=== PATIENT | male | born 1955 | race Caucasian/White ===

== ENCOUNTER 2019-07-05 10:54 | Emergency (ER) | payer OTHER, SELFPAY ==
[2019-07-05 11:01] VITALS: BP 143/76; PULSE 67; RESP 18; TEMP 35.9; O2SAT 97
[2019-07-05 11:13] LABS: Add Manual Diff / Slide Review NO; Basophils Absolute Auto 0 /uL (0-100); Basophils Percent Auto 0.8 % (0-2); Eosinophils Absolute Auto 200 /uL (0-450); Eosinophils Percent Auto 3.3 % (2-4); Hematocrit 46.8 % (41-53); Hemoglobin 16.1 g/dL (13.5-17.5); Lymphocytes Absolute Auto 1300 /uL (1100-4500); Lymphocytes Percent Auto 21.7 % (25-40); Mean Corpuscular HGB Conc 34.3 % (30-36); Mean Corpuscular Volume 93.2 fL (80-100); Monocytes Absolute Auto 700 /uL (0-900); Monocytes Percent Auto 11.4 % (3-14); Neutrophils Absolute Auto 3900 /uL (1500-7000); Neutrophils Percent Auto 62.8 % (50-75); Platelet Count 164 X10^3/uL (150-400); Red Blood Cell Count 5.02 X10^6/uL (4.5-5.9); Red Cell Distribution Width 14.5 % (11.6-14.8); White Blood Cell Count 6.2 X10^3/uL (4.5-11.0)
[2019-07-05 11:20] LABS: Prothrombin Time 11.4 SECONDS (10.1-12.7)
[2019-07-05 11:22] LABS: PTT Partial Thromboplastin Tim 32 SECONDS (26.4-36.2)
[2019-07-05 11:25] LABS: Alanine Aminotransferase 15 IU/L (<50); Albumin 4.3 g/dL (3.5-5.0); Albumin Globulin Ratio 1.6 (1.0-2.8); Alkaline Phosphatase 53 U/L (38-126); Aspartate Aminotransferase 25 IU/L (17-59); Bilirubin Total 0.9 mg/dL (0.2-1.3); Blood Urea Nitrogen 10 mg/dL (9-20); Calcium 9.4 mg/dL (8.4-10.2); Carbon Dioxide 28 mmol/L (22-32); Chloride 106 mmol/L (98-107); Estimated Glomerular Filt Rate > 60.0 mL/min (>60); Globulin 2.7 g/dL (1.7-4.1); Glucose 101 mg/dL (80-110); HEMOLYSIS < 15 (0-50); Lipase 45 U/L (23-300); Potassium 4.6 mmol/L (3.4-5.1); Sodium 140 mmol/L (137-145)
--- NOTE | 2019-07-05 13:33 | DI.CT.S_ITS ---
PROCEDURE: CT CHEST ABD PEL W CON INDICATIONS: severe R sided pain, extensive CA hx TECHNIQUE: After the administration of intravenous contrast, 5 mm thick sections acquired from the lung apices to the symphysis. 5 mm coronal and sagittal reformats were performed, with additional 7 mm MIP reformats through the lungs. For radiation dose reduction, the following was used: automated exposure control, adjustment of mA and/or kV according to patient size. COMPARISON: None. FINDINGS: Image quality: Excellent. CHEST: Lungs and pleura: There is a 1.8 cm lobulated/spiculated mass in the right upper lobe suspicious for primary lung cancer. No acute airspace opacities. No pleural effusions or pneumothorax. Central and peripheral airways appear patent and normal in caliber. Mediastinum: There is a 1.6 cm diameter right hilar lymph node suspicious for metastasis. No enlarged mediastinal or left hilar lymph nodes. Heart size is normal. No pericardial effusion. Thoracic aorta and central pulmonary arteries are normal in size. Esophagus is normal in caliber. Small hiatal hernia. Chest wall: No axillary or supraclavicular adenopathy by size criteria. Thyroid gland is normal. ABDOMEN: Solid organs: There is a 5 mm indeterminate hepatic hypodensity in the anterior segment of the right hepatic lobe. Liver is normal in size and enhancement. Gallbladder contains small stones. Biliary system is non dilated. Pancreas enhances normally. Spleen is normal in size and enhancement. The adrenal glands are nodular bilaterally. There is a 3.7x4.3 cm mass just below that of adrenal. Kidneys demonstrate normal size and enhancement, without hydronephrosis. Peritoneum and bowel: Bowel loops demonstrate normal caliber. There are scattered colonic diverticula. No definitive CT findings to suggest acute diverticulitis. There is thickening of the distal sigmoid colon and rectum. Rectal lumen appears narrowed. Normal appendix. No free air. There is a trace amount of free air. Nodes and vessels: No retroperitoneal or mesenteric adenopathy by size criteria. There is fusiform aortic ectasia measuring up to 2.8 cm. Moderate atherosclerosis. The inferior vena cava are normal in size. Miscellaneous: No ventral hernias. PELVIS: Genitourinary: Bladder wall is diffusely thickened. Enlarged prostate. There is a branching vessel in the presacral area demonstrating filling defects, probably a partially thrombosed vein. Miscellaneous: No inguinal hernias or adenopathy. Bones: There is sclerotic appearance of the posterior right ninth rib with associated soft tissue mass suspicious for metastasis.. Mild expansile appearance of the right 10th rib. No vertebral body compression fractures. IMPRESSION: 1. A 1.8 cm lobulated/spiculated mass in the right upper lobe highly suspicious for primary lung cancer. 2. A 1.6 cm right hilar lymph node suspicious for hilar leigh metastasis. 3. Abnormal appearance of the right ninth and 10th ribs suspicious for osseous metastasis. There is a soft tissue mass associated with the right ninth rib lesion. 4. A 3.7 x 4.3 cm mass adjacent to the left adrenal gland, either an adrenal mass or enlarged lymph node, suspicious for metastases. 5. Thickening of the distal sigmoid colon and rectum. Rectal lumen appears narrowed. Cannot exclude superimposed rectal neoplasm. A differential diagnosis is inflammatory or infectious etiology. Endoscopic examination is recommended. 6. A 5 mm indeterminate hypodensity in the anterior segment right hepatic lobe. 7. Small gallstones. 8. A branching vessel in the presacral area, probably a thrombosed vein. 9. Diffuse thickening of the urinary bladder. This finding may be secondary to cystitis or chronic bladder outlet obstruction. 10. Enlarged prostate. 11. Diverticulosis without diverticulitis. The result was discussed with Dr. Martinez. Dictated by: Lu Prince M.D. on 07/05/2019 at 14:11 Approved by: Lu Prince M.D. on 07/05/2019 at 14:36
[2019-07-05 13:38] VITALS: BP 138/84; PULSE 53; RESP 17; O2SAT 96
[2019-07-05 14:23] VITALS: BP 174/88; PULSE 57; RESP 18; O2SAT 99
--- NOTE | 2019-07-05 19:32 | ED_ITS ---
HPI - Abdominal Pain General Chief Complaint: Abdominal Pain Stated Complaint: hurting real bad right side stomach Time Seen by Provider: 07/05/19 13:33 Source: patient Mode of arrival: Ambulatory Limitations: no limitations History of Present Illness HPI narrative: 64M smoker with extensive alcohol history presents with ongoing right upper quadrant pain for approximately 2 months. He states he suffered a fall about when this started but he is rather convinced it is not related. He does report an extensive history of alcohol abuse and drinks upwards of 1/5 whiskey daily but has not had a drink in the past few days. He states he has never had any trouble quitting alcohol ?cold turkey? and has never had any withdrawal symptoms let alone seizures or other. He does report a history of previously diagnosed prostate cancer and was treated with some radiation when living in [facility]. He generally feels unwell but denies any chest pain or significant shortness of breath nor home office this fever or chills. He states on occasion his bowels are atypical and sometimes are off colored other times change in caliber. He denies any unexplained weight loss MD complaint: abdominal pain Onset (ago): month(s) Pain Consistency: constant Location: RUQ Severity: moderate Quality: cramping Radiation: none Relieving factors: rest Exacerbating factors: movement Associated symptoms: denies other symptoms Related Data Allergies Allergy/AdvReac Type Severity Reaction Status Date / Time No Known Drug Allergies Allergy Verified 07/05/19 11:01 Review of Systems Constitutional Constitutional: Denies chills, Denies fatigue, Denies fever(s), Denies frequent falls, Denies lethargy and Denies weakness Eyes Eyes: Denies change in vision, Denies eye discharge, Denies irritation and Denies loss of vision ENT Ears, Nose, Mouth, and Throat: Denies change in voice, Denies dizziness, Denies neck pain, Denies sore throat and Denies throat swelling Cardiovascular Cardiovascular: Denies chest pain, Denies irregular heart rhythm, Denies lighth eadedness, Denies palpitations, Denies dyspnea, Denies dyspnea on exertion and Denies orthopnea Respiratory Respiratory: Denies cough, Denies dyspnea, Denies dyspnea on exertion and Denies wheezing Gastrointestinal Gastrointestinal: Reports abdominal pain, Reports change in bowel habits, Denies diarrhea, Denies nausea and Denies vomiting Genitourinary Genitourinary: Denies hematuria, Denies flank pain, Denies urinary incontinence and Denies urinary urgency Musculoskeletal Musculoskeletal: Denies back pain, Denies muscle weakness, Denies neck pain, Denies numbness and Denies tingling Integumentary/Breasts Skin/Breast: Denies pruritus, Denies erythema, Denies rash and Denies wounds Neurologic Neurologic: Denies behavioral changes, Denies confusion, Denies dizziness, Denies frequent falls, Denies loss of vision, Denies numbness, Denies tingling and Denies weakness Psychiatric Psychiatric: Denies anxiety, Denies behavioral changes, Denies confusion, Denies depression, Denies homicidal ideation and Denies suicidal ideation Endocrine Endocrine: Denies fatigue, Denies flushing and Denies palpitations Hematologic/Lymphatic Hematologic/Lymphatic: Denies easy bruising Allergic/Immunologic Allergic/Immunologic: Denies urticaria, Denies throat swelling and Denies wheezing Patient History Social History Smoking Status: Current every day smoker Smoking Status: Current every day smoker alcohol intake frequency: 0-2 drinks per day Substance Use Type: does not use Exam Narrative Exam Narrative: GENERAL: [64] year old patient appears stated age. Well- nourished, well-developed patient, in mild distress. Obviously uncomfortable and massaging his right upper belly HEAD: Atraumatic. Normocephalic. EYES: Pupils equal round and reactive. Extraocular motions intact. No scleral icterus. No injection or drainage. ENT: Nose without bleeding, purulent drainage. Throat without erythema, tonsillar hypertrophy or exudate. Airway patent. NECK: Trachea midline. Non tender CARDIOVASCULAR: Regular rate and rhythm without murmurs, gallops, or rubs. RESPIRATORY: Clear to auscultation. Breath sounds equal bilaterally. No wheezes, rales, or rhonchi. GASTROINTESTINAL: Abdomen soft, tender to palpation in the right upper quadrant and along the right inferior ribs, nondistended. EXTREMITIES: No edema or joint tenderness. BACK: Nontender without deformity or crepitance. No flank tenderness. NEURO: AOx3. SKIN: No rash or erythema of visible areas Initial Vital Signs Initial Vital Signs: Vital Signs Temperature 96.7 F L 07/05/19 11:01 Pulse Rate 67 07/05/19 11:01 Respiratory Rate 18 07/05/19 11:01 Blood Pressure 143/76 H 07/05/19 11:01 Pulse Oximetry 97 07/05/19 11:01 Course Course Course Narrative: Extensive discussion with patient to follow-up with local oncology. Patient is very resistant but understands why this recommendation is important. He states he plans to reach out to his oncologist in [facility] and I have given him my email address in case he needs any help getting with the office Orders Ordered: ED Orders 07/05/19 11:08 Complete Blood Count AUTO DIFF Stat Comprehensive Metabolic Panel Stat Lipase Stat Partial Thromboplastin Time Stat Prothrombin Time INR Stat 07/05/19 13:33 CT chest abd pel w con Stat Vital Signs Vital signs: Vital Signs - 8 hr 07/05/19 13:38 07/05/19 14:23 Pulse Rate 53 L 57 L Respiratory Rate 17 18 Blood Pressure [arm] 138/84 174/88 H Pulse Oximetry 96 99 MDM - Abdominal Pain Lab Data Result diagrams: 07/05/19 11:08 07/05/19 11:08 Labs: Lab Results 07/05/19 07/05/19 07/05/19 Range/Units 11:08 11:08 11:08 WBC 6.2 (4.5-11.0) X10^3/uL RBC 5.02 (4.5-5.9) X10^6/uL Hgb 16.1 (13.5-17.5) g/dL Hct 46.8 (41-53) % MCV 93.2 (80-100) fL MCH 32.0 (26-34) PG MCHC 34.3 (30-36) % RDW 14.5 (11.6-14.8) % Plt Count 164 (150-400) X10^3/uL Neut % (Auto) 62.8 (50-75) % Lymph % (Auto) 21.7 L (25-40) % Amador % (Auto) 11.4 (3-14) % Eos % (Auto) 3.3 (2-4) % Baso % (Auto) 0.8 (0-2) % Neut # (Auto) 3900 (7833-0278) /uL Lymph # (Auto) 1300 (8635-1993) /uL Amador # (Auto) 700 (0-900) /uL Eos # (Auto) 200 (0-450) /uL Baso # (Auto) 0 (0-100) /uL PT 11.4 (10.1-12.7) SECONDS INR 1.0 (0.9-1.3) APTT 32 (26.4-36.2) SECONDS Sodium 140 (137-145) mmol/L Potassium 4.6 (3.4-5.1) mmol/L Chloride 106 (98-107) mmol/L Carbon Dioxide 28 (22-32) mmol/L BUN 10 (9-20) mg/dL Creatinine 1.00 (0.66-1.25) mg/dL Estimated GFR > 60.0 (>60) mL/min BUN/Creatinine Ratio 10.0 (6-22) Glucose 101 (80-110) mg/dL Calcium 9.4 (8.4-10.2) mg/dL Total Bilirubin 0.9 (0.2-1.3) mg/dL AST 25 (17-59) IU/L ALT 15 (<50) IU/L Alkaline Phosphatase 53 (38-126) U/L Total Protein 7.0 (6.3-8.2) g/dL Albumin 4.3 (3.5-5.0) g/dL Globulin 2.7 (1.7-4.1) g/dL Albumin/Globulin Ratio 1.6 (1.0-2.8) Lipase 45 (23-300) U/L Imaging Data CT scan - abdomen/pelvis: Radiologist's Impression: Chart Viewer Diagnostics DATE TYPE STATUS AUTHOR Hx 07/05/19 13:33 Francia Prince Rylan Yeung 64, M1 DEP ER, Main ED 177.8cm 95.1kg BMI: 30.1kg/m? Abdominal Pain Search Chart No Data to Display No Data to Display ONSET Today 14:23 Lumpkin,Rylan Alhaji 64 M [address] [address] [address] Scan Report Signed Patient: Rylan Yeung MMR#: [id number] : [id number]:[id number] Age/Sex: 64 / MDate of Service: 07/05/19 Loc: ED Accession Number: [id number] Procedure: CT chest abd pel w con Ordering Provider: Sha Martinez D.O. PROCEDURE: CT CHEST ABD PEL W CON INDICATIONS: severe R sided pain, extensive CA hx TECHNIQUE: After the administration of intravenous contrast, 5 mm thick sections acquired from the lung apices to the symphysis. 5 mm coronal and sagittal reformats were performed, with additional 7 mm MIP reformats through the lungs. For radiation dose reduction, the following was used: automated exposure control, adjustment of mA and/or kV according to patient size. COMPARISON: None. FINDINGS: Image quality: Excellent. CHEST: Lungs and pleura: There is a 1.8 cm lobulated/spiculated mass in the right upper lobe suspicious for primary lung cancer. No acute airspace opacities. No pleural effusions or pneumothorax. Central and peripheral airways appear patent and normal in caliber. Mediastinum: There is a 1.6 cm diameter right hilar lymph node suspicious for metastasis. No enlarged mediastinal or left hilar lymph nodes. Heart size is normal. No pericardial effusion. Thoracic aorta and central pulmonary arteries are normal in size. Esophagus is normal in caliber. Small hiatal hernia. Chest wall: No axillary or supraclavicular adenopathy by size criteria. Thyroid gland is normal. ABDOMEN: Solid organs: There is a 5 mm indeterminate hepatic hypodensity in the anterior segment of the right hepatic lobe. Liver is normal in size and enhancement. Gallbladder contains small stones. Biliary system is non dilated. Pancreas enhances normally. Spleen is normal in size and enhancement. The adrenal glands are nodular bilaterally. There is a 3.7x4.3 cm mass just below that of adrenal. Kidneys demonstrate normal size and enhancement, without hydronephrosis. Peritoneum and bowel: Bowel loops demonstrate normal caliber. There are scattered colonic diverticula. No definitive CT findings to suggest acute diverticulitis. There is thickening of the distal sigmoid colon and rectum. Rectal lumen appears narrowed. Normal appendix. No free air. There is a trace amount of free air. Nodes and vessels: No retroperitoneal or mesenteric adenopathy by size criteria. There is fusiform aortic ectasia measuring up to 2.8 cm. Moderate atherosclerosis. The inferior vena cava are normal in size. Miscellaneous: No ventral hernias. PELVIS: Genitourinary: Bladder wall is diffusely thickened. Enlarged prostate. There is a branching vessel in the presacral area demonstrating filling defects, probably a partially thrombosed vein. Miscellaneous: No inguinal hernias or adenopathy. Bones: There is sclerotic appearance of the posterior right ninth rib with associated soft tissue mass suspicious for metastasis.. Mild expansile appearance of the right 10th rib. No vertebral body compression fractures. IMPRESSION: 1. A 1.8 cm lobulated/spiculated mass in the right upper lobe highly suspicious for primary lung cancer. 2. A 1.6 cm right hilar lymph node suspicious for hilar leigh metastasis. 3. Abnormal appearance of the right ninth and 10th ribs suspicious for osseous metastasis. There is a soft tissue mass associated with the right ninth rib lesion. 4. A 3.7 x 4.3 cm mass adjacent to the left adrenal gland, either an adrenal mass or enlarged lymph node, suspicious for metastases. 5. Thickening of the distal sigmoid colon and rectum. Rectal lumen appears narrowed. Cannot exclude superimposed rectal neoplasm. A differential diagnosis is inflammatory or infectious etiology. Endoscopic examination is recommended. 6. A 5 mm indeterminate hypodensity in the anterior segment right hepatic lobe. 7. Small gallstones. 8. A branching vessel in the presacral area, probably a thrombosed vein. 9. Diffuse thickening of the urinary bladder. This finding may be secondary to cystitis or chronic bladder outlet obstruction. 10. Enlarged prostate. 11. Diverticulosis without diverticulitis. The result was discussed with Dr. Martinez. Dictated by: Lu Prince M.D. on 07/05/2019 at 14:11 Approved by: Lu Prince M.D. on 07/05/2019 at 14:36 MDM Narrative Medical decision making narrative: Discharge Plan Departure Patient Disposition: Home Clinical Impression: Pain in rib, Metastatic cancer Discharge Date/Time: 07/05/19 15:08 Instructions: DI for Lung Cancer Activity Restrictions/Additional Instructions: *You have been diagnosed with [ metastatic cancer ] *What to do: *Follow up with your primary care provider in 2-3 days, call for an appointment. Let them know you were seen in the Emergency Department and that we ask that you be seen in follow up *Return to ER if you should have any new, worsening or concerning symptoms email me at [email or web address] if you need to Referrals: Colleen Balbuena MD [Physician] -
--- NOTE | 2019-08-02 10:35 | ONC.MSW ---
Description: T/C visit time confirmation Activity: Called and spoke with pt to confirm that he has a 1:40pm check-in time for his 2:00pm appt. today.
== END 2019-07-05 15:08 | disposition home or self-care (01) ==
PROVIDERS: Emergency Provider Emergency Medicine
DX: R07.81 Pleurodynia (principal); C78.00 Secondary malignant neoplasm of unspecified lung
CPT/HCPCS: 36415; 71260; 74177; 80053; 83690; 85025; 85610; 85730; 99284; Q9967

== ENCOUNTER → 2019-08-07 10:55 | Outpatient (CLI) | payer OTHER, SELFPAY ==
--- NOTE | 2019-08-07 10:56 | DI.US.S_ITS ---
PROCEDURE: US ABDOMEN COMPLETE INDICATIONS: RIGHT UPPER QUADRANT PAIN TECHNIQUE: Real-time scanning was performed of the abdominal and retroperitoneal organs, with image documentation. COMPARISON: None. FINDINGS: Liver: The liver is mildly hyperechoic suggesting fatty infiltration. Gallbladder: The gallbladder wall measures 2.7 mm in diameter. In there is extensive ringdown artifacts suggesting adenomyomatosis of the gallbladder wall. No pericholecystic fluid or sonographic White sign. Biliary ducts: Intrahepatic bile ducts are non-dilated. Extrahepatic bile duct caliber measures 4.3 mm. Normal is 6-7 mm or less in diameter, or 10 mm or less post-cholecystectomy. Pancreas: The pancreas is nonvisualized due to overlying bowel gas. Spleen: Spleen is normal in size and homogeneous in echotexture. Kidneys: Kidneys are normal in size and echotexture. Right kidney measures 11.4 cm long; left kidney measures 12.3 cm long. No hydronephrosis or nephrolithiasis. No solid masses. Aorta: Visualized aorta is normal in caliber at less than 3 cm. the proximal aorta measures 2.8 cm in diameter in the distal aorta measures 2.9 cm in diameter. Iliacs: Proximal common iliac arteries are normal in caliber at less than 2.5 cm. IVC: Intrahepatic inferior vena cava is patent. Miscellaneous: No free abdominal fluid. IMPRESSION: 1. Increased hepatic echogenicity noted likely related to fatty infiltration of the liver but other sources of hepatocellular disease cannot be excluded. 2. Adenomyomatosis of the gallbladder wall without findings to suggest cholecystitis or choledocholithiasis. 3. Abdominal aortic ectasia. 5 year sonographic surveillance recommended. Dictated by: Paola Flores M.D. on 08/07/2019 at 15:38 Approved by: Paola Flores M.D. on 08/07/2019 at 15:41
== END ==
PROVIDERS: PCP Internal Medicine; Referring Provider Internal Medicine; Visit Provider Internal Medicine
DX: R10.11 Right upper quadrant pain (principal); I77.811 Abdominal aortic ectasia; K82.9 Disease of gallbladder, unspecified
CPT/HCPCS: 76700

== ENCOUNTER → 2019-08-27 11:12 | Outpatient (CLI) | payer OTHER, SELFPAY ==
[2019-08-29 07:36] LABS: COVID19 Sendout Not Detected (Not Detected)
== END ==
PROVIDERS: PCP Internal Medicine; Visit Provider Physician Assistant
DX: Z01.812 Encounter for preprocedural laboratory examination (principal)
CPT/HCPCS: 87635

== ENCOUNTER 2019-08-29 12:40 | Day surgery (SDC) | payer OTHER, MEDICAID, SELFPAY ==
--- NOTE | 2019-08-29 | PATH_ITS ---
[facility] Accession Number: [id number] . 01 Material submitted: . PART A: colon - POLYP AT 25 PART B: colon - BIOPSY POLYP AT 15 . 01 Clinical history: . FLEX SIG . 02 Diagnosis: A. Designated Polyp At 25, Biopsy: Colonic mucosa with no significant diagnostic abnormality. Additional levels were examined. Negative for dysplasia and malignancy. . B. Designated Polyp At 15, Biopsy: Colonic mucosa with metastatic prostate adenocarcinoma; please see comment. [facility] 08/31/2019 1421 Local . 02 Comment: Per Dr. Estrada, the biopsy from part B was taken at approximately 10 cm from the anal verge. As part of routine quality officer, Dr. Perry also reviewed part B of this case and agrees with the diagnosis. Dr. Davis discussed preliminary results of a poorly-differentiated malignant neoplasm on 08/30/[address] Estrada. . 02 Electronically signed: . Indu Davis MD, Pathologist NPI- [id number] . 01 Gross description: . Part A: POLYP AT 25: Received in formalin are 2 fragment(s) of johnson, soft tissue measuring 0.2 x 0.2 x 0.2 cm to 0.3 x 0.2 x 0.2 cm submitted entirely in 1 cassette(s) Part B: BIOPSY POLYP AT 15: Received in formalin are multiple fragment(s) of johnson, soft tissue measuring 0.1 x 0.1 x 0.1 cm to 0.3 x 0.2 x 0.2 cm submitted entirely in 1 cassette(s) /[facility] [place] 08/29/2019 2040 Local . 02 Microscopic: . A. Additional levels were examined. . B. Immunohistochemical stains were performed to characterize the cells of interest. All control stains showed appropriate reactivity. . RESULTS: Cytokeratin ESTEFANIA: Positive. Prostate specific antigen: Positive. CD45: Negative. S-100: Negative. Synaptophysin: Negative. Chromogranin: Negative. CK7: Negative. CK20: Negative. TTF-1: Negative. Napsin A: Negative. CDX2: Negative. SATB-2: Negative. . INTERPRETATION: The immunophenotype is compatible with prostatic site of origin. The absence of other site-specific phenotypic markers mitigates against a diagnosis of colonic adenocarcinoma, lung adenocarcinoma, and neuroendocrine carcinoma. . . * This test was developed and its performance characteristics determined by [facility]. It has not been cleared or approved by the U.S. Food and Drug Administration. The FDA has determined that such clearance or approval is not necessary. This test is used for clinical purposes. It should not be regarded as investigational or for research. . 02 Pathologist provided ICD-10: C78.5 . 02 CPT . 051165, 863153, B48162, D48665 Performed at: 01 [facility] [address] [id number] MD Papito Kidd MD Phone: [phone] Performed at: 02 [facility] [address] [place] [id number] MD Indu Davis MD Phone: [phone]
[2019-08-29 13:14] VITALS: BP 115/83; PULSE 72; RESP 12; TEMP 36.4; O2SAT 97
[2019-08-29] MEDS: LACTATED RINGERS 1,000 ML 42 ML IV (13:22)
--- NOTE | 2019-08-29 13:36 | P.HP_ITS ---
History of Present Illness History of Present Illness Date Patient Seen: 08/29/19 Time Patient Seen: 13:36 Chief complaint: [id number] FLEX SIG Narrative: The patient is a gentleman with known prostate and lung cancer with metastatic disease who had a PET scan that lit up into the area of the rectosigmoid and he is brought in for flexible sigmoidoscopy to evaluate the area. He says had he is having frequent mucoid stools in his appetite is poor. He has had very abnormal sexual function for several years. Patient History Medical History Alcohol abuse (Chronic) BPH loc w urin obs/LUTS (Chronic) Closed left tibial fracture (Acute) Current smoker (Chronic) Diverticula, colon (Inactive) Intermittent epigastric abdominal pain (Acute) Liver metastases (Suspected) Lung cancer (Suspected ~06/2019) Metastasis to adrenal gland (Suspected) Metastasis to bone (Acute) Prostate cancer (Chronic ~2015) Smoker unmotivated to quit (Acute) Tarry stool (Acute) Surgical History Hx of tonsillectomy (Acute) Family & Social History Family History Mother Cancer Father Stomach cancer Tobacco & Substance use: Tobacco type cigarettes Smoking Status Current every day smoker Smoking packs per day 2 alcohol intake current alcohol intake frequency 0-2 drinks per day Substance Use Type does not use Meds Home Medications and Allergies Home Medications Medication Instructions Recorded Confirmed Type omeprazole 40 mg capsule,delayed 40 mg PO BID #60 cap 08/10/19 08/29/19 Rx release bicalutamide [Casodex] 50 mg PO DAILY #30 tab 08/16/19 08/29/19 Rx Allergies Allergy/AdvReac Type Severity Reaction Status Date / Time No Known Drug Allergies Allergy Verified 08/29/19 13:04 Review of Systems Review of Systems Narrative: No chest pain. Not short of breath. Has an intermittent cough that is not changed. Having difficulty moving his bowels and marked decrease in his appetite. Exam Vital Signs (past 8 hours): - 08/29/19 13:14 Temperature 97.5 F L Pulse Rate 72 Respiratory Rate 12 Blood Pressure 115/83 Pulse Oximetry 97 Oxygen Delivery Method Room Air Narrative Exam Narrative: Cooperative but kind of a confusing historian. No apparent di stress. His lungs are clear to auscultation. No rales or rhonchi. Heart regular rate and rhythm without murmur gallop. Abdomen is scaphoid soft nontender. May have a small umbilical hernia. There are no masses. Penis without lesion. Alert and oriented. Assessment & Plan Assessment & Plan narrative: Patient with an abnormal PET scan concerned that he may have colon cancer. I have discussed flexible sigmoidoscopy with the patient including risks of bleeding perforation. Will proceed without sedation if possible.
--- NOTE | 2019-08-29 13:44 | PM.PREOP ---
Pre-operative Note COVID-19 COVID-19 status: Not tested Interval Note History & Physical reviewed/Exam performed by Physician: Yes Changes to H&P: No ASA Class (for procedural sedation): III
--- NOTE | 2019-08-29 14:18 | PM.OP.ENDO ---
Operative Date/Time/Diagnoses Date of procedure: 08/29/19 Time of procedure: 14:18 Pre-op diagnosis: Abnormal PET scan Post-op diagnosis: same (Large partially obstructing mass at 10 cm from the anal verge. Huge hard prostate. Only able to feel the distal portion.) Procedure & Clinicians Study performed: Flexible sigmoidoscopy Same procedure as scheduled: Yes Indications: Diagnostic Surgeon: Wilbur Estrada Procedure Notes SCOAP/Timeout: Perform Procedure in detail: The patient was placed in left lateral decubitus position. Digital exam was remarkable for visible external hemorrhoids and a very hard large prostate. I could only feel the distal portion of it but was surprised that it size and hardness. The scope was inserted and advanced to level of about 10 cm where encountered a fleshy mass. It occupied most of the wall and was near obstructing though I was able to get the scope around it. I advanced to level of 30 cm where the patient became uncomfortable. I decided not to go further at his it would add very little to this patient's overall care at this time. It was actually very difficult due to edema in the wall to tell if there was an additional lesion at 18 cm. I biopsied this area. The scope was then brought back into the area of the known visible mass were I took multiple biopsies. The surface was soft and fleshy but it clearly was hard to be need the surface and was fixed based on the way behaves when pushed with the scope. The biopsies being completed the scope was removed. Scope withdrawal time: Not applicable Sedation minutes: 0 (No sedation given) Findings: possible cancer Specimen(s): other (Biopsies at 10 and 18 cm) Complications: none Impression: Large Cancer clinically at 10 cm from the anal verge. Post-procedure Recommendations: Will call with biopsy results Disposition: same day surgery
[2019-08-29 14:19] VITALS: BP 149/78; PULSE 64; TEMP 36.4; O2SAT 96
--- NOTE | 2019-08-29 14:28 | SUR.PHASEII ---
Patient arrived from [facility]. Awake. Denied pain, reported feeling abd gas. Juice provided.
--- NOTE | 2019-08-29 15:02 | SUR.PHASEII ---
Discharge note: Patient passed gas and expelled blood, small to moderate amount. Dr. Estrada notified. No new orders.
--- NOTE | 2019-08-29 15:26 | SUR.PHASEII ---
Patient provided wipes for cleaning himself. Dressed independently. Gait steady.
[2019-08-29 17:55] LABS: Prothrombin Time 11.1 SECONDS (10.1-12.7)
[2019-08-29 17:57] LABS: PTT Partial Thromboplastin Tim 29 SECONDS (26.4-36.2)
[2019-08-29 18:01] LABS: Add Manual Diff / Slide Review NO; Basophils Absolute Auto 0 /uL (0-100); Basophils Percent Auto 0.4 % (0-2); Eosinophils Absolute Auto 100 /uL (0-450); Eosinophils Percent Auto 1.8 % (2-4); Hematocrit 45.2 % (41-53); Hemoglobin 15.9 g/dL (13.5-17.5); Lymphocytes Absolute Auto 1200 /uL (1100-4500); Lymphocytes Percent Auto 18.1 % (25-40); Mean Corpuscular HGB Conc 35.2 % (30-36); Mean Corpuscular Hemoglobin 32.2 PG (26-34); Mean Corpuscular Volume 91.5 fL (80-100); Monocytes Absolute Auto 500 /uL (0-900); Monocytes Percent Auto 7.7 % (3-14); Neutrophils Absolute Auto 4800 /uL (1500-7000); Platelet Count 173 X10^3/uL (150-400); Red Blood Cell Count 4.94 X10^6/uL (4.5-5.9); Red Cell Distribution Width 14.5 % (11.6-14.8); White Blood Cell Count 6.7 X10^3/uL (4.5-11.0)
[2019-08-29 20:08] LABS: Alanine Aminotransferase 12 IU/L (<50); Albumin 4.4 g/dL (3.5-5.0); Albumin Globulin Ratio 1.6 (1.0-2.8); Alkaline Phosphatase 55 U/L (38-126); Aspartate Aminotransferase 25 IU/L (17-59); BUN Creatinine Ratio 6.4 (6-22); Bilirubin Total 0.8 mg/dL (0.2-1.3); Blood Urea Nitrogen 6 mg/dL (9-20); Calcium 9.4 mg/dL (8.4-10.2); Carbon Dioxide 29 mmol/L (22-32); Chloride 102 mmol/L (98-107); Estimated Glomerular Filt Rate > 60.0 mL/min (>60); Globulin 2.7 g/dL (1.7-4.1); Glucose 88 mg/dL (80-110); HEMOLYSIS < 15 (0-50); Potassium 3.9 mmol/L (3.4-5.1); Sodium 139 mmol/L (137-145); Total Protein 7.1 g/dL (6.3-8.2)
== END 2019-08-29 15:07 | disposition home or self-care (01) ==
PROVIDERS: Thoracic Surgery (Cardiothoracic Vascular Surgery); PCP Internal Medicine; Referring Provider Specialist; Visit Provider Specialist
PROC: 0DJD8ZZ Inspection of Lower Intestinal Tract, Via Natural or Artificial Opening Endoscopic (ICD-10-PCS; CPT 45378; principal; 2019-08-29 13:45)
DX: C78.5 Secondary malignant neoplasm of large intestine and rectum (principal); C61 Malignant neoplasm of prostate; C79.51 Secondary malignant neoplasm of bone; F17.210 Nicotine dependence, cigarettes, uncomplicated
CPT/HCPCS: 45331; 36415; 80053; 85025; 85610; 85730

== ENCOUNTER → 2019-10-12 09:46 | Outpatient (CLI) | payer OTHER, SELFPAY ==
[2019-10-13 10:10] LABS: COVID19 Sendout Not Detected (Not Detect)
== END ==
PROVIDERS: PCP Internal Medicine; Visit Provider Physician Assistant
DX: Z01.818 Encounter for other preprocedural examination (principal)
CPT/HCPCS: 87635

== ENCOUNTER 2019-10-15 13:17 | Day surgery (SDC) | payer OTHER, SELFPAY ==
[2019-10-11 08:13] VITALS: BMI 29.2
[2019-10-15] VITALS (8 sets, daily range): BP systolic 104–148; BP diastolic 59–99; PULSE 58–80; RESP 12–22; TEMP 36–36.2; O2SAT 97–100; BMI 29.2
--- NOTE | 2019-10-15 | DI.RAD.S_ITS ---
PROCEDURE: XR CHEST 1V INDICATIONS: PORT A CATH PLACEMENT TECHNIQUE: One view of the chest was acquired. COMPARISON: [facility], CT, CT CHEST ABD PEL W CON, 07/05/2019, 13:38. FINDINGS: Surgical changes and devices: Port-A-Cath from a left-sided approach extends into the distal SVC after crossing the midline. Lungs and pleura: Lungs are mildly abnormal with reduced inspiratory volume which accentuates lung markings. Note is again made of a mass just lateral to the middle third of the right hilum in the lung parenchyma, above the minor fissure. This was previously present on CT scanning 07/05/19 and measures approximately 2.4 cm.. No pleural effusions or pneumothorax. Mediastinum: Mediastinal contours appear normal. Heart size is normal. Bones and chest wall: No suspicious bony lesions. Overlying soft tissues appear unremarkable. IMPRESSION: Port-A-Cath in normal position from left-sided approach, no pneumothorax. Lung mass on the right, mid chest level, previously documented. Dictated by: Eduard Johnston M.D. on 10/15/2019 at 15:48 Approved by: Eduard Johnston M.D. on 10/15/2019 at 15:50
--- NOTE | 2019-10-15 14:11 | PM.HP.1 ---
History of Present Illness History of Present Illness Date Patient Seen: 10/15/19 Time Patient Seen: 14:11 Chief complaint: [id number] PORT-A-CATH PLACEMENT Narrative: The patient is a gentleman with widely metastatic long and prostate cancers. He is here for Port-A-Cath placement in anticipation of chemotherapy. 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) Metastasis to bone (Chronic) Prostate cancer (Chronic ~2016) Smoker unmotivated to quit (Acute) Tarry stool (Resolved) Surgical History Hx of tonsillectomy (Acute) Family & Social History Family History Mother Cancer Father Stomach cancer Social History: household members none Tobacco & Substance use: Tobacco type cigarettes Smoking Status Current every day smoker Smoking packs per day 3 alcohol intake current alcohol intake frequency 0-2 drinks per day Substance Use Type does not use Meds Home Medications and Allergies Home Medications Medication Instructions Recorded Confirmed Type omeprazole 40 mg capsule,delayed 40 mg PO BID #60 cap 08/10/19 10/11/19 Rx release bicalutamide [Casodex] 50 mg PO DAILY #30 tab 08/16/19 10/11/19 Rx lisinopril 20 mg PO DAILY #30 tab 09/03/19 10/11/19 Rx Allergies Allergy/AdvReac Type Severity Reaction Status Date / Time No Known Drug Allergies Allergy Verified 08/29/19 13:04 Review of Systems Review of Systems Narrative: Long time smoker with lung disease. No active cough or cold at this time. No chest pain or known heart disease. No black bowel movements. He has known prostate cancer in his rectum. Exam Vital Signs (past 8 hours): - 10/15/19 13:48 Temperature 97.1 F L Pulse Rate 68 Respiratory Rate 17 Blood Pressure 129/80 Pulse Oximetry 98 Oxygen Delivery Method Room Air Narrative Exam Narrative: Cooperative gentleman. No distress. Eyes are nonicteric. He has a black defect in his left iris. (states it has been there all his life.) No nodes in the neck or supraclavicular areas. Lungs are clear to auscultation no rales or rhonchi. Heart regular rate and rhythm without murmur gallop. Abdomen is soft and nontender at this time. Patient has no rashes on his chest wall. Alert and oriented x3. Assessment & Plan Assessment & Plan narrative: Patient with 2 forms of advanced cancer. He is about to undergo chemotherapy. I have discussed placement of port with him. Risks of bleeding, infection, lung collapse, DVT with possible arm swelling or pulmonary embolism or all discussed with him. He appears to understand wishes to proceed.
--- NOTE | 2019-10-15 14:18 | PM.PREOP ---
Pre-operative Note COVID-19 COVID-19 status: Negative Result date/Date tested (Pos, Neg/Pending): 10/12/19 Interval Note History & Physical reviewed/Exam performed by Physician: Yes Changes to H&P: No
[2019-10-15] MEDS: LACTATED RINGERS 1,000 ML 100 ML IV (14:19)
[2019-10-15] MEDS: CEFAZOLIN 2 GM/100 ML FROZ.PIGGY IV (14:37)
--- NOTE | 2019-10-15 14:55 | SUR.OPER ---
Supine on padded OR bed, head on gel donut, left arm padded and tucked at side, legs uncrossed, safety belt at thigh, tape over blanket over lower legs .
[2019-10-15] MEDS: LIDOCAINE 1% 30 ML INJ (15:03)
[2019-10-15] MEDS: HEPARIN 5,000 UNIT, SODIUM CHLORIDE 0.9% 50 ML IV (15:04)
--- NOTE | 2019-10-15 15:44 | SUR.PHASEI ---
Pt arousing, no response to voice, simple mask dc'd. Satting 100% room air. Resp even and regular. Skin warm and dry.
--- NOTE | 2019-10-15 15:48 | P.OP_ITS ---
Operative Date/Time/Diagnoses Date of procedure: 10/15/19 Time of procedure: 15:48 Pre-op diagnosis: Lung and prostate cancer Post-op diagnosis: same Procedure & Clinicians Procedure: Placement of left subclavian Port-A-Cath Same procedure as scheduled: Yes Indications: Patient is a gentleman for placement of a Port-A-Cath. He did not want a line placed in his neck if at all possible. He is right-hand dominant so the left-hand side was chosen. Surgeon: Wilbur Estrada Click Yes if Unassisted: Yes Anesthesia Type: General Operative Notes Findings: Tip in the distal SVC. No evidence of pneumothorax. Closure Type: primary Specimen(s): none sent Prosthetic devices, grafts, tissues, transplants, or devices: Port-A-Cath Estimated Blood Loss (mL): 10 Blood products transfused: none Procedure in detail: The patient was placed supine on the operating room table with a roll placed between his shoulder blades. He was prepped and draped in the usual fashion. Local anesthetic was infiltrated and a transverse incision made paralleling the clavicle. It was carried down into the subcu. Needle was inserted on 1st attempt into the subclavian vein. Guidewire was passed and the needle removed. Pocket was created inferior to the incision. The port was put together in tapered to appropriate length. The guidewire was used to pass dilator introducer over it. This was done with fluoroscopic visualization. The guidewire and dilator were removed leaving the introducer in place. The catheter was then threaded through the introducer which was peeled away leaving the catheter tip in the distal SVC. The port was aspirated and flushed with heparinized saline. The port was secured to the chest wall with interrupted 2 0 silk sutures. The subcu was closed with 3 0 Vicryl. The skin was closed r unning 4 0 Vicryl subcuticular stitch and Steri-Strips. Dressing was applied the patient was taken the recovery area extubated in good condition. Complications: none Post-operative Condition: stable Disposition: PACU Plan for aftercare: Follow-up with Oncology and with me to examine the wound.
--- NOTE | 2019-10-15 16:02 | SUR.PHASEI ---
1557 to [facility], stretcher down, report given to TONY Pink. Discussed pain med with the patient, he wouldn't answer after telling him twice what was available. Pt stating that he needs scotch and a doobie. Wants to go home. To [facility], report given. Language foul, making inappropriate comments to nursing staff, wanting staff to crawl in bed with him, remarked that one nurse's could watch. Told patient that it wasn't appropriate to talk that way to the staff.
--- NOTE | 2019-10-15 16:26 | SUR.PHASEII ---
Patient verbally inappropriate upon admission and remained that way throughout. Patient spoke profanely throughout. Went over all discharge instructions with patient and then again with patient's friend Alfred who was his responsible alliance party and ride. Both parties denied any questions. Patient discharged with all belongings per order and escorted out of building to friend's car.
== END 2019-10-15 16:25 | disposition home or self-care (01) ==
PROVIDERS: PCP Internal Medicine; Referring Provider Specialist; Visit Provider Specialist
PROC: (CPT 36561; principal; 2019-10-15 14:15)
DX: C61 Malignant neoplasm of prostate (principal); C34.90 Malignant neoplasm of unspecified part of unspecified bronchus or lung; Z45.2 Encounter for adjustment and management of vascular access device; F17.210 Nicotine dependence, cigarettes, uncomplicated
CPT/HCPCS: 36561; 71045; 76000; C1788; J0690; J1100; J1644; J2250; J2405; J2704; J3010

== ENCOUNTER → 2019-10-29 13:26 | Outpatient (CLI) | payer OTHER, SELFPAY ==
[2019-10-29 13:55] LABS: Add Manual Diff / Slide Review NO; Basophils Absolute Auto 100 /uL (0-100); Eosinophils Absolute Auto 200 /uL (0-450); Eosinophils Percent Auto 2.2 % (2-4); Hematocrit 40.2 % (41-53); Hemoglobin 14.2 g/dL (13.5-17.5); Lymphocytes Absolute Auto 1600 /uL (1100-4500); Lymphocytes Percent Auto 21.3 % (25-40); Mean Corpuscular HGB Conc 35.4 % (30-36); Mean Corpuscular Volume 87.6 fL (80-100); Monocytes Absolute Auto 100 /uL (0-900); Monocytes Percent Auto 1.2 % (3-14); Neutrophils Absolute Auto 5500 /uL (1500-7000); Neutrophils Percent Auto 74.3 % (50-75); Platelet Count 177 X10^3/uL (150-400); Red Blood Cell Count 4.59 X10^6/uL (4.5-5.9); Red Cell Distribution Width 15.2 % (11.6-14.8); White Blood Cell Count 7.5 X10^3/uL (4.5-11.0)
[2019-10-29 14:10] LABS: Alanine Aminotransferase 19 IU/L (<50); Albumin 4.5 g/dL (3.5-5.0); Albumin Globulin Ratio 2.1 (1.0-2.8); Alkaline Phosphatase 61 U/L (38-126); Aspartate Aminotransferase 24 IU/L (17-59); BUN Creatinine Ratio 21.5 (6-22); Bilirubin Total 1.2 mg/dL (0.2-1.3); Blood Urea Nitrogen 20 mg/dL (9-20); Calcium 9.8 mg/dL (8.4-10.2); Carbon Dioxide 28 mmol/L (22-32); Chloride 100 mmol/L (98-107); Estimated Glomerular Filt Rate > 60.0 mL/min (>60); Globulin 2.1 g/dL (1.7-4.1); Glucose 94 mg/dL (80-110); HEMOLYSIS < 15 (0-50); Potassium 3.8 mmol/L (3.4-5.1); Sodium 135 mmol/L (137-145); Total Protein 6.6 g/dL (6.3-8.2)
[2019-10-29 14:39] LABS: Prostate Specific Antigen 26.2 ng/mL (0.10-4.00)
[2019-10-29 14:41] LABS: Testosterone 15.8 ng/dL (71.8-623)
== END ==
PROVIDERS: PCP Internal Medicine; Referring Provider Internal Medicine Hematology & Oncology; Visit Provider Internal Medicine Hematology & Oncology
DX: C34.90 Malignant neoplasm of unspecified part of unspecified bronchus or lung (principal); C61 Malignant neoplasm of prostate
CPT/HCPCS: 36415; 80053; 84153; 84403; 85025

== ENCOUNTER 2019-11-10 12:16 | Emergency (ER) | payer OTHER, MEDICAID, SELFPAY ==
[2019-11-10 12:20] VITALS: BP 114/71; PULSE 79; RESP 24; TEMP 36.8; O2SAT 100
[2019-11-10 12:34] VITALS: BP 112/77; PULSE 75; RESP 23; TEMP 36.8; O2SAT 100
[2019-11-10] MEDS: SODIUM CHLORIDE 0.9% 1,000 ML 1000 ML IV ×2 (12:57→13:52)
[2019-11-10 13:00] LABS: Prothrombin Time 11.9 SECONDS (10.1-12.7)
[2019-11-10 13:02] LABS: PTT Partial Thromboplastin Tim 33 SECONDS (26.4-36.2)
[2019-11-10 13:06] LABS: Add Manual Diff / Slide Review NO; Basophils Absolute Auto 0 /uL (0-100); Basophils Percent Auto 0.6 % (0-2); Eosinophils Absolute Auto 100 /uL (0-450); Eosinophils Percent Auto 1.4 % (2-4); Hematocrit 36.3 % (41-53); Hemoglobin 12.9 g/dL (13.5-17.5); Lymphocytes Absolute Auto 1600 /uL (1100-4500); Lymphocytes Percent Auto 42.6 % (25-40); Mean Corpuscular HGB Conc 35.5 % (30-36); Mean Corpuscular Hemoglobin 31.1 PG (26-34); Mean Corpuscular Volume 87.5 fL (80-100); Monocytes Absolute Auto 800 /uL (0-900); Monocytes Percent Auto 20.6 % (3-14); Neutrophils Absolute Auto 1300 /uL (1500-7000); Neutrophils Percent Auto 34.8 % (50-75); Platelet Count 195 X10^3/uL (150-400); Red Blood Cell Count 4.14 X10^6/uL (4.5-5.9); Red Cell Distribution Width 16.6 % (11.6-14.8); White Blood Cell Count 3.8 X10^3/uL (4.5-11.0)
[2019-11-10 13:08] LABS: BUN Creatinine Ratio 14.1 (6-22); Blood Urea Nitrogen 10 mg/dL (9-20); Calcium 9.4 mg/dL (8.4-10.2); Carbon Dioxide 25 mmol/L (22-32); Chloride 103 mmol/L (98-107); Estimated Glomerular Filt Rate > 60.0 mL/min (>60); Glucose 107 mg/dL (80-110); HEMOLYSIS < 15 (0-50); Potassium 3.6 mmol/L (3.4-5.1); Sodium 135 mmol/L (137-145)
[2019-11-10 13:09] LABS: Lactate (Lactic Acid) 2.2 mmol/L (0.7-2.1)
[2019-11-10 13:11] LABS: Alanine Aminotransferase 16 IU/L (<50); Albumin 4.1 g/dL (3.5-5.0); Albumin Globulin Ratio 1.6 (1.0-2.8); Alkaline Phosphatase 75 U/L (38-126); Aspartate Aminotransferase 26 IU/L (17-59); Bilirubin Total 0.6 mg/dL (0.2-1.3); Bilirubin Unconjugated 0.6 mg/dL (0.0-1.1); Globulin 2.5 g/dL (1.7-4.1); HEMOLYSIS < 15 (0-50); Total Protein 6.6 g/dL (6.3-8.2)
--- NOTE | 2019-11-10 13:22 | ED_ITS ---
HPI - Nausea/Vomiting/Diarrhea General Chief complaint: Nausea/Vomiting/Diarrhea Stated complaint: Dehydrated, chemo treatment Time Seen by Provider: 11/10/19 13:05 Source: patient Mode of arrival: Wheelchair Limitations: no limitations History of Present Illness HPI Narrative: CC: Dehydration HPI: The patient is a 64-year-old male who comes into the emergency department stating that he believes he is dehydrated. He is complaining of right-sided abdominal pain. He has hemorrhoids and is complaining of severe rectal pain and raw rectum. States that he has a history of colon cancer as well as lung cancer. He is having loose stools. He denies any blood. He states that he is living on the toilet. He denies any fever chills or sweats. He has had no back pain. He has had no nausea or vomiting. He is not having chest pain. He has fractured rib on the right side. He denies any cough or shortness of breath more than usual. His primary complaint at this time is being lightheaded and dehydrated. He has drank a 5th of whiskey per day and smokes 3 packs of cigarettes per day. He is being treated for non-small cell lung cancer. He has had no chest pain cough shortness of breath more than usual. He has had no palpitations and no troubles urinating. Related Data Home Medications Medication Instructions Recorded Confirmed ondansetron HCl [Zofran] 4 mg PO Q6H PRN 10/25/19 10/25/19 Previous Rx's Medication Instructions Recorded lisinopril 20 mg PO DAILY #30 tab 09/03/19 hydrocodone-acetaminophen [[place]] 1 tab PO Q4H PRN #10 tab 10/15/19 dicyclomine 20 mg PO QID PRN #20 tab 11/10/19 loperamide 2 mg PO Q4H PRN #20 cap 11/10/19 ondansetron HCl [Zofran] 4 mg PO Q6H PRN #20 tab 11/10/19 triamcinolone acetonide 1 applictn TOP TID #454 gram 11/10/19 Allergies Allergy/AdvReac Type Severity Reaction Status Date / Time No Known Drug Allergies Allergy Verified 10/15/19 14:16 Review of Systems Review of Systems Narrative: His review of systems were all negative except for those mentioned in the history of present illness. 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) Metastasis to bone (Chronic) Prostate cancer (Chronic ~2016) Smoker unmotivated to quit (Acute) Tarry stool (Resolved) Surgical History Hx of tonsillectomy (Acute) Family History Mother Cancer Father Stomach cancer Social History household members: none Smoking Status: Current every day smoker alcohol intake: current substance use type: does not use and marijuana Smoking Status: Current every day smoker alcohol intake frequency: 0-2 drinks per day Substance Use Type: does not use Exam Narrative Exam Narrative: PHYSICAL EXAM: CONSTITUTIONAL: Awake, Alert, Oriented, Coherent, Cooperative in NAD. The patient was completely unclothed sitting on the commode. HEAD: AT/NC EENT: PERRL, FROM of eyes, NOSE:No epistaxis or nasal drainage MOUTH:Oral mucosa is moist . NECK: Supple, no obvious JVD, Trachea is midline without stridor, no palpable LN. SPINE: Palpationof the cervical, Thoracic, Lumbar or Sacral spine reveals no gross deformity or tenderness. No CVA tenderness. THORAX: No deformity, retractions, chest wall tenderness. LUNGS: Clear, symmetrical breath sounds without respiratory distress. HEART: Normal heart tones, regular rhythm and rate without murmur. ABDOMEN: Soft, tender in the right upper quadrant and right lower quadrant with mild guarding no rebound no rigidity. The patient's rectum he has very large hemorrhoids arm with the mucosa around the hemorrhoids arm raw and tender. EXTREMITIES: No edema, deformity, tenderness or cyanosis. SKIN: No rash, bruising, NEURO: Awake, alert, oriented, conversive, cranial nerves II-XII are symmetrical , moves all 4 extremities and is ambulatory. Initial Vital Signs Initial Vital Signs: Vital Signs Temperature 98.3 F 11/10/19 12:20 Pulse Rate 79 11/10/19 12:20 Respiratory Rate 24 11/10/19 12:20 Blood Pressure 114/71 11/10/19 12:20 Pulse Oximetry 100 11/10/19 12:20 Course Course Course Narrative: 1438: The patient's lactate is 2.2 suggesting that the patient is dehydrated. CT scan has been completed but the results remain pending. GFR is greater than 60. Liver function tests are within normal limits. The patient's GI panel is pending at this time. The patient has been given triamcinolone cream 0.5% for his hemorrhoids and pain of proctitis. He was advised to apply it twice a day to his rectum and the area of maximum pain and discomfort 1500: The patient's CT scan of the abdomen reveals 1. Significant interval progression of distal colonic malignancy involving almost the entire rectum and extending into the distal sigmoid. This is not an obstructing neoplasm. 2. Significant interval progression of local regional perirectal and tyson sigmoid tumor spread. 3. Findings suggest possible tumor invasion of the local venous outflow extending to near the entrance of the left internal iliac vein to the left common iliac vein. The finding was present before the tubular structure appears more prominent currently. 4. Sclerotic T9 metastatic lesion with associated soft tissue mass as before 5. 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 Balbuena's office records reveal that the patient has metastatic prostate cancer to his colon and rectum. He has small-cell carcinoma of the lung which is much more aggressive than the prostate cancer. He is primarily being treated for his lung cancer. with the patient's rectal discomfort and worsening rectal cancer, he may need a diverting colostomy. He asked us if he will need a colostomy and we said he m ight if he develops a bowel obstruction. Orders Ordered: Discontinued Medications Sodium Chloride (Normal Saline 0.9%) 1,000 mls @ 1,000 mls/hr IV BOLUS ONE Stop: 11/10/19 13:41 Last Infusion: 11/10/19 13:46 Dose: 0 mls/hr Documented by: Admin: 11/10/19 12:57 Dose: 1,000 mls/hr Documented by: VINNIE Sodium Chloride (Normal Saline 0.9%) 1,000 mls @ 1,000 mls/hr IV BOLUS ONE Stop: 11/10/19 14:46 Last Infusion: 11/10/19 15:10 Dose: 0 mls/hr Documented by: Admin: 11/10/19 13:52 Dose: 1,000 mls/hr Documented by: NEERU Sodium Chloride (Normal Saline 0.9%) 1,000 mls @ 150 mls/hr IV CONT SHANTI Last Infusion: 11/10/19 16:30 Dose: 0 mls/hr Documented by: Admin: 11/10/19 15:23 Dose: 150 mls/hr Documented by: NEERU Ondansetron HCl (Zofran) 4 mg IV NOW ONE Stop: 11/10/19 12:43 Last Admin: 11/10/19 12:58 Dose: Not Given Documented by: VINNIE Triamcinolone Acetonide (Kenalog 0.5% Cream) 1 applic TOP NOW ONE Stop: 11/10/19 14:03 Last Admin: 11/10/19 14:33 Dose: 1 applic Documented by: NEERU Vital Signs Vital signs: Vital Signs - 8 hr 11/10/19 12:20 11/10/19 12:34 11/10/19 14:16 Temperature 98.3 F 98.3 F Pulse Rate 79 75 71 Respiratory Rate 24 23 14 Blood Pressure 114/71 112/77 112/77 Pulse Oximetry 100 100 99 11/10/19 16:05 Temperature Pulse Rate 65 Respiratory Rate Blood Pressure 140/82 Pulse Oximetry 100 MDM - Nausea/Vomiting/Diarrhea Medical Records Attestation: I reviewed the patient's medical records. Lab Data Attestation: I reviewed the patient's lab results. Result diagrams: 11/10/19 12:25 11/10/19 12:25 Labs: Lab Results 11/10/19 11/10/19 11/10/19 Range/Units 12:25 12:25 12:25 WBC 3.8 L (4.5-11.0) X10^3/uL RBC 4.14 L (4.5-5.9) X10^6/uL Hgb 12.9 L (13.5-17.5) g/dL Hct 36.3 L (41-53) % MCV 87.5 (80-100) fL MCH 31.1 (26-34) PG MCHC 35.5 (30-36) % RDW 16.6 H (11.6-14.8) % Plt Count 195 (150-400) X10^3/uL Neut % (Auto) 34.8 L (50-75) % Lymph % (Auto) 42.6 H (25-40) % [place] % (Auto) 20.6 H (3-14) % Eos % (Auto) 1.4 L (2-4) % Baso % (Auto) 0.6 (0-2) % Neut # (Auto) 1300 L (1165-8740) /uL Lymph # (Auto) 1600 (4727-0100) /uL [place] # (Auto) 800 (0-900) /uL Eos # (Auto) 100 (0-450) /uL Baso # (Auto) 0 (0-100) /uL ESR 16 H (0-15) MM/HR PT 11.9 (10.1-12.7) SECONDS INR 1.0 (0.9-1.3) APTT 33 D (26.4-36.2) SECONDS Sodium 135 L (137-145) mmol/L Potassium 3.6 (3.4-5.1) mmol/L Chloride 103 (98-107) mmol/L Carbon Dioxide 25 (22-32) mmol/L BUN 10 (9-20) mg/dL Creatinine 0.71 (0.66-1.25) mg/dL Estimated GFR > 60.0 (>60) mL/min BUN/Creatinine Ratio 14.1 (6-22) Glucose 107 (80-110) mg/dL Lactate (0.7-2.1) mmol/L Calcium 9.4 (8.4-10.2) mg/dL Total Bilirubin (0.2-1.3) mg/dL Conjugated Bilirubin (0.0-0.3) md/dL Unconjugated Bilirubin (0.0-1.1) mg/dL AST (17-59) IU/L ALT (<50) IU/L Alkaline Phosphatase (38-126) U/L Total Protein (6.3-8.2) g/dL Albumin (3.5-5.0) g/dL Globulin (1.7-4.1) g/dL Albumin/Globulin Ratio (1.0-2.8) Stl C. cayetanensis PCR (Not Detect) Stool Rotavirus (PCR) (Not Detect) Stool Adenovirus (PCR) (Not Detect) Stool Astrovirus (PCR) (Not Detect) Stool Cryptosporidium PCR (Not Detect) Stl E.coli Shiga Tox PCR (Not Detect) St Sh/Enteroin Ecoli PCR (Not Detect) Stool E coli O157 PCR (Not Detect) Stl Enterotoxigenic E PCR (Not Detect) Stool EPEC (PCR) (Not Detect) Stl E. histolytica PCR (Not Detect) Stool Giardia Lamblia PCR (Not Detect) Stool Sapovirus (PCR) (Not Detect) Stl P. shigelloides PCR (Not Detect) St Y.enterocolitica PCR (Not Detect) Stool Vibrio (PCR) (Not Detect) Stl Vibrio cholerae PCR (Not Detect) Stl Enteroaggr Ecoli PCR (Not Detect) Stl Norovirus GI/GII PCR (Not Detect) Campylobacter (PCR) (Not Detect) C. difficile Tox (PCR) (Not Detect) Salmonella (PCR) (Not Detect) 11/10/19 11/10/19 11/10/19 Range/Units 12:25 12:25 13:28 WBC (4.5-11.0) X10^3/uL RBC (4.5-5.9) X10^6/uL Hgb (13.5-17.5) g/dL Hct (41-53) % MCV (80-100) fL MCH (26-34) PG MCHC (30-36) % RDW (11.6-14.8) % Plt Count (150-400) X10^3/uL Neut % (Auto) (50-75) % Lymph % (Auto) (25-40) % [place] % (Auto) (3-14) % Eos % (Auto) (2-4) % Baso % (Auto) (0-2) % Neut # (Auto) (5377-1475) /uL Lymph # (Auto) (6060-6313) /uL [place] # (Auto) (0-900) /uL Eos # (Auto) (0-450) /uL Baso # (Auto) (0-100) /uL ESR (0-15) MM/HR PT (10.1-12.7) SECONDS INR (0.9-1.3) APTT (26.4-36.2) SECONDS Sodium (137-145) mmol/L Potassium (3.4-5.1) mmol/L Chloride (98-107) mmol/L Carbon Dioxide (22-32) mmol/L BUN (9-20) mg/dL Creatinine (0.66-1.25) mg/dL Estimated GFR (>60) mL/min BUN/Creatinine Ratio (6-22) Glucose (80-110) mg/dL Lactate 2.2 H (0.7-2.1) mmol/L Calcium (8.4-10.2) mg/dL Total Bilirubin 0.6 (0.2-1.3) mg/dL Conjugated Bilirubin 0.0 (0.0-0.3) md/dL Unconjugated Bilirubin 0.6 (0.0-1.1) mg/dL AST 26 (17-59) IU/L ALT 16 (<50) IU/L Alkaline Phosphatase 75 (38-126) U/L Total Protein 6.6 (6.3-8.2) g/dL Albumin 4.1 (3.5-5.0) g/dL Globulin 2.5 (1.7-4.1) g/dL Albumin/Globulin Ratio 1.6 (1.0-2.8) Stl C. cayetanensis PCR Not detected (Not Detect) Stool Rotavirus (PCR) Not detected (Not Detect) Stool Adenovirus (PCR) Not detected (Not Detect) Stool Astrovirus (PCR) Not detected (Not Detect) Stool Cryptosporidium PCR Not detected (Not Detect) Stl E.coli Shiga Tox PCR Not detected (Not Detect) St Sh/Enteroin Ecoli PCR Not detected (Not Detect) Stool E coli O157 PCR Not detected (Not Detect) Stl Enterotoxigenic E PCR Not detected (Not Detect) Stool EPEC (PCR) Not detected (Not Detect) Stl E. histolytica PCR Not detected (Not Detect) Stool Giardia Lamblia PCR Not detected (Not Detect) Stool Sapovirus (PCR) Not detected (Not Detect) Stl P. shigelloides PCR Not detected (Not Detect) St Y.enterocolitica PCR Not detected (Not Detect) Stool Vibrio (PCR) Not detected (Not Detect) Stl Vibrio cholerae PCR Not detected (Not Detect) Stl Enteroaggr Ecoli PCR Not detected (Not Detect) Stl Norovirus GI/GII PCR Not detected (Not Detect) Campylobacter (PCR) Not detected (Not Detect) C. difficile Tox (PCR) Not detected (Not Detect) Salmonella (PCR) Not detected (Not Detect) 11/10/19 Range/Units 15:26 WBC (4.5-11.0) X10^3/uL RBC (4.5-5.9) X10^6/uL Hgb (13.5-17.5) g/dL Hct (41-53) % MCV (80-100) fL MCH (26-34) PG MCHC (30-36) % RDW (11.6-14.8) % Plt Count (150-400) X10^3/uL Neut % (Auto) (50-75) % Lymph % (Auto) (25-40) % [place] % (Auto) (3-14) % Eos % (Auto) (2-4) % Baso % (Auto) (0-2) % Neut # (Auto) (8737-0773) /uL Lymph # (Auto) (1361-5754) /uL [place] # (Auto) (0-900) /uL Eos # (Auto) (0-450) /uL Baso # (Auto) (0-100) /uL ESR (0-15) MM/HR PT (10.1-12.7) SECONDS INR (0.9-1.3) APTT (26.4-36.2) SECONDS Sodium (137-145) mmol/L Potassium (3.4-5.1) mmol/L Chloride (98-107) mmol/L Carbon Dioxide (22-32) mmol/L BUN (9-20) mg/dL Creatinine (0.66-1.25) mg/dL Estimated GFR (>60) mL/min BUN/Creatinine Ratio (6-22) Glucose (80-110) mg/dL Lactate 0.5 L (0.7-2.1) mmol/L Calcium (8.4-10.2) mg/dL Total Bilirubin (0.2-1.3) mg/dL Conjugated Bilirubin (0.0-0.3) md/dL Unconjugated Bilirubin (0.0-1.1) mg/dL AST (17-59) IU/L ALT (<50) IU/L Alkaline Phosphatase (38-126) U/L Total Protein (6.3-8.2) g/dL Albumin (3.5-5.0) g/dL Globulin (1.7-4.1) g/dL Albumin/Globulin Ratio (1.0-2.8) Stl C. cayetanensis PCR (Not Detect) Stool Rotavirus (PCR) (Not Detect) Stool Adenovirus (PCR) (Not Detect) Stool Astrovirus (PCR) (Not Detect) Stool Cryptosporidium PCR (Not Detect) Stl E.coli Shiga Tox PCR (Not Detect) St Sh/Enteroin Ecoli PCR (Not Detect) Stool E coli O157 PCR (Not Detect) Stl Enterotoxigenic E PCR (Not Detect) Stool EPEC (PCR) (Not Detect) Stl E. histolytica PCR (Not Detect) Stool Giardia Lamblia PCR (Not Detect) Stool Sapovirus (PCR) (Not Detect) Stl P. shigelloides PCR (Not Detect) St Y.enterocolitica PCR (Not Detect) Stool Vibrio (PCR) (Not Detect) Stl Vibrio cholerae PCR (Not Detect) Stl Enteroaggr Ecoli PCR (Not Detect) Stl Norovirus GI/GII PCR (Not Detect) Campylobacter (PCR) (Not Detect) C. difficile Tox (PCR) (Not Detect) Salmonella (PCR) (Not Detect) Point of Care Testing Stool Occult Blood Negative Glucose POC 112 Urine Dip Bedside Urine Glucose Negative Bedside Urine Bilirubin - Negative Bedside Urine Ketone - Negative Urine Specific [place] 1.000 Bedside Urine Occult Blood - Negative Bedside Urine pH 6.5 Bedside Urine Protein - Negative Bedside Urine Urobilinogen - Negative Bedside Urine Nitrite - Negative Bedside Urine Leukocytes - Negative Esterase Discharge Plan Departure Patient Disposition: Home Clinical Impression: Small cell lung cancer, Dehydration, Anal or rectal pain, External hemorrhoids, Rectal malignant neoplasm Diarrhea Qualifiers: Diarrhea type: unspecified type Qualified Code(s): R19.7 - Diarrhea, unspecified Abdominal pain Qualifiers: Abdominal location: right lower quadrant Qualified Code(s): R10.31 - Right lower quadrant pain Discharge Date/Time: 11/10/19 16:44 Instructions: DI for Dehydration -- Adult, DI for Abdominal Pain-Adult, DI for Vomiting -- Adult Activity Restrictions/Additional Instructions: 1. You need to drink a minimum of 2-4 L of fluid per day. 2. For your rectal pain you need to apply triamcinolone 0.5% cream t 2-4 times per day 3. You need to follow up with Dr. Balbuena in 48-72 hours. 4. Use the loperamide as directed for your diarrhea and loose stools 5. Use Bentyl/ dicyclomine 20 mg 3 times day for any abdominal pain and cramps. 6. Use Zofran 4 mg, 1-2 tablets as necessary for nausea and vomiting. 7. Take a probiotic to help you with your bowel movements and diarrhea. 8. Try in fine natural yogurt to help with your soft stools. 9 return to the emergency department at any time your having pain discomfort or problems. Prescriptions: New triamcinolone acetonide 0.5 % cream 1 applictn TOP TID Qty: 454 RF: 0 loperamide 2 mg capsule 2 mg PO Q4H PRN (Reason: loose stool) Qty: 20 RF: 0 ondansetron HCl [Zofran] 4 mg tablet 4 mg PO Q6H PRN (Reason: nausea and vomiting) Qty: 20 RF: 1 dicyclomine 20 mg tablet 20 mg PO QID PRN (Reason: abdominal cramps and pain) Qty: 20 RF: 1 No Action lisinopril 20 mg Tablet 20 mg PO DAILY Qty: 30 RF: 5 ondansetron HCl [Zofran] 4 mg Tablet 4 mg PO Q6H PRN (Reason: Nausea And Vomiting) RF: 0 hydrocodone-acetaminophen [[place]] 7.5-325 mg tablet 1 tab PO Q4H PRN (Reason: painful procedure) Qty: 10 RF: 0 Referrals: Husam Hagen MD [Primary Care Provider] -
[2019-11-10 13:24] LABS: Erythrocyte Sedimentation Rate 16 MM/HR (0-15)
--- NOTE | 2019-11-10 14:04 | DI.CT.S_ITS ---
PROCEDURE: CT ABDOMEN PELVIS W CON INDICATIONS: right abdominal pain, colon cancer, diarrhea TECHNIQUE: After the administration of intravenous contrast, 5 mm thick sections acquired from the diaphragm to the symphysis. 5 mm coronal and sagittal reformats were acquired. For radiation dose reduction, the following was used: automated exposure control, adjustment of mA and/or kV according to patient size. COMPARISON: [facility], NM, NM PET CT FUSION SKULL 2 THIGH, 08/15/2019, 14:43. [facility], CT, CT CHEST ABD PEL W CON, 07/05/2019, 13:38. FINDINGS: Image quality: Excellent. ABDOMEN: Lung bases: Lung bases are clear. Heart size is normal. Solid organs: Liver is normal in size and enhancement. Gallbladder is unremarkable. Biliary system is non dilated. Pancreas enhances normally. Spleen is normal in size and enhancement. A 4.4 cm left adrenal adenoma is unchanged. Kidneys demonstrate normal size and enhancement, without hydronephrosis. Peritoneum and bowel: Significant interval progression of a long segment distal colonic cancer which involves almost the entirety of the rectum and extends to involve a portion of the sigmoid. This malignancy does not resultant colonic obstruction. It extends through the serosa into the surrounding fat. There is extensive look for regional spread into the surrounding fat associated lymph node spread. There is possible expansile tumor extending in the internal iliac branches are extending to the superior portion of the left internal iliac. The Nodes and vessels: No retroperitoneal or mesenteric adenopathy by size criteria. Borderline aneurysmal dilatation of the infrarenal abdominal aorta, measuring 3.0 cm. Miscellaneous: No ventral hernias. PELVIS: Genitourinary: Mild diffuse bladder wall thickening. Miscellaneous: Bilateral small inguinal hernias containing fat. Chest inguinal adenopathy. Bones: Sclerotic posterior T9 rib lesion with associated soft tissue mass. This was present on the previous study. No vertebral body compression fractures. IMPRESSION: 1. Significant interval progression of distal colonic malignancy involving almost the entire rectum and extending into the distal sigmoid. This is not an obstructing neoplasm. 2. Significant interval progression of local regional perirectal and perisigmoid tumor spread. 3. Findings suggest possible tumor invasion of the local venous outflow extending to near the entrance of the left internal iliac vein to the left common iliac vein. This finding was present before, the tubular structure appears more prominent currently. 4. Sclerotic T9 metastatic lesion with associated soft tissue mass, as before. 5. The large left adrenal lesion is likely an adenoma. It is stable. Dictated by: Mehran Bowles M.D. on 11/10/2019 at 13:16 Approved by: Mehran Bowles M.D. on 11/10/2019 at 13:37
[2019-11-10 14:16] VITALS: BP 112/77; PULSE 71; RESP 14; O2SAT 99
[2019-11-10] MEDS: TRIAMCINOLONE 0.5% CREAM 1 APPLIC TOP (14:33)
[2019-11-10 14:53] LABS: Reflexed Lactate in 2 Hours Y
[2019-11-10 15:08] LABS: Adenovirus F 40/41 Not Detected (Not Detect); Astrovirus Not Detected (Not Detect); Campylobacter Not Detected (Not Detect); Clostridium difficile toxin AB Not Detected (Not Detect); Cryptosporidium Not Detected (Not Detect); Cyclospora cayetanensis Not Detected (Not Detect); Entamoeba histolytica Not Detected (Not Detect); Enteroaggregative E.coli Not Detected (Not Detect); Enteropathogenic E.coli Not Detected (Not Detect); Enterotoxigenic E.coli It/st Not Detected (Not Detect); Giardia lamblia Not Detected (Not Detect); Norovirus GI/GII Not Detected (Not Detect); Plesiomonsa shigelloides Not Detected (Not Detect); Rotavirus A Not Detected (Not Detect); Salmonella Not Detected (Not Detect); Sapovirus Not Detected (Not Detect); Shiga-like toxin-prod E.coli Not Detected (Not Detect); Shigella/Enteroinvasive E.coli Not Detected (Not Detect); Vibrio Not Detected (Not Detect); Vibrio cholerae Not Detected (Not Detect); Yersinia enterocolitica Not Detected (Not Detect)
[2019-11-10] MEDS: SODIUM CHLORIDE 0.9% 1,000 ML 150 ML IV (15:23)
[2019-11-10 15:46] LABS: Lactate 2HR (Lactic Acid Rflx) 0.5 mmol/L (0.7-2.1)
[2019-11-10 16:05] VITALS: BP 140/82; PULSE 65; O2SAT 100
== END 2019-11-10 16:44 | disposition home or self-care (01) ==
PROVIDERS: Emergency Provider Emergency Medicine; PCP Internal Medicine
DX: E86.0 Dehydration (principal); C34.90 Malignant neoplasm of unspecified part of unspecified bronchus or lung; C20 Malignant neoplasm of rectum; K62.89 Other specified diseases of anus and rectum; R19.7 Diarrhea, unspecified; R10.31 Right lower quadrant pain; K64.4 Residual hemorrhoidal skin tags
CPT/HCPCS: 36415; 74177; 80048; 80076; 81003; 82272; 82962; 83605; 85025; 85610; 85651; 85730; 87507; 96360; 96361; 99284; A9270; J1642

== ENCOUNTER 2019-11-20 12:07 | Emergency (ER) | payer OTHER, MEDICAID, SELFPAY ==
[2019-11-20 12:14] VITALS: BP 113/71; PULSE 77; RESP 15; TEMP 37.1; O2SAT 100; BMI 28.3
[2019-11-20 12:24] LABS: Add Manual Diff / Slide Review NO; Basophils Absolute Auto 0 /uL (0-100); Basophils Percent Auto 1.1 % (0-2); Eosinophils Absolute Auto 0 /uL (0-450); Eosinophils Percent Auto 0.4 % (2-4); Hematocrit 32.2 % (41-53); Hemoglobin 11.7 g/dL (13.5-17.5); Lymphocytes Absolute Auto 1100 /uL (1100-4500); Lymphocytes Percent Auto 24.9 % (25-40); Mean Corpuscular HGB Conc 36.2 % (30-36); Mean Corpuscular Hemoglobin 31.6 PG (26-34); Mean Corpuscular Volume 87.2 fL (80-100); Monocytes Absolute Auto 100 /uL (0-900); Monocytes Percent Auto 2.6 % (3-14); Neutrophils Absolute Auto 3200 /uL (1500-7000); Platelet Count 194 X10^3/uL (150-400); Red Blood Cell Count 3.69 X10^6/uL (4.5-5.9); Red Cell Distribution Width 16.9 % (11.6-14.8); White Blood Cell Count 4.5 X10^3/uL (4.5-11.0)
[2019-11-20] MEDS: SODIUM CHLORIDE 0.9% 1,000 ML 150 ML IV (12:25)
[2019-11-20 12:30] VITALS: BP 113/75; PULSE 76; RESP 13; O2SAT 97
[2019-11-20 12:33] LABS: Blood Urea Nitrogen 18 mg/dL (9-20); Calcium 9.4 mg/dL (8.4-10.2); Carbon Dioxide 26 mmol/L (22-32); Chloride 102 mmol/L (98-107); Estimated Glomerular Filt Rate > 60.0 mL/min (>60); Glucose 104 mg/dL (80-110); HEMOLYSIS < 15 (0-50); Potassium 3.4 mmol/L (3.4-5.1); Sodium 135 mmol/L (137-145)
[2019-11-20 12:45] LABS: Troponin I < 0.012 ng/mL (0.01-0.034)
[2019-11-20 13:00] VITALS: BP 111/77; PULSE 78; RESP 15; O2SAT 96
--- NOTE | 2019-11-20 13:00 | ED_ITS ---
HPI - Nausea/Vomiting/Diarrhea General Chief complaint: Weakness Stated complaint: Gen weakness Time Seen by Provider: 11/20/19 12:17 Source: patient and EMS Mode of arrival: EMS Limitations: no limitations History of Present Illness HPI Narrative: Patient seen here November 09 for the same complaint. Please see notes from previous visit below. Patient has history of rectal cancer prostate cancer as well as lung cancer with metastatic disease. Under the care of Oncology Dr. Balbuena. Currently undergoing treatment. Has had no appetite, has had loose stools. Causing significant irritation to the rectum and anus. 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 Denies any chest pain or dyspnea. No fever chills. Patient was discharged home on last visit. HPI - Nausea/Vomiting/Diarrhea General Chief complaint: Nausea/Vomiting/Diarrhea Stated complaint: Dehydrated, chemo treatment Time Seen by Provider: 11/10/19 13:05 Source: patient Mode of arrival: Wheelchair Limitations: no limitations History of Present Illness HPI Narrative: CC: Dehydration HPI: The patient is a 64-year-old male who comes into the emergency department stating that he believes he is dehydrated. He is complaining of right-sided abdominal pain. He has hemorrhoids and is complaining of severe rectal pain and raw rectum. States that he has a history of colon cancer as well as lung cancer. He is having loose stools. He denies any blood. He states that he is living on the toilet. He denies any fever chills or sweats. He has had no back pain. He has had no nausea or vomiting. He is not having chest pain. He has fractured rib on the right side. He denies any cough or shortness of breath more than usual. His primary complaint at this time is being lightheaded and dehydrated. He has drank a 5th of whiskey per day and smokes 3 packs of cigarettes per day. He is being treated for non-small cell lung cancer. He has had no chest pain cough shortness of breath more than usual. He has had no palpitations and no troubles urinating. Course Course Narrative: 1438: The patient's lactate is 2.2 suggesting that the patient is dehydrated. CT scan has been completed but the results remain pending. GFR is greater than 60. Liver function tests are within normal limits. The patient's GI panel is pending at this time. The patient has been given triamcinolone cream 0.5% for his hemorrhoids and pain of proctitis. He was advised to apply it twice a day to his rectum and the area of maximum pain and discomfort 1500: The patient's CT scan of the abdomen reveals 1. Significant interval progression of distal colonic malignancy involving almost the entire rectum and extending into the distal sigmoid. This is not an obstructing neoplasm. 2. Significant interval progression of local regional perirectal and tyson sigmoid tumor spread. 3. Findings suggest possible tumor invasion of the local venous outflow extending to near the entrance of the left internal iliac vein to the left common iliac vein. The finding was present before the tubular structure appears more prominent currently. 4. Sclerotic T9 metastatic lesion with associated soft tissue mass as before 5. 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 Balbuena's office records reveal that the patient has metastatic prostate cancer to his colon and rectum. He has small-cell carcinoma of the lung which is much more aggressive than the prostate cancer. He is primarily being treated for his lung cancer. with the patient's rectal discomfort and worsening rectal cancer, he may need a diverting colostomy. He asked us if he will need a colostomy and we said he might if he develops a bowel obstruction. Related Data Home Medications Medication Instructions Recorded Confirmed ondansetron HCl [Zofran] 4 mg PO Q6H PRN 10/25/19 11/12/19 Previous Rx's Medication Instructions Recorded lisinopril 20 mg PO DAILY #30 tab 09/03/19 hydrocodone-acetaminophen [[place]] 1 tab PO Q4H PRN #10 tab 10/15/19 dicyclomine 20 mg PO QID PRN #20 tab 11/10/19 loperamide 2 mg PO Q4H PRN #20 cap 11/10/19 ondansetron HCl [Zofran] 4 mg PO Q6H PRN #20 tab 11/10/19 triamcinolone acetonide 1 applictn TOP TID #454 gram 11/10/19 Allergies Allergy/AdvReac Type Severity Reaction Status Date / Time No Known Drug Allergies Allergy Verified 11/20/19 12:14 Review of Systems Review of Systems Narrative: GENERAL: Denies chills, fatigue, malaise, fever, sweats. HEENT: Denies sinus pain, ear pain, sore throat, difficulty swallowing, dizziness. RESPIRATORY: Denies dyspnea, cough, wheezing, hemoptysis, sputum. CARDIOVASCULAR: Denies chest pain, palpitations, orthopnea, edema, GASTROINTESTINAL: Denies nausea, vomiting, complains of abdominal discomfort loose stools and no appetite : Denies dysuria, frequency, incontinence, hematuria, urinary retention. MUSCULOSKELETAL: denies weakness, joint pain, or bony pain SKIN: Denies rash, skin lesions, or other NEUROLOGIC: Denies weakness, headache, numbness, change in speech, confusion, seizures, incoordination. PSYCHIATRIC: No concerning psychosocial issues. 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 Well-nourished, well- developed patient, in no distress, not toxic HEAD: Atraumatic. Normocephalic. EYES: Pupils equal round and reactive. Extraocular motions intact. No scleral icterus. No injection or drainage. NECK: Trachea midline. Non tender CARDIOVASCULAR: Regular rate and rhythm without murmurs, gallops, or rubs. RESPIRATORY: Clear to auscultation. Breath sounds equal bilaterally. No wheezes, rales, or rhonchi. GASTROINTESTINAL: Abdomen soft, non-tender, nondistended. EXTREMITIES: No edema or joint tenderness. BACK: Nontender without deformity or crepitance. No flank tenderness. NEURO: AOx3. SKIN: No rash or erythema of visible areas PSYCH: Anxious, at times upset locally about changes in his life recently. Initial Vital Signs Initial Vital Signs: Vital Signs Temperature 98.7 F 11/20/19 12:14 Pulse Rate 77 11/20/19 12:14 Respiratory Rate 15 11/20/19 12:14 Blood Pressure 113/71 11/20/19 12:14 Pulse Oximetry 100 11/20/19 12:14 Course Course Course Narrative: Patient had structural metal worker here at bedside talking to him. He refuses be admitted today. He wants more time to think about diverting colostomy. I did speak with Dr. Steel General surgery. She was prepared to see patient is admitted today Orders Ordered: Discontinued Medications Sodium Chloride (Normal Saline 0.9%) 1,000 mls @ 150 mls/hr IV CONT SHANTI Last Infusion: 11/20/19 14:26 Dose: 0 mls/hr Documented by: Infusion: 11/20/19 13:44 Dose: 1,000 mls/hr Documented by: Admin: 11/20/19 12:25 Dose: 150 mls/hr Documented by: TRISTON Reevaluation(s) Reevaluation #1: Patient up and walking to the bathroom. During course of stay I did speak with him with structural metal worker at bedside important for him to be admitted and get evaluated by general surgery for diverting colostomy. He states he is still thinking about it but does not want to be admitted today. He desires discharge home. Does not want any further workup or observation or treatment. He states he would like to return to his boat and his pets. He needs to take care of them. bog worker has made arrangements for them to be taken care of if he chooses to stay here Time: 13:32 Vital Signs Vital signs: Vital Signs - 8 hr 11/20/19 12:14 11/20/19 12:30 11/20/19 13:00 Temperature 98.7 F Pulse Rate 77 76 78 Respiratory Rate 15 13 15 Blood Pressure 113/71 113/75 111/77 Pulse Oximetry 100 97 96 MDM - Nausea/Vomiting/Diarrhea Lab Data Result diagrams: 11/20/19 12:12 11/20/19 12:12 Labs: Lab Results 11/20/19 11/20/19 Range/Units 12:12 12:12 WBC 4.5 (4.5-11.0) X10^3/uL RBC 3.69 L (4.5-5.9) X10^6/uL Hgb 11.7 L (13.5-17.5) g/dL Hct 32.2 L (41-53) % MCV 87.2 (80-100) fL MCH 31.6 (26-34) PG MCHC 36.2 H (30-36) % RDW 16.9 H (11.6-14.8) % Plt Count 194 (150-400) X10^3/uL Neut % (Auto) 71.0 (50-75) % Lymph % (Auto) 24.9 L (25-40) % [place] % (Auto) 2.6 L (3-14) % Eos % (Auto) 0.4 L (2-4) % Baso % (Auto) 1.1 (0-2) % Neut # (Auto) 3200 (8388-1651) /uL Lymph # (Auto) 1100 (2799-9388) /uL [place] # (Auto) 100 (0-900) /uL Eos # (Auto) 0 (0-450) /uL Baso # (Auto) 0 (0-100) /uL Sodium 135 L (137-145) mmol/L Potassium 3.4 (3.4-5.1) mmol/L Chloride 102 (98-107) mmol/L Carbon Dioxide 26 (22-32) mmol/L BUN 18 (9-20) mg/dL Creatinine 1.06 (0.66-1.25) mg/dL Estimated GFR > 60.0 (>60) mL/min BUN/Creatinine Ratio 17.0 (6-22) Glucose 104 (80-110) mg/dL Calcium 9.4 (8.4-10.2) mg/dL Troponin I < 0.012 (0.01-0.034) ng/mL Urine Dip Bedside Urine Glucose Negative Bedside Urine Bilirubin - Negative Bedside Urine Ketone - Negative Urine Specific [place] 1.010 Bedside Urine Occult Blood - Negative Bedside Urine pH 6.0 Bedside Urine Protein - Negative Bedside Urine Urobilinogen - Negative Bedside Urine Nitrite - Negative Bedside Urine Leukocytes - Negative Esterase MDM Narrative Medical decision making narrative: No repeat CT scan. Patient has had CT scan he days ago here. Patient is not toxic appearing. No tachycardia or hypotension or hypoxia. Awake alert oriented x4. He does not desire any further workup treatment or admission. He desires discharge home. Discharge Plan Departure Patient Disposition: Home Clinical Impression: Anal or rectal pain, Rectal malignant neoplasm Discharge Date/Time: 11/20/19 14:28 Instructions: Coping With Diarrhea Related to Chemotherapy Activity Restrictions/Additional Instructions: Return immediately if you change your mind to be admitted or if any questions or concerns or if worsening symptoms. See Dr. Balbuena as scheduled. Continue home medications. Prescriptions: No Action triamcinolone acetonide 0.5 % cream 1 applictn TOP TID Qty: 454 RF: 0 loperamide 2 mg capsule 2 mg PO Q4H PRN (Reason: loose stool) Qty: 20 RF: 0 ondansetron HCl [Zofran] 4 mg tablet 4 mg PO Q6H PRN (Reason: nausea and vomiting) Qty: 20 RF: 1 dicyclomine 20 mg tablet 20 mg PO QID PRN (Reason: abdominal cramps and pain) Qty: 20 RF: 1 lisinopril 20 mg Tablet 20 mg PO DAILY Qty: 30 RF: 5 ondansetron HCl [Zofran] 4 mg Tablet 4 mg PO Q6H PRN (Reason: Nausea And Vomiting) RF: 0 hydrocodone-acetaminophen [[place]] 7.5-325 mg tablet 1 tab PO Q4H PRN (Reason: painful procedure) Qty: 10 RF: 0 Referrals: Husam Hagen MD [Primary Care Provider] -
[2019-11-20 14:23] VITALS: BP 117/74; PULSE 72; O2SAT 100
--- NOTE | 2019-11-20 14:23 | ONC.MSW ---
Description: ER Care Coordination Visit Activity: The ONC flash welding machine operator alerted this SILVER SPRAY WORKER while she was on the phone with pt that he was in a crisis on his boat, that he was extremely weak, dyspneic, had been having intractable diarrhea, and could not care for himself. SILVER SPRAY WORKER called pt's friend and requested assistance with caring for pt's dog and cat, and that he was en route to the ER. Pt was found to be very weak, however his labs were unremarkable. He was hydrated, and would have been admitted, however he refused, and wanted to be d/c'd home, due his dog and his boat. SILVER SPRAY WORKER provided bedside counseling re: coping with today's crisis, his declining status, and emotional support re: his worries and concerns for his dog. His dog had jumped into the water and swam over 150 yards to shore in the middle of his initial crisis call to the ONC RN, and he was barely able to get her back on. Discussed the need for him to start making some of end of life decisions, address advance directives, and reassured him that we have found someone who may be interested in adopting his dog, when he's ready-this has been his greatest worry. SILVER SPRAY WORKER and the ER physician also had a lengthy conversation with pt re: the potential for him to have a bowel blockage, due to his growing tumor burden in his colon/rectum, and encouraged him once again to consider a consult with Dr. Godinez at [facility] for a diverting colostomy-pt agreed that it now seems the best option to alleviate the immense pain and discomfort that he is having with the constant leakage, diarrhea and constipation that he's been experiencing. Pt states that his treatment would be far better tolerated without the painful acidic/burning loose diarrhea that he finds unbearable at times. Plan: SILVER SPRAY WORKER will update Dr. Balbuena on pt's status and ER visit, will assist with coordination of surgical consult, which pt has agreed to.
== END 2019-11-20 14:28 | disposition home or self-care (01) ==
PROVIDERS: Emergency Provider Emergency Medicine; PCP Internal Medicine
DX: K62.89 Other specified diseases of anus and rectum (principal); C20 Malignant neoplasm of rectum; R11.2 Nausea with vomiting, unspecified; R19.7 Diarrhea, unspecified
CPT/HCPCS: 80048; 81003; 84484; 85025; 93005; 93010; 96360; 96361; 99283; 99284

== ENCOUNTER → 2020-01-08 13:43 | Outpatient (CLI) | payer OTHER, SELFPAY ==
--- NOTE | 2020-01-08 13:48 | DI.RAD.S_ITS ---
PROCEDURE: XR CHEST 2V INDICATIONS: rib pain TECHNIQUE: 2 views of the chest were acquired. COMPARISON: [facility], CR, XR CHEST 1V, 10/15/2019, 15:21. FINDINGS: Surgical changes and devices: Port-A-Cath from left-sided approach extends into the expected position of the distal SVC just below the azygos arch level.. Lungs and pleura: Lungs are clear except for a 9 mm ovoid radiodensity at the site of prior larger mass seen at the right midlung, 10/15/19. No new lung mass has developed.. No pleural effusions or pneumothorax. Mediastinum: Mediastinal contours are normal. Heart size is normal. Bones and chest wall: No suspicious bony abnormalities. Soft tissues appear unremarkable. IMPRESSION: Normal Port-A-Cath line positioning, reduction in size of a previously present mid chest lung mass measuring 9 mm in maximal dimension currently. Given prior clinical history and current rib pain follow-up by nuclear medicine bone scan may be warranted versus nuclear medicine PET-CT scanning for more accurate assessment of osseous metastatic disease. Dictated by: Eduard Johnston M.D. on 01/08/2020 at 14:32 Approved by: Eduard Johnston M.D. on 01/08/2020 at 14:35
== END ==
PROVIDERS: PCP Internal Medicine; Referring Provider Internal Medicine Hematology & Oncology; Visit Provider Internal Medicine Hematology & Oncology
DX: C79.51 Secondary malignant neoplasm of bone (principal); C61 Malignant neoplasm of prostate; R07.81 Pleurodynia; C34.01 Malignant neoplasm of right main bronchus; C34.11 Malignant neoplasm of upper lobe, right bronchus or lung; Z95.828 Presence of other vascular implants and grafts
CPT/HCPCS: 71046

== ENCOUNTER → 2020-01-10 11:32 | Outpatient (CLI) | payer OTHER, SELFPAY ==
--- NOTE | 2020-01-10 11:34 | DI.RAD.S_ITS ---
PROCEDURE: XR RIBS RT MIN 3V W CXR 1V INDICATIONS: New onset right rib pain in patient with lung cancer TECHNIQUE: 2 views of the right ribs were acquired, along with a single view chest. COMPARISON: [facility], CT, CT ABDOMEN PELVIS W CON, 11/10/2019, 13:31. [facility], CR, XR CHEST 2V, 01/08/2020, 13:39. FINDINGS: Surgical changes and devices: None. Bones and chest wall: No definite acute fractures or dislocations but note is made of a mild cortical undulation at the posterolateral right 8th, 9th, and 10th ribs. These appear to represent sequela of old healed fracture. There is, however, a subtle sclerotic change within the marrow space of the 9th rib just medial to the area of cortical undulation, over a transverse dimension of approximately 6 cm, with an appearance worrisome for representing osteoblastic metastatic disease.. No suspicious bony lesions. Overlying soft tissues appear unremarkable. Lungs and pleura: No pleural effusions or pneumothorax. Lungs appear clear. Mediastinum: Mediastinal contours appear normal. Heart size is normal. A Port-A-Cath from left-sided approach extends in normal position into the distal SVC near the azygos arch area. 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 Dictated by: Eduard Johnston M.D. on 01/10/2020 at 11:57 Approved by: Eduard Johnston M.D. on 01/10/2020 at 12:05
== END ==
PROVIDERS: PCP Internal Medicine; Referring Provider Internal Medicine; Visit Provider Internal Medicine
DX: C34.11 Malignant neoplasm of upper lobe, right bronchus or lung (principal); C34.01 Malignant neoplasm of right main bronchus; R07.81 Pleurodynia; M89.9 Disorder of bone, unspecified; S22.41XS Multiple fractures of ribs, right side, sequela
CPT/HCPCS: 71101

== ENCOUNTER → 2020-01-29 11:09 | Outpatient (CLI) | payer OTHER, SELFPAY ==
--- NOTE | 2020-01-29 11:13 | DI.CT.S_ITS ---
PROCEDURE: CT CHEST ABD PEL W CON INDICATIONS: Eval tx of CA and disease progression TECHNIQUE: After the administration of oral and intravenous contrast, 5 mm thick sections acquired from the lung apices to the symphysis. 5 mm coronal and sagittal reformats were performed, with additional 7 mm coronal MIP reformats through the lungs. For radiation dose reduction, the following was used: automated exposure control, adjustment of mA and/or kV according to patient size. COMPARISON: [facility], NM, NM PET CT FUSION SKULL 2 THIGH, 08/15/2019, 14:43. [facility], CR, XR RIBS RT MIN 3V W CXR 1V, 01/10/2020, 11:24. [facility], CT, CT ABDOMEN PELVIS W CON, 11/10/2019, 13:31. [facility], CT, CT CHEST ABD PEL W CON, 07/05/2019, 13:38. FINDINGS: Image quality: Excellent. CHEST: Lungs and pleura: Right upper lobe juxta minor fissure spiculated pulmonary nodule measuring 1.5 x 1.3 cm, (3/162), previously 2 x 1.8 cm on 07/05/2019. Previously FDG avid. No new or enlarging pulmonary nodules. No acute airspace opacities. No pleural effusions or pneumothorax. Central and peripheral airways appear patent and normal in caliber. Mediastinum: Small right hilar lymph node measuring 1.3 x 1.1 cm, (2/33), previously 1.9 x 1.4 cm on 07/05/2019. Previously FDG avid. No new or enlarging lymph nodes. Heart size is normal. No pericardial effusion. Thoracic aorta and central pulmonary arteries are normal in size. No central pulmonary embolism. Esophagus is normal in caliber. No hiatal hernia. Chest wall: Left-sided port with the catheter tip at the lower 3rd of the SVC. No axillary or supraclavicular adenopathy by size criteria. Thyroid gland is unremarkable. ABDOMEN: Solid organs: Liver is normal in size. The small hypodense focus in the liver is unchanged and has the appearance of a benign cyst or hemangioma. Gallbladder is within normal limits. Probable small gallstones. Biliary system is non dilated. Pancreas enhances normally. Spleen is normal in size and enhancement. Heterogeneous left adrenal mass measuring 4.1 x 3.6 cm, (2/69), previously 4.5 x 3.8 cm on 07/05/2019. No significant increased FDG avidity on the prior PET. No right adrenal nodule. Kidneys demonstrate normal size and enhancement, without hydronephrosis. Peritoneum and bowel: Abnormal thickening of the rectum which has increased compared to the prior exam, (2111). Suspect underlying rectal mass. Pelvic retroperitoneal and presacral edema. Bulky metastatic disease in the pelvis which has increased. Metastatic disease this extends superiorly and abuts the sigmoid colon and bladder. For example: -right mesorectal peripheral enhancing mass measuring 4.9 x 3.8 cm, (113), previously faintly perceptible. -midline pelvic brim lobular mass measuring 4 x 4 cm, (104), previously 1.7 x 1.6 cm on 07/05/2019. This is at the site of prior FDG avidity. All or portions of this metastatic disease is involving the left pelvic vein. The vein is dilated to just inferior of the level of the iliac artery bifurcation. Sigmoid diverticulosis. Appendix is normal. No small bowel obstruction. Nodes and vessels: No retroperitoneal or mesenteric adenopathy by size criteria. Ectasia of the infrarenal abdominal aorta. Moderate to severe calcified atherosclerotic plaque. Miscellaneous: No ventral hernias. Minimal subcutaneous nodularity at the left abdominal wall likely due to injection granulomas. PELVIS: Genitourinary: Bladder is only partially distended and has a trabeculated appearance. Miscellaneous: Small fat containing inguinal hernias. Bones: The sclerotic lesion in the right 9th rib with surrounding soft tissue component, (53), unchanged. Previously FDG avid. No new osseous lesions identified. No vertebral body compression fractures. IMPRESSION: 1. Increased rectal wall thickening with increased bulky metastatic disease in the pelvis and tumor in vein. Findings most compatible with rectal adenocarcinoma. 2. Right upper lobe pulmonary nodule is mildly decreased in size. Right hilar node is decreased in size. Findings most compatible with a primary bronchogenic malignancy. 3. Stable sclerotic lesion with surrounding soft tissue component in the right 9th rib. No new osseous metastases seen. 4. No suspected hepatic metastases. 5. Large heterogeneous left adrenal mass is mildly decreased in size. The size and interval decrease in size are concerning for metastasis. However, this lesion appears to contain fat density on the noncontrast CT 08/15/2019. -If clinically indicated this could be further evaluated with MRI adrenal protocol with the addition of IV contrast. Dictated by: Aakash Arguello M.D. on 01/30/2020 at 8:29 Approved by: Aakash Arguello M.D. on 01/30/2020 at 9:05
== END ==
PROVIDERS: PCP Internal Medicine; Referring Provider Internal Medicine Hematology & Oncology; Visit Provider Internal Medicine Hematology & Oncology
DX: C61 Malignant neoplasm of prostate (principal); C78.7 Secondary malignant neoplasm of liver and intrahepatic bile duct; C79.72 Secondary malignant neoplasm of left adrenal gland; C34.11 Malignant neoplasm of upper lobe, right bronchus or lung; C34.01 Malignant neoplasm of right main bronchus; C79.51 Secondary malignant neoplasm of bone; C78.5 Secondary malignant neoplasm of large intestine and rectum
CPT/HCPCS: 71260; 74177; Q9967

== ENCOUNTER → 2020-04-02 13:00 | Oncology outpatient (ONC) | payer OTHER, SELFPAY ==
--- NOTE | 2019-08-02 14:14 | P.CONONC_ITS ---
History of Present Illness - Data of Consult Patient: new to practice Consult date: 08/02/19 Requesting Physician: Husam Hagen MD Primary Care Provider: Husam Hagen MD - Consult Narrative Reason for consult: Metastatic lung cancer Narrative: Rylan Yeung is a 64 year old male. He has been drinking whisky for 50 years. He said he drinks like fish. He also admit to heaving smoking since 14 yeas old. He smokes 3 ppd. He has no intention to quit at present. He was referred by Dr. Mike Martinez for evaluation of metastatic lung cancer. Rylan presented with right upper quadrant pain for about 4-5 months. It feels like bruised and bad, 8-10/10 in intensity, constant. Eating does not worsen the pain. No associated nausea or vomiting. He also reports constipation with intermittent diarrhea. He reprots tarry baclk stool at time. But he did not seek medical care. At times, when RUQ pain quits, he notices right rib pain. He denies cough, and denies headache. His weight has been stable. On 07/05/2019, he visited ER for the abdominal pain that was hurting really bad. He underwent CT chest, abdomen and pelvis that showed a 1.8 cm lobulated/spiculated mass in the right upper lobe, a 1.6 cm diameter right hilar lymph node, a 5 mm indeterminate hepatic hypodensity in the anterior segment of the right hepatic lobe, a 3.7 x 4.3 cm mass just below that of left adrenal gland, thickening of the distal sigmoid colon and rectum, enlarged prostate, and sclerotic appearance of the posterior right ninth rib with associated soft tissue mass, mild expansile appearance of the right 10th rib. Liver and spleen were reportedly normal. He said he also has history of prostate cancer. It was diagnosed probably about 3-4 years ago. He said he did not have surgery and instead he was treated with radiation for a couple of days. No records yet available for review today CC: Colleen Balbuena MD Patient reports pain?: Yes - Pain Details Pain location: mid abdomen Pain Intensity: 8 (8-10) Pain Scale Used: Numeric (1 - 10) Pain Frequency: Constant Pain Description: Burning Pain referral/management: Self-management Home Medications and Allergies Home Medications Medication Instructions Recorded Confirmed Type ibuprofen 400 mg PO Q8H PRN 08/02/19 08/02/19 History oxycodone-acetaminophen 1 tab PO Q8H PRN #60 tab 08/02/19 Rx Allergies Allergy/AdvReac Type Severity Reaction Status Date / Time No Known Drug Allergies Allergy Verified 08/02/19 10:33 Medical History - Medical, Surgical, Family History Medical History: Medical History (Last Updated 08/02/19 @ 18:17 by Colleen Balbuena MD) Alcohol abuse BPH loc w urin obs/LUTS Closed left tibial fracture Current smoker Diverticula, colon Intermittent epigastric abdominal pain Liver metastases Lung cancer Onset Date: ~06/2019 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4 F 08/02/19 14:19 Pulse 63 08/02/19 14:19 Resp 20 08/02/19 14:19 BP 162/96 H 08/02/19 14:19 Pulse Ox 96 08/02/19 14:19 Narrative: ECOG 1 Gen: WDWN, NAD, cooperative, here by himself HEENT: NCAT, EOMI, PERLLA, anicteric Neck: supple, no palpable thyromegaly, no palpable mass or lymphadenopathy Lungs: decreased BS, no wheezes Cardiovasc: RRR, S1 and S2 normal, no MRG. No LE pitting edema Abdomen: soft, mild mid abdominal tenderness, no rebound, no palpable organomegaly Ext: no pitting edema. Lymphatic: no palpable nodes in the neck, axila or groins bilaterally Neuro: AOx3, nonfocal Psych: appropriate mood and affect. Results - Labs Reviewed Assessment and Plan (1) Lung cancer Overview: 64-year-old gentleman with lifelong history of heavy smoking and alcohol abuse was recently found to have right upper lung spiculated nodule with right hilar enlarged lymph node as well as imaging evidence of metastasis to ribs, left adrenal gland, possibly liver in Jun 2019. Assessment: I explained to the patient that the above findings are consistent with primary lung cancer with metastasis. I explained to him that first of all we need to find out what type of cancer we ere dealing with. I showed him the CT scan results and the images. The right upper lung nodule is in close proximity to the right upper bronchus and the right hilar lymph node. I think it is going to be amenable to bronchoscopy with biopsy. In my opinion that CT- guided biopsy probably will be difficult given the deep location of the pulmonary nodule. I would recommend that he see our thoracic surgeon for further evaluation of tissue diagnosis. Once we know the tissue diagnosis, I will be able to talk with him about possible treatments options. Patient said that he does not want to get chemotherapy. 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 Patient voiced understanding. Plan: Referral to thoracic surgery for consideration of bronchoscopy with biopsy. RTC after biopsy. (2) Liver metastases See lung cancer (3) Metastasis to adrenal gland See lung cancer (4) Metastasis to bone See lung cancer (5) Intermittent epigastric abdominal pain Patient has significant epigastric pain. As a matter of fact this is the main reason patient has been seeking medical attention. He denies any vomiting interestingly. However patient has significant tarry stool history. Patient has significant alcohol abuse. On the CT scan, no clear evidence of cirrhosis or splenomegaly. I talked with the patient that I am suspicious patient may have of pathology in the upper gastrointestinal tract including possibly gastric ulcer, or malignancy. I talked with the patient that it will be important for him to get a upper endoscopy to evaluate the potential pathology. In addition, patient has thickened rectum on CT scan. He admitted to have in mid and abnormal bowel movement. Therefore I think a colonoscopy is also indicated. Patient voiced understanding. Plan: Surgical referal for EGD/C-scope (6) Tarry stool See Intermittent Epigastric Pain above. (7) Abnormal bowel movement See Intermittent Epigastric Pain above (8) Prostate cancer Patient today also reported history of prostate cancer. I will request the medical records.
[2019-08-02 14:19] VITALS: BP 162/96; PULSE 63; RESP 20; TEMP 36.9; O2SAT 96
--- NOTE | 2019-08-02 14:44 | ONC.MSW ---
Description: New Pt F/F Visit Activity: Met with pt to introduce myself in person, offer services card, and continue to assess concerns/needs. Pt [place] alone [place] with his dog and cat. He shared that he does have a few close friends that check in on him every day, however he spends most of his time alone on his boat. He is now established with Dr. Hagen for his PCP, who saw him for the first time today. Pt's main concerns may be financial, if he is prescribed a drug that has a large out of pocket, and who will take care of his dog when he dies. [employer] provided support and counseling, as well as reassured him that we can work together to find resources that he can later consider for re-homing his beloved pet, should something happen to him. No further immediate needs identified at this time. Will continue to monitor as his treatment plan unfolds.
--- NOTE | 2019-08-06 11:38 | ONC.SCHED ---
Spoke with Patricia [facility]. She will get this case before Dr. Estrada and call me back.
--- NOTE | 2019-08-06 11:55 | ONC.SCHED ---
Faxed referral to [facility] Thoracic Surgery for possible bronch + bx.
--- NOTE | 2019-08-06 15:54 | ONC.SCHED ---
Faxed order for PET/CT
--- NOTE | 2019-08-08 11:29 | ONC.SCHED ---
Per [facility] Thoracic Surgery: Dr Chowdhury is out until 08/20. There is no one else who can see him. Patient is scheduled for consult on 08/21/2019.
--- NOTE | 2019-08-09 12:07 | ONC.SCHED ---
Spoke with patient regarding PET/CT. He is going to call [facility] to get scheduled, hopefully, for the 8th.
--- NOTE | 2019-08-09 12:10 | ONC.SCHED ---
Per Kassandra @ [facility]: Dr Estrada consulted with Dr. Monroe. Kassandra is going to get an urgent message to Dr. Monroe today to have her call to talk with Dr. Balbuena.
--- NOTE | 2019-08-09 12:24 | ONC.SCHED ---
PET/CT is scheduled for 08/15/19 at [facility]
--- NOTE | 2019-08-09 13:36 | ONC.SCHED ---
Per Dr. Monroe, due to coronavirus concerns and limited surgical cases currently, scope will be delayed 4-6 weeks. She recommends patient discontinue use of nsaids and start on double-dose PPI in the meantime. Per Dr. Balbuena, he will discuss with patient @ 08/15 visit.
[2019-08-15 13:50] LABS: Add Manual Diff / Slide Review NO; Basophils Absolute Auto 100 /uL (0-100); Basophils Percent Auto 0.9 % (0-2); Eosinophils Absolute Auto 200 /uL (0-450); Eosinophils Percent Auto 2.1 % (2-4); Hematocrit 47.5 % (41-53); Hemoglobin 16.4 g/dL (13.5-17.5); Lymphocytes Absolute Auto 1400 /uL (1100-4500); Lymphocytes Percent Auto 19.5 % (25-40); Mean Corpuscular HGB Conc 34.5 % (30-36); Mean Corpuscular Hemoglobin 31.7 PG (26-34); Mean Corpuscular Volume 91.7 fL (80-100); Monocytes Absolute Auto 700 /uL (0-900); Monocytes Percent Auto 9.9 % (3-14); Neutrophils Absolute Auto 5000 /uL (1500-7000); Neutrophils Percent Auto 67.6 % (50-75); Platelet Count 204 X10^3/uL (150-400); Red Blood Cell Count 5.18 X10^6/uL (4.5-5.9); Red Cell Distribution Width 14.7 % (11.6-14.8); White Blood Cell Count 7.4 X10^3/uL (4.5-11.0)
[2019-08-15 14:02] LABS: Alanine Aminotransferase 14 IU/L (<50); Albumin 4.4 g/dL (3.5-5.0); Albumin Globulin Ratio 1.6 (1.0-2.8); Alkaline Phosphatase 54 U/L (38-126); Aspartate Aminotransferase 25 IU/L (17-59); BUN Creatinine Ratio 10.8 (6-22); Bilirubin Total 0.9 mg/dL (0.2-1.3); Blood Urea Nitrogen 10 mg/dL (9-20); Calcium 9.3 mg/dL (8.4-10.2); Carbon Dioxide 29 mmol/L (22-32); Chloride 103 mmol/L (98-107); Estimated Glomerular Filt Rate > 60.0 mL/min (>60); Globulin 2.8 g/dL (1.7-4.1); Glucose 99 mg/dL (80-110); Potassium 4.2 mmol/L (3.4-5.1); Sodium 138 mmol/L (137-145); Total Protein 7.2 g/dL (6.3-8.2)
[2019-08-15 14:32] LABS: Carcinoembryonic Antigen 12.1 ng/mL (0.1-3.0)
[2019-08-15 14:34] LABS: HEMOLYSIS < 15 (0-50); Prostate Specific Antigen 29.6 ng/mL (0.10-4.00)
[2019-08-16 07:17] LABS: Alpha Fetoprotein 2.4 ng/mL (0.0-8.3)
[2019-08-16 13:38] VITALS: TEMP 36.9
[2019-08-16 13:39] VITALS: BP 123/80; PULSE 70; RESP 18; TEMP 36.8; O2SAT 97
--- NOTE | 2019-08-16 13:54 | ONC.PN ---
PN -Subjective Interval history: ID/CC: 64 year old with known prostate cancer, now is found to have right lung nodules and rectum mass HPI Rylan Yeung is a 64 year old male. He has been drinking whisky for 50 years. He said he drinks like fish. He also admit to heaving smoking since 14 yeas old. He smokes 3 ppd. He has no intention to quit at present Mr. Yeung was diagnosed with GS 4+4 prostate cancer by TRUS prostate biopsy on 07/24/2015. His initial presentation was urge incontinence and penile nodule. Workup including CT chest on that showed a small right lung nodules and follow up CT in 12 months recommended. On 08/27/2015, he was started on Lupron 30 mg after taking casodex for 4-6 weeks. Bone scan was suspicious for possible metastasis. Follow up CT on 11/29/2016 showed mild interval increase in size of heterogeneous pre-sacral lobulated mass, likely high pelvic adenopathy, stable left adrenal mass measuring 3.4 x 3.7 cm, mild sigmoid colon wall thickening in the region of the presacral mass, and relatively stable areas of sclerosis within the T12 and L2 vertebral bodies. Stable sclerosis of the posterior right ninth rib. No clearly new sclerotic lesions are seen. Bone scan 11/29/2016 showed multiple areas of activity suspicious for metastatic disease.The right intertrochanteric region of activity/metastases has increased significantly in size. He then underwent radiation to the sarcum/right proximal femur from 12/15/2016 to 12/21/2016 at 500 cGy per fraction for 5 fractions to a total of 2500 cGy. He was started on Abiraterone + prednisone started 12/07/16. Then in 06/2017, he was started on Xtandi. His recent treatment his prostate cancer is not clear. Apparent, it has been no hold after he moved to [facility]. About end of 2018 (4-5 months ago), he developed right upper quadrant abdominal pain, that felt like bruised and bad, 8-10/10 in intensity, and constant. Eating does not worsen the pain. No associated nausea or vomiting. He also reports constipation with intermittent diarrhea. He reports tarry black stool at the time. But he did not seek medical care. At times, when RUQ pain quits, he notices right rib pain. He denies cough, and denies headache. His weight has been stable. On 07/05/2019, he visited ER for the abdominal pain that was hurting really bad. He underwent CT chest, abdomen and pelvis that showed a 1.8 cm lobulated/spiculated mass in the right upper lobe, a 1.6 cm diameter right hilar lymph node, a 5 mm indeterminate hepatic hypodensity in the anterior segment of the right hepatic lobe, a 3.7 x 4.3 cm mass just below that of left adrenal gland, thickening of the distal sigmoid colon and rectum, enlarged prostate, and sclerotic appearance of the posterior right ninth rib with associated soft tissue mass, mild expansile appearance of the right 10th rib. Liver and spleen were reportedly normal. Interval History Since his previous visit, patient continues to complain right upper abdominal pain. In addition he continues to complain abnormal bowel movement with constipation and diarrhea on and off. Patient denies any fever or chills. He has not nausea vomiting. On 08/15/2019, patient underwent PET scan. The PET scan showed lucent focus within the left middle cranial fossa which could be further assessed with brain MRI with and without intravenous contrast, malignant appearing uptake within the right upper lobe and right hilum, metastasis to the right ninth rib, hypermetabolic foci within the rectum and the subtending inferior mesenteric vein, left adrenal adenoma and infrarenal abdominal aortic ectasia. - Patient Self-Reported Symptoms SR Constitution: Weight loss/gain SR ears, nose, mouth, throat issues: Ears ringing SR Gastrointestinal issues: Poor or no appetite - Additional ROS All systems PM: reviewed and no additional remarkable complaints except as stated (Those mentioned in HPI, Interval History and SR above.) Home Medications and Allergies Home Medications Medication Instructions Recorded Confirmed Type ibuprofen 400 mg PO Q8H PRN 08/02/19 08/02/19 History oxycodone-acetaminophen 1 tab PO Q8H PRN #60 tab 08/02/19 Rx omeprazole 40 mg capsule,delayed 40 mg PO BID #60 cap 08/10/19 08/16/19 Rx release bicalutamide [Casodex] 50 mg PO DAILY #30 tab 08/16/19 Rx Allergies Allergy/AdvReac Type Severity Reaction Status Date / Time No Known Drug Allergies Allergy Verified 08/02/19 10:33 Exam Vital signs: Last Vital Signs Temp 98.3 F 08/16/19 13:39 Pulse 70 08/16/19 13:39 Resp 18 08/16/19 13:39 BP 123/80 08/16/19 13:39 Pulse Ox 97 08/16/19 13:39 Narrative: ECOG 1 Vitals above reviewed Constitutional: WDWN, well nourished, and well groomed. NAD. Pleasant and cooperative. HEENT: NCAT, EOMI, PERRLA, anicteric sclera. Neck: Supple and symmetrical. No palpable thyromegaly or lymphadenopathy. No palpable masses. Respiratory: No use of accessory muscles, no wheezes. Cardiovascular: RRR, S1 and S2 normal, no M/G/R. No edema of lower extremities. Abdomen: Soft, mild mid abdominal tenderness, no palpable hepatosplenomegaly, no hernia. Lymphatic: no palpable palpable lymph nodes in the neck, axillae, or groins. Musculoskeletal: normal gait and station Skin: no rashes, lesions, or ulcers, no induration, or sub cutaneous nodules. Neurological: AOx3, CN II-XII grossly intact. No focal motor or sensory deficit. Psychiatric: AOx3, normal memory (recent and remote), normal mood and affect. Results - Labs Laboratory Last Values WBC 7.4 X10^3/uL (4.5-11.0) 08/15/19 13:39 RBC 5.18 X10^6/uL (4.5-5.9) 08/15/19 13:39 Hgb 16.4 g/dL (13.5-17.5) 08/15/19 13:39 Hct 47.5 % (41-53) 08/15/19 13:39 MCV 91.7 fL (80-100) 08/15/19 13:39 MCH 31.7 PG (26-34) 08/15/19 13:39 MCHC 34.5 % (30-36) 08/15/19 13:39 RDW 14.7 % (11.6-14.8) 08/15/19 13:39 Plt Count 204 X10^3/uL (150-400) 08/15/19 13:39 Neut % (Auto) 67.6 % (50-75) 08/15/19 13:39 Lymph % (Auto) 19.5 % (25-40) L 08/15/19 13:39 [place] % (Auto) 9.9 % (3-14) 08/15/19 13:39 Eos % (Auto) 2.1 % (2-4) 08/15/19 13:39 Baso % (Auto) 0.9 % (0-2) 08/15/19 13:39 Neut # (Auto) 5000 /uL (9556-1093) 08/15/19 13:39 Lymph # (Auto) 1400 /uL (0976-0716) 08/15/19 13:39 [place] # (Auto) 700 /uL (0-900) 08/15/19 13:39 Eos # (Auto) 200 /uL (0-450) 08/15/19 13:39 Baso # (Auto) 100 /uL (0-100) 08/15/19 13:39 Sodium 138 mmol/L (137-145) 08/15/19 13:39 Potassium 4.2 mmol/L (3.4-5.1) 08/15/19 13:39 Chloride 103 mmol/L (98-107) 08/15/19 13:39 Carbon Dioxide 29 mmol/L (22-32) 08/15/19 13:39 BUN 10 mg/dL (9-20) 08/15/19 13:39 Creatinine 0.93 mg/dL (0.66-1.25) 08/15/19 13:39 Estimated GFR > 60.0 mL/min (>60) 08/15/19 13:39 BUN/Creatinine Ratio 10.8 (6-22) 08/15/19 13:39 Glucose 99 mg/dL (80-110) 08/15/19 13:39 Calcium 9.3 mg/dL (8.4-10.2) 08/15/19 13:39 Total Bilirubin 0.9 mg/dL (0.2-1.3) 08/15/19 13:39 AST 25 IU/L (17-59) 08/15/19 13:39 ALT 14 IU/L (<50) 08/15/19 13:39 Alkaline Phosphatase 54 U/L (38-126) 08/15/19 13:39 Total Protein 7.2 g/dL (6.3-8.2) 08/15/19 13:39 Albumin 4.4 g/dL (3.5-5.0) 08/15/19 13:39 Globulin 2.8 g/dL (1.7-4.1) 08/15/19 13:39 Albumin/Globulin Ratio 1.6 (1.0-2.8) 08/15/19 13:39 Alpha Fetoprotein 2.4 ng/mL (0.0-8.3) 08/15/19 13:39 Carcinoembryonic Ag 12.1 ng/mL (0.1-3.0) H 08/15/19 13:39 Prostate Specific Ag 29.6 ng/mL (0.10-4.00) H 08/15/19 13:39 Assessment and Plan (1) Lung cancer Overview: 64-year-old gentleman with lifelong history of heavy smoking and alcohol abuse was recently found to have right upper lung spiculated nodule with right hilar enlarged lymph node as well as imaging evidence of metastasis to ribs, left adrenal gland, possibly liver in Jun 2019. Assessment: I reviewed the PET scan results with the patient. I showed the patient the PET scan on the computer screen. I pointed out to the patient that the pulmonary nodules are hypermetabolic and highly suspicious for primary lung cancer. Patient has already set up appointment to see Dr. Chowdhury next week. Plan: Follow up with Dr. Chowdhury as scheduled next week (2) Prostate cancer Overview: GS 4+4 prostate cancer by TRUS prostate biopsy on 07/24/2015. Initial imaging studies says that for possible bone metastasis. Throughout the years patient has received Lupron, Casodex, abiraterone, and Xtandi, but not consistently. He also had radiation therapy in 2017 to the pre-sacral while and right proximal femur. Assessment Today I reviewed the PET scan results with the patient and also reviewed laboratory test results. Patient's PSA level is elevated. I recommended resume the androgen deprivation therapy while continuing workup for other medical problems. Patient voiced understanding. I will start the casodex toda and initiate lupron next week Plan: Casodex 50 mg daily x 30 days starting today Lupron 22.5 mg im q3m, starting in one week (3) Intermittent epigastric abdominal pain Overview: Patient has significant epigastric pain since end of 2018, and is the main reason patient has been seeking medical attention. He also has other gastrointestinal signs and symptoms including black stool, diarrhea, and constipation, and elevated CEA of 12.1. Assessment: Patient has a cluster of symptoms including abdominal pain, abnormal bowel movement including black stool, diarrhea and constipation. Lab showed elevated CEA level. I reviewed the PET/CT scan results with the patient. There is abnormal hypermetabolic activity in the rectum area and in the pelviS. The clinical presentation is highly suspicious for possible malignancy or metastasis from other malignancy, potentially, lung cancer or his known prostate cancer. Recommended the upper and lower endoscopy. 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
--- NOTE | 2019-08-16 15:57 | ONC.MSW ---
Description: Check-in, Coping Support Activity: DAYCARE ASSISTANT met with pt to offer emotional and coping support. He's expressing feeling very hopeless and sad, fearing for who will care for his beloved dog when he dies, not knowing what lies ahead, and struggling with a new vulnerability that he hasn't felt before. He c/o significant fatigue and weakness, is unable to be as active as he normally is. DAYCARE ASSISTANT discussed a plan to try to locate resources for [place] resc[facility], and will continue to check-in with him as we move forward. Plan to also address advanced directives next visit.
--- NOTE | 2019-08-20 13:32 | ONC.SCHED ---
Submitted prior auth for Lupron as urgent. [facility] advantage plan does not require prior auth for a referral to specialty. per phone call 08/20/19 time 1:33 PM.
[2019-08-21 13:36] VITALS: BP 138/72; PULSE 66; RESP 18; TEMP 36.7; O2SAT 97
[2019-08-21] MEDS: LEUPROLIDE DEPOT [ELIGARD] 22.5 MG SYR SUBCUT (13:54)
[2019-09-03 12:58] VITALS: BP 124/78; PULSE 73; RESP 16; O2SAT 98
--- NOTE | 2019-09-03 13:04 | P.PNONC_ITS ---
PN -Subjective Interval history: ID/CC: 64 year old with known prostate cancer, now is found to have right lung nodules and rectum mass HPI Rylan Yeung is a 64 year old male. He has been drinking whisky for 50 years. He said he drinks like fish. He also admit to heaving smoking since 14 yeas old. He smokes 3 ppd. He has no intention to quit at present Mr. Yeung was diagnosed with GS 4+4 prostate cancer by TRUS prostate biopsy on 07/24/2015. His initial presentation was urge incontinence and penile nodule. Workup including CT chest on that showed a small right lung nodules and follow up CT in 12 months recommended. On 08/27/2015, he was started on Lupron 30 mg after taking casodex for 4-6 weeks. Bone scan was suspicious for possible metastasis. Follow up CT on 11/29/2016 showed mild interval increase in size of heterogeneous pre-sacral lobulated mass, likely high pelvic adenopathy, stable left adrenal mass measuring 3.4 x 3.7 cm, mild sigmoid colon wall thickening in the region of the presacral mass, and relatively stable areas of sclerosis within the T12 and L2 vertebral bodies. Stable sclerosis of the p osterior right ninth rib. No clearly new sclerotic lesions are seen. Bone scan 11/29/2016 showed multiple areas of activity suspicious for metastatic disease.The right intertrochanteric region of activity/metastases has increased significantly in size. He then underwent radiation to the sarcum/right proximal femur from 12/15/2016 to 12/21/2016 at 500 cGy per fraction for 5 fractions to a total of 2500 cGy. He was started on Abiraterone + prednisone started 12/07/16. Then in 06/2017, he was started on Xtandi. His recent treatment his prostate cancer is not clear. Apparent, it has been no hold after he moved to [facility]. About end of 2018 (4-5 months ago), he developed right upper quadrant abdominal pain, that felt like bruised and bad, 8-10/10 in intensity, and constant. Ea ting does not worsen the pain. No associated nausea or vomiting. He also reports constipation with intermittent diarrhea. He reports tarry black stool at the time. But he did not seek medical care. At times, when RUQ pain quits, he notices right rib pain. He denies cough, and denies headache. His weight has been stable. On 07/05/2019, he visited ER for the abdominal pain that was hurting really bad. He underwent CT chest, abdomen and pelvis that showed a 1.8 cm lobulated/spiculated mass in the right upper lobe, a 1.6 cm diameter right hilar lymph node, a 5 mm indeterminate hepatic hypodensity in the anterior segment of the right hepatic lobe, a 3.7 x 4.3 cm mass just below that of left adrenal gland, thickening of the distal sigmoid colon and rectum, enlarged prostate, and sclerotic appearance of the posterior right ninth rib with associated soft tissue mass, mild expansile appearance of the right 10th rib. Liver and spleen were reportedly normal. On 08/15/2019, patient underwent PET scan. The PET scan showed lucent focus within the left middle cranial fossa which could be further assessed with brain MRI with and without intravenous contrast, malignant appearing uptake within the right upper lobe and right hilum, metastasis to the right ninth rib, hypermetabolic foci within the rectum and the subtending inferior mesenteric vein, left adrenal adenoma and infrarenal abdominal aortic ectasia. Interval History On 08/21/2019, I started the patient on androgen deprivation therapy with Lupron 22.5 mg subcutaneous every 3 months. Meanwhile patient also started taking casodex 50 mg once a day with plan for about a month to prevent PSA flare. Patient said that he has tolerated well. Since his previous visit, Dr. Estrada performed colonoscopy. Biopsy from a polyp at 25 cm was negative for dysplasia or malignancy. However biopsy from polyp at 15 cm showed colonic mucosa with metastatic prostate adenocarcinoma. On 08/21/2019, Dr. Avelino Chowdhury did a telephone encounter. Dr. batista thought that the lung lesion did appear to be amenable to bronchoscopic biopsy, but was not able to perform elective bronchoscopy due to the COVID-19 risk of aerosolization. As a result Dr. Chowdhury recommended CT-guided biopsy of the right posterior chest wall lesion. On 08/31/2019, patient underwent CT biopsy of right ninth rib lesion by Dr. Zechariah Bowles. The final pathology is still pending at the time of today's encounter. - Patient Self-Reported Symptoms SR Constitution: Weight loss/gain SR ears, nose, mouth, throat issues: Ears ringing SR Gastrointestinal issues: Poor or no appetite - Additional ROS All systems PM: reviewed and no additional remarkable complaints except as stated (those mentioned in HPI, interval history and SR above.) Home Medications and Allergies Home Medications Medication Instructions Recorded Confirmed Type omeprazole 40 mg capsule,delayed 40 mg PO BID #60 cap 08/10/19 08/29/19 Rx release bicalutamide [Casodex] 50 mg PO DAILY #30 tab 08/16/19 08/29/19 Rx lisinopril 20 mg PO DAILY #30 tab 09/03/19 Rx Allergies Allergy/AdvReac Type Severity Reaction Status Date / Time No Known Drug Allergies Allergy Verified 08/29/19 13:04 Exam Vital signs: Vital Signs Pulse Resp BP Pulse Ox 09/03/19 12:58 73 16 124/78 98 Intake and Output 09/02/19 09/03/19 09/03/19 23:59 07:59 15:59 Other: Weight 91 kg Patient Weight 09/03/19 23:59 Weight 91 kg Narrative: ECOG 1 Vitals above reviewed Constitutional: WDWN, well nourished, and well groomed. NAD. Pleasant and cooperative. HEENT: NCAT, EOMI, PERRLA, anicteric sclera. Neck: Supple and symmetrical. No palpable thyromegaly or lymphadenopathy. No palpable masses. Respiratory: No use of accessory muscles, no wheezes. Cardiovascular: RRR, S1 and S2 normal, no M/G/R. No edema of lower extremities. Abdomen: Soft, mild mid abdominal tenderness, no palpable hepatosplenomegaly, no hernia. Lymphatic: no palpable palpable lymph nodes in the neck, axillae, or groins. Musculoskeletal: normal gait and station Skin: no rashes, lesions, or ulcers, no induration, or sub cutaneous nodules. Neurological: AOx3, CN II-XII grossly intact. No focal motor or sensory deficit. Psychiatric: AOx3, normal memory (recent and remote), normal mood and affect. Results - Labs Laboratory Last Values WBC 7.4 X10^3/uL (4.5-11.0) 08/15/19 13:39 RBC 5.18 X10^6/uL (4.5-5.9) 08/15/19 13:39 Hgb 16.4 g/dL (13.5-17.5) 08/15/19 13:39 Hct 47.5 % (41-53) 08/15/19 13:39 MCV 91.7 fL (80-100) 08/15/19 13:39 MCH 31.7 PG (26-34) 08/15/19 13:39 MCHC 34.5 % (30-36) 08/15/19 13:39 RDW 14.7 % (11.6-14.8) 08/15/19 13:39 Plt Count 204 X10^3/uL (150-400) 08/15/19 13:39 Neut % (Auto) 67.6 % (50-75) 08/15/19 13:39 Lymph % (Auto) 19.5 % (25-40) L 08/15/19 13:39 [place] % (Auto) 9.9 % (3-14) 08/15/19 13:39 Eos % (Auto) 2.1 % (2-4) 08/15/19 13:39 Baso % (Auto) 0.9 % (0-2) 08/15/19 13:39 Neut # (Auto) 5000 /uL (1171-4485) 08/15/19 13:39 Lymph # (Auto) 1400 /uL (5112-0103) 08/15/19 13:39 [place] # (Auto) 700 /uL (0-900) 08/15/19 13:39 Eos # (Auto) 200 /uL (0-450) 08/15/19 13:39 Baso # (Auto) 100 /uL (0-100) 08/15/19 13:39 Sodium 138 mmol/L (137-145) 08/15/19 13:39 Potassium 4.2 mmol/L (3.4-5.1) 08/15/19 13:39 Chloride 103 mmol/L (98-107) 08/15/19 13:39 Carbon Dioxide 29 mmol/L (22-32) 08/15/19 13:39 BUN 10 mg/dL (9-20) 08/15/19 13:39 Creatinine 0.93 mg/dL (0.66-1.25) 08/15/19 13:39 Estimated GFR > 60.0 mL/min (>60) 08/15/19 13:39 BUN/Creatinine Ratio 10.8 (6-22) 08/15/19 13:39 Glucose 99 mg/dL (80-110) 08/15/19 13:39 Calcium 9.3 mg/dL (8.4-10.2) 08/15/19 13:39 Total Bilirubin 0.9 mg/dL (0.2-1.3) 08/15/19 13:39 AST 25 IU/L (17-59) 08/15/19 13:39 ALT 14 IU/L (<50) 08/15/19 13:39 Alkaline Phosphatase 54 U/L (38-126) 08/15/19 13:39 Total Protein 7.2 g/dL (6.3-8.2) 08/15/19 13:39 Albumin 4.4 g/dL (3.5-5.0) 08/15/19 13:39 Globulin 2.8 g/dL (1.7-4.1) 08/15/19 13:39 Albumin/Globulin Ratio 1.6 (1.0-2.8) 08/15/19 13:39 Alpha Fetoprotein 2.4 ng/mL (0.0-8.3) 08/15/19 13:39 Carcinoembryonic Ag 12.1 ng/mL (0.1-3.0) H 08/15/19 13:39 Prostate Specific Ag 29.6 ng/mL (0.10-4.00) H 08/15/19 13:39 Assessment and Plan (1) Lung cancer Overview: 64-year-old gentleman with lifelong history of heavy smoking and alcohol abuse. On 07/05/2019, he was found to have a 1.8 cm lobulated/spiculated mass in the right upper lobe and a 1.6 cm diameter right hilar lymph node on CT scan during a ER visit for abdominal pain. The CT also showed 5 mm indeterminate hepatic hypodensity in the anterior segment of the right hepatic lobe, a 3.7 x 4.3 cm mass just below that of left adrenal gland, thickening of the distal sigmoid colon and rectum, enlarged prostate, and sclerotic appearance of the posterior right ninth rib with associated soft tissue mass, mild expansile appearance of the right 10th rib. Liver and spleen were reportedly normal. On 08/15/2019, PET scan showed lucent focus within the left middle cranial fossa, malignant appearing uptake within the right upper lobe and right hilum, metastasis to the right ninth rib, hypermetabolic foci within the rectum and the subtending inferior mesenteric vein, left adrenal adenoma and infrarenal abdominal aortic ectasia. Assessment: I discussed with the patient about the lung lesions. Based on his previous smoking history, it is highly suspicious for primary lung cancer. However due to current COVID-19 pandemic, it seems to me that elective bronchoscopy with biopsy is temporarily on hold. Patient therefore was referred for a CT-guided biopsy of the right posterior ninth rib which was performed on August 30. The final pathology still pending. I explained to the patient that if the pathology shows metastatic lung cancer, then the lung lesion most likely is a primary lesion. However if the pathology shows prostate cancer, in that situation, we still do not know the identity of the primary lung lesion. Then patient still will need bronchoscopy with biopsy. Patient voiced understanding. Plan: Pending pathology report RTC in 1 week to review. (2) Prostate cancer Overview: GS 4+4 prostate cancer by TRUS prostate biopsy on 07/24/2015. Initial imaging studies says that for possible bone metastasis. Throughout the years patient has received Lupron, Casodex, abiraterone, and Xtandi, but not consistently. He also had radiation therapy in 2017 to the pre-sacral while and right proximal femur. Assessment Quite unexpectedly, the colonoscopy with biopsy showed colonic metastasis of the prostate cancer. Explained to the patient that for metastatic prostate cancer, the treatment is androgen deprivation therapy. Patient has just resumed the ADT on 08/21/2019. I talked with him that I will monitor the PSA response cl osely and will decide about if other treatment options are available including possibly chemotherapy. Patient voiced understanding and agreement. Plan: Continue and complete Casodex 50 mg daily x 30 days Continue Lupron 22.5 mg im q3m, next dose in 3 months (3) Intermittent epigastric abdominal pain Overview: Patient has significant epigastric pain since end of 2019, and is the main reason patient has been seeking medical attention. He also has other gastrointestinal signs and symptoms including black stool, diarrhea, and constipation, and elevated CEA of 12.1. Assessment: Quite unexpectedly, the biopsy of the lesion from 15 cm from the anus showed metastatic prostate cancer. I talked with the patient the treatment is androgen deprivation therapy. Plan: See Prostate Cancer for more discussion. 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
[2019-09-13 14:52] VITALS: BP 140/84; PULSE 69; RESP 16; TEMP 36.9; O2SAT 98
--- NOTE | 2019-09-13 14:56 | P.PNONC_ITS ---
PN -Subjective Interval history: ID/CC: 64 year old with known prostate cancer, and small cell lung cancer HPI Rylan Yeung is a 64 year old male. He has been drinking whisky for 50 years. He said he drinks like fish. He also admit to heaving smoking since 14 yeas old. He smokes 3 ppd. He has no intention to quit at present Mr. Yeung was diagnosed with GS 4+4 prostate cancer by TRUS prostate biopsy on 07/24/2015. His initial presentation was urge incontinence and penile nodule. Workup including CT chest on that showed a small right lung nodules and follow up CT in 12 months recommended. On 08/27/2015, he was started on Lupron 30 mg after taking casodex for 4-6 weeks. Bone scan was suspicious for possible metastasis. Follow up CT on 11/29/2016 showed mild interval increase in size of heterogeneous pre-sacral lobulated mass, likely high pelvic adenopathy, stable left adrenal mass measuring 3.4 x 3.7 cm, mild sigmoid colon wall thickening in the region of the presacral mass, and relatively stable areas of sclerosis within the T12 and L2 vertebral bodies. Stable sclerosis of the posterior right ninth rib. No clearly new sclerotic lesions are seen. Bone scan 11/29/2016 showed multiple areas of activity suspicious for metastatic disease.The right intertrochanteric region of activity/metastases has increased significantly in size. He then underwent radiation to the sarcum/right proximal femur from 12/15/2016 to 12/21/2016 at 500 cGy per fraction for 5 fractions to a total of 2500 cGy. He was started on Abiraterone + prednisone started 12/07/16. Then in 06/2017, he was started on Xtandi. His recent treatment his prostate cancer is not clear. Apparent, it has been no hold after he moved to [facility]. About end of 2018 (4-5 months ago), he developed right upper quadrant abdominal pain, that felt like bruised and bad, 8-10/10 in intensity, and constant. Eating does not worsen the pain. No associated nausea or vomiting. He also reports constipation with intermittent diarrhea. He reports tarry black stool at the time. But he did not seek medical care. At times, when RUQ pain quits, he notices right rib pain. He denies cough, and denies headache. His weight has been stable. On 07/05/2019, he visited ER for the abdominal pain that was hurting really bad. He underwent CT chest, abdomen and pelvis that showed a 1.8 cm lobulated/spiculated mass in the right upper lobe, a 1.6 cm diameter right hilar lymph node, a 5 mm indeterminate hepatic hypodensity in the anterior segment of the right hepatic lobe, a 3.7 x 4.3 cm mass just below that of left adrenal gland, thickening of the distal sigmoid colon and rectum, enlarged prostate, and sclerotic appearance of the posterior right ninth rib with associated soft tissue mass, mild expansile appearance of the right 10th rib. Liver and spleen were reportedly normal. On 08/15/2019, patient underwent PET scan. The PET scan showed lucent focus within the left middle cranial fossa which could be further assessed with brain MRI with and without intravenous contrast, malignant appearing uptake within the right upper lobe and right hilum, metastasis to the right ninth rib, hypermetabolic foci within the rectum and the subtending inferior mesenteric vein, left adrenal adenoma and infrarenal abdominal aortic ectasia. On 08/21/2019, I started the patient on androgen deprivation therapy with Lupron 22.5 mg subcutaneous every 3 months. Meanwhile patient also started taking casodex 50 mg once a day with plan for about a month to prevent PSA flare. Patient said that he has tolerated well. Since his previous visit, Dr. Estrada performed colonoscopy. Biopsy from a polyp at 25 cm was negative for dysplasia or malignancy. However biopsy from polyp at 15 cm showed colonic mucosa with metastatic prostate adenocarcinoma. On 08/21/2019, Dr. Avelino Chowdhury did a telephone encounter. Dr. batista thought that the lung lesion did appear to be amenable to bronchoscopic biopsy, but was not able to perform elective bronchoscopy due to the COVID-19 risk of aerosolization. As a result Dr. Chowdhury recommended CT-guided biopsy of the right posterior chest wall lesion. Interval History On 08/31/2019, patient underwent CT biopsy of right ninth rib lesion by Dr. Zechariah Bowles. The final pathology showed small cell lung cancer. Patient presents here today for scheduled follow-up visit to discuss the results. Clinically patient has been constantly complaining rectal discomfort dense secretions. Patient is also complaining lower abdomen discomfort. Patient has known right-sided metastasis but he said the pain is on and off and tolerable. He denies any headache, double vision, blurred vision or chest pain or shortness of breath. Treatment Summary: 1. Lupron, started 08/27/2015 - ? 2. Radiation to sarcum/right proximal femur, 12/15/2016 - 12/21/2016 3. Abiraterone + prednisone, 12/07/16 - ? 4. Xtandi, started in 06/2017 - ? 5. Lupron 22.5 mg q3m, started on 08/21/2019 - - Patient Self-Reported Symptoms SR Constitution: Weight loss/gain SR ears, nose, mouth, throat issues: Ears ringing SR Gastrointestinal issues: Poor or no appetite - Additional ROS All systems PM: reviewed and no additional remarkable complaints except as stated Home Medications and Allergies Home Medications Medication Instructions Recorded Confirmed Type omeprazole 40 mg capsule,delayed 40 mg PO BID #60 cap 08/10/19 09/13/19 Rx release bicalutamide [Casodex] 50 mg PO DAILY #30 tab 08/16/19 09/13/19 Rx lisinopril 20 mg PO DAILY #30 tab 09/03/19 09/13/19 Rx Allergies Allergy/AdvReac Type Severity Reaction Status Date / Time No Known Drug Allergies Allergy Verified 08/29/19 13:04 Exam Vital signs: 09/13/19 17:13 Last Vital Signs Temp 98.4 F 09/13/19 14:52 Pulse 69 09/13/19 14:52 Resp 16 09/13/19 14:52 BP 140/84 09/13/19 14:52 Pulse Ox 98 09/13/19 14:52 Narrative: ECOG 1 Vitals above reviewed Constitutional: WDWN, well nourished, and well groomed. NAD. Pleasant and cooperative. HEENT: NCAT, EOMI, PERRLA, anicteric sclera. Neck: Supple and symmetrical. No palpable thyromegaly or lymphadenopathy. No palpable masses. Respiratory: No use of accessory muscles, no wheezes. Cardiovascular: RRR, S1 and S2 normal, no M/G/R. No edema of lower extremities. Abdomen: Soft, mild mid abdominal tenderness, no palpable hepatosplenomegaly, no hernia. Lymphatic: no palpable palpable lymph nodes in the neck, axillae, or groins. Musculoskeletal: normal gait and station Skin: no rashes, lesions, or ulcers, no induration, or sub cutaneous nodules. Neurological: AOx3, CN II-XII grossly intact. No focal motor or sensory deficit. Psychiatric: AOx3, normal memory (recent and remote), normal mood and affect. Results - Labs Laboratory Last Values WBC 7.4 X10^3/uL (4.5-11.0) 08/15/19 13:39 RBC 5.18 X10^6/uL (4.5-5.9) 08/15/19 13:39 Hgb 16.4 g/dL (13.5-17.5) 08/15/19 13:39 Hct 47.5 % (41-53) 08/15/19 13:39 MCV 91.7 fL (80-100) 08/15/19 13:39 MCH 31.7 PG (26-34) 08/15/19 13:39 MCHC 34.5 % (30-36) 08/15/19 13:39 RDW 14.7 % (11.6-14.8) 08/15/19 13:39 Plt Count 204 X10^3/uL (150-400) 08/15/19 13:39 Neut % (Auto) 67.6 % (50-75) 08/15/19 13:39 Lymph % (Auto) 19.5 % (25-40) L 08/15/19 13:39 Reynolds % (Auto) 9.9 % (3-14) 08/15/19 13:39 Eos % (Auto) 2.1 % (2-4) 08/15/19 13:39 Baso % (Auto) 0.9 % (0-2) 08/15/19 13:39 Neut # (Auto) 5000 /uL (5742-9562) 08/15/19 13:39 Lymph # (Auto) 1400 /uL (0524-9380) 08/15/19 13:39 Reynolds # (Auto) 700 /uL (0-900) 08/15/19 13:39 Eos # (Auto) 200 /uL (0-450) 08/15/19 13:39 Baso # (Auto) 100 /uL (0-100) 08/15/19 13:39 Sodium 138 mmol/L (137-145) 08/15/19 13:39 Potassium 4.2 mmol/L (3.4-5.1) 08/15/19 13:39 Chloride 103 mmol/L (98-107) 08/15/19 13:39 Carbon Dioxide 29 mmol/L (22-32) 08/15/19 13:39 BUN 10 mg/dL (9-20) 08/15/19 13:39 Creatinine 0.93 mg/dL (0.66-1.25) 08/15/19 13:39 Estimated GFR > 60.0 mL/min (>60) 08/15/19 13:39 BUN/Creatinine Ratio 10.8 (6-22) 08/15/19 13:39 Glucose 99 mg/dL (80-110) 08/15/19 13:39 Calcium 9.3 mg/dL (8.4-10.2) 08/15/19 13:39 Total Bilirubin 0.9 mg/dL (0.2-1.3) 08/15/19 13:39 AST 25 IU/L (17-59) 08/15/19 13:39 ALT 14 IU/L (<50) 08/15/19 13:39 Alkaline Phosphatase 54 U/L (38-126) 08/15/19 13:39 Total Protein 7.2 g/dL (6.3-8.2) 08/15/19 13:39 Albumin 4.4 g/dL (3.5-5.0) 08/15/19 13:39 Globulin 2.8 g/dL (1.7-4.1) 08/15/19 13:39 Albumin/Globulin Ratio 1.6 (1.0-2.8) 08/15/19 13:39 Alpha Fetoprotein 2.4 ng/mL (0.0-8.3) 08/15/19 13:39 Carcinoembryonic Ag 12.1 ng/mL (0.1-3.0) H 08/15/19 13:39 Prostate Specific Ag 29.6 ng/mL (0.10-4.00) H 08/15/19 13:39 Assessment and Plan (1) Small cell lung cancer Overview: 64-year-old gentleman with lifelong history of heavy smoking and alcohol abuse. On 07/05/2019, he was found to have a 1.8 cm lobulated/spiculated mass in the right upper lobe and a 1.6 cm diameter right hilar lymph node on CT scan during a ER visit for abdominal pain. The CT also showed 5 mm indeterminate hepatic hypodensity in the anterior segment of the right hepatic lobe, a 3.7 x 4.3 cm mass just below that of left adrenal gland, thickening of the distal sigmoid colon and rectum, enlarged prostate, and sclerotic appearance of the posterior right ninth rib with associated soft tissue mass, mild expansile appearance of the right 10th rib. Liver and spleen were reportedly normal. On 08/15/2019, PET scan showed lucent focus within the left middle cranial fossa, malignant appearing uptake within the right upper lobe and right hilum, metastasis to the right ninth rib, hypermetabolic foci within the rectum and the subtending inferior mesenteric vein, left adrenal adenoma and infrarenal abdominal aortic ectasia. Assessment: Today I first of all talked with the patient about CT-guided biopsy of the right rib. I talked with him that it is small cell lung cancer. I explained to the patient that small-cell lung cancer is one type of aggressive cancer that most likely is due to smoking. Given that the cancer was diagnosed from biopsy of the rib, it indicates that the small cell lung cancer has spread from the primary location of the right lung to other parts of the body, one of them happens to be the rib. Given these metastasis, it is a stage IV or extended small cell lung cancer. For extended small cell lung cancer, it is usually con sidered incurable. The recommended treatment options would include chemo - mmunotherapy. It usually is given once every 3 weeks. However patient has a complicated social situation. He lives [place] a boat and has a dog to take care of. He said he is basically not possible to do of 5 days treatment. I talked with him that we will make adjustments around his schedule as reasonably as can be. I also talked with him about the need for port placement. Patient agreed to proceed with port placement. Talked with him that I will tentatively schedule the chemotherapy to be started within 2 weeks if possible. UCHE Snyder, participated in clinical conversation today. Plan: Referral to surgery for port placement RTC in 2 week for Cis/Etop/Atezo (2) Prostate cancer Overview: GS 4+4 prostate cancer by TRUS prostate biopsy on 07/24/2015. Initial imaging studies says that for possible bone metastasis. Throughout the years patient has received Lupron, Casodex, abiraterone, and Xtandi, but not consistently. He also had radiation therapy in 2017 to the pre-sacral while and right proximal femur. Assessment Quite unexpectedly, the colonoscopy with biopsy showed colonic metastasis of the prostate cancer. Explained to the patient that for metastatic prostate cancer, the treatment is androgen deprivation therapy. Patient has just resumed the ADT on 08/21/2019. I talked with him that I will monitor the PSA response closely and will decide about if other treatment options are available including possibly chemotherapy. Patient voiced understanding and agreement. Plan: Continue and complete Casodex 50 mg daily x 30 days Continue Lupron 22.5 mg im q3m, next dose in 3 months (3) Intermittent epigastric abdominal pain Overview: Patient has significant epigastric pain since end of 2018, and is the main reason patient has been seeking medical attention. He also has other gastrointestinal signs and symptoms including black stool, diarrhea, and constipation, and elevated CEA of 12.1. Assessment: Quite unexpectedly, the biopsy of the lesion from 15 cm from the anus showed metastatic prostate cancer. I talked with the patient the treatment is androgen deprivation therapy. Plan: See Prostate Cancer for more discussion. 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
--- NOTE | 2019-09-13 16:05 | ONC.MSW ---
Description: Goals of Care Conversation Activity: BODY WORKER met with pt first prior to Dr. Balbuena's visit, then met jointly with Dr. Balbuena. BODY WORKER explained that I'm joining in the conversation today with Dr. Balbuena, as we plan to discuss the findings on his CT scan, what options are available, and discuss how he is coping with his cancer diagnosis thus far. Dr. Balbuena had shared with this BODY WORKER that pt had expressed twice in their last visit that he would off himself as opposed to doing any chemotherapy or treatment. BODY WORKER explored this with pt. He denies any intent, and ultimately shared that if he did do it, he would shoot himself and fall out of his boat. Discussed that these types of statements are taken very seriously by both Dr. Balbuena and myself, and that we would need to get the [facility] mental health professionals involved if this is really what his intent is, he again denied any intent. In fact, he's actually been making improvements in his diet, is drinking less alcohol, went and got his hair cut, and is remaining in close, daily contact with his good friends. He ultimately agreed to try chemotherapy. BODY WORKER discussed the availability of lodging and the [facility] Medical Relief fund to assist with any kind of moorage fees he may have while he is in treatment. He will get his port placed in 2-weeks, followed by starting chemo. Will plan to continue to check-in on him and monitor his coping/adjustment as we move forward.
--- NOTE | 2019-09-20 11:50 | ONC.SCHED ---
Referral sent for Port placement. Prio auth need only on [id number]; sent in to insurance as urgent.
--- NOTE | 2019-09-24 09:32 | ONC.SCHED ---
Port Placement: fax received from [facility] that patient does not want to schedule port placement at this time, dated 09/19/09 @11:00 a.m.
--- NOTE | 2019-09-25 12:59 | ONC.SCHED ---
Patient now wants to have the port placed. I called [facility] and let them know but I will fax the referral again.
--- NOTE | 2019-10-08 15:51 | ONC.MSW ---
Description: T/C re: scheduling port placement Activity: Called pt after he had been calling [facility] and admin to determine why he has not yet received a call re: scheduling his port placement at [facility]. JOB ORDER CLERK explained that the regional business manager was able to get him scheduled for his port placement on 10/14, 1:00 check-in time for 2:00pm surgery, and that he will need to set an appt. to get his covid test 2-days prior. He didn't have a pen on him. JOB ORDER CLERK will call him back in the morning to reiterate the times when he can write them down.
--- NOTE | 2019-10-09 13:58 | ONC.MSW ---
Description: T/C re: care coordination/planning for port placement Activity: Called pt to explain the next steps for his preparation for his port placement next week. Explained that he need's to call and make an appt. to have his Covid test 72-hours prior to surgery, which means this week-provided him the phone number to call. Explained he also need's to go to the office at [facility] and p/u his paperwork and the body wash ahead of time, as well as explained that he cannot have anything to eat/drink after midnight the night before, and that he will need a driver material handler. He demonstrated much difficulty in processing all of this information, and said many times to this COMMUNICATIONS PROJECT LEAD that his memory is getting worse and worse. COMMUNICATIONS PROJECT LEAD explained that he can always call me, and that anytime he needs assistance, has questions/concerns, that COMMUNICATIONS PROJECT LEAD is available to help him throughout this process of beginning and moving through treatment. Sent an email to the assistant maintenance manager at to please ask someone from her office to call him tomorrow and assist him in understanding their hours and how to find their office, as he will most likely not remember. Will continue to monitor, and will f/u again with pt later this week.
--- NOTE | 2019-10-15 15:42 | ONC.SCHED ---
Left msg for patient to see if he can come in for chemo teaching 10/17 @ 2PM per Bri. Patient is having is port placed today.
--- NOTE | 2019-10-18 17:23 | PC.NURSE ---
CHEMO TEACHING: MATERIAL FOR PATIENT'S TREATMENT PLAN PRINTED OUT AND OFFERED. PATIENT DECLINED TO TAKE SAYING HE WILL NOT READ ANY OF IT. THIS NURSE TOLD PATIENT WHAT HE CAN EXPECT WHEN HE COMES TO THE CENTER FOR TREATMENT, HOW CHEMOTHERAPY WORKS AND THE MAIN FAST GROWING CELLS IN BODY WHICH CAN PRODUCE SIDE EFFECTS; THAT HE SHOULD WATCH FOR SIGNS OF BLEEDING, S/S OF INFECTION AND REPORT ANY CHANGES TO NURSE OR DOCTOR. HE WAS TOLD THAT HE NEEDS TO GO TO ER IF HE DEVELOPS FEVER OF 100.4 OR HIGHER, CHILLS, CHEST PAIN, SOB, SIGNS OF ALLERGIC REACTION ITCHING, SWELLING OF FACE, TOUNGUE, THROAT. WE REVIEWED HOW TO HANDLE WASTE SAFELY IN THE 48 HOURS POST CHEMO; THAT HE WILL MOST LIKELY FEEL FATIGUED AND THAT EXERCISE (WALKING WHENEVER HE CAN GET ON LAND FROM HIS BOAT), HEALTHY DIET AND DRINKING PLENTY OF FLUIDS ARE IMPORTANT, WELL THAT HE SHOULD PERFORM GOOD ORAL CARE. HE STATES HE HAS NOT BRUSHED HIS TEETH IN YEARS AND WAS RECOMMENDED TO RINSE WITH 1/2 TO 1 TSP BAKING SODA OR SALT IN ONE CUP OF WATER AFTER EACH MEAL. THIS NURSE CONFIRMED THAT HE HAS THE [facility] PHONE NUMBER ON HIS PHONE AND EMPHASIZED THAT HE SHOULD CALL TO SPEAK WITH TRIAGE NURSE OR ONCOLOGIST INFECTIOUS DISEASE TECHNICIAN FOR ANY SYMPTOMS CAUSING HIM DIFFICULTY. WE SPENT ONLY ABOUT 20 MINUTES, PATIENT STOOD UP AND SAID HE NEEDED TO GO. HE SPENT MUCH OF THE TIME TEARY AND UPSET TALKING ABOUT HIS SITUATION. HE DID STATE THAT HE WOULD LIKE TO HAVE THE 5 DAY TREATMENT EVEN THOUGH DR MILAN HAD PLANNED A SHORTER TREATMENT IN RESPONSE TO PATIENT'S DISCUSSION WITH HIM THAT THIS WOULD BE DIFFICULT CONSIDERING HIS LIVING SITUATION (SEE LAST REPORT). THIS NURSE ADVISED HIM TO BRING THIS UP WITH DR MILAN ON TUESDAY'S APPT. PATIENT STATED THAT A NEARBY BOATER FRIEND (IN NEIGHBORING BOAT) IS THE PERSON WHO HAS OFFERED SOME ASSISTANCE AND IS WILLING TO TAKE CARE OF HIS DOG AND CAT WHEN HE DIES.
[2019-10-22 11:57] LABS: Alanine Aminotransferase 16 IU/L (<50); Albumin 4.2 g/dL (3.5-5.0); Albumin Globulin Ratio 1.6 (1.0-2.8); Alkaline Phosphatase 62 U/L (38-126); Aspartate Aminotransferase 22 IU/L (17-59); BUN Creatinine Ratio 16.4 (6-22); Bilirubin Total 0.6 mg/dL (0.2-1.3); Blood Urea Nitrogen 12 mg/dL (9-20); Calcium 9.2 mg/dL (8.4-10.2); Carbon Dioxide 26 mmol/L (22-32); Chloride 105 mmol/L (98-107); Estimated Glomerular Filt Rate > 60.0 mL/min (>60); Globulin 2.7 g/dL (1.7-4.1); Glucose 96 mg/dL (80-110); HEMOLYSIS < 15 (0-50); Potassium 3.9 mmol/L (3.4-5.1); Sodium 137 mmol/L (137-145); Total Protein 6.9 g/dL (6.3-8.2)
[2019-10-22 12:04] LABS: Add Manual Diff / Slide Review NO; Basophils Absolute Auto 100 /uL (0-100); Basophils Percent Auto 0.7 % (0-2); Eosinophils Absolute Auto 300 /uL (0-450); Eosinophils Percent Auto 4.1 % (2-4); Lymphocytes Absolute Auto 1900 /uL (1100-4500); Lymphocytes Percent Auto 23.2 % (25-40); Mean Corpuscular HGB Conc 35.7 % (30-36); Mean Corpuscular Hemoglobin 31.6 PG (26-34); Mean Corpuscular Volume 88.6 fL (80-100); Monocytes Absolute Auto 800 /uL (0-900); Monocytes Percent Auto 9.8 % (3-14); Neutrophils Absolute Auto 5100 /uL (1500-7000); Neutrophils Percent Auto 62.2 % (50-75); Platelet Count 193 X10^3/uL (150-400); Red Blood Cell Count 4.74 X10^6/uL (4.5-5.9); Red Cell Distribution Width 15.4 % (11.6-14.8); White Blood Cell Count 8.1 X10^3/uL (4.5-11.0)
[2019-10-22] MEDS: ONDANSETRON 16 MG in SODIUM CHLORIDE 0.9% 50 ML 232 ML IV (13:11)
[2019-10-22] MEDS: SODIUM CHLORIDE 0.9% 100 ML 30 ML IV (13:11)
[2019-10-22] MEDS: FOSAPREPITANT 150 MG in SODIUM CHLORIDE 0.9% 150 ML 300 ML IV (13:38)
--- NOTE | 2019-10-22 13:58 | P.PNONC_ITS ---
PN -Subjective Interval history: ID/CC: 64 year old with metastatic prostate cancer, and small cell lung cancer HPI Rylan Yeung is a 64 year old male. He has been drinking whisky for 50 years. He said he drinks like fish. He also admit to heaving smoking since 14 yeas old. He smokes 3 ppd. He has no intention to quit at present Mr. Yeung was diagnosed with GS 4+4 prostate cancer by TRUS prostate biopsy on 07/24/2015. His initial presentation was urge incontinence and penile nodule. Workup including CT chest on that showed a small right lung nodules and follow up CT in 12 months recommended. On 08/27/2015, he was started on Lupron 30 mg after taking casodex for 4-6 weeks. Bone scan was suspicious for possible metastasis. Follow up CT on 11/29/2016 showed mild interval increase in size of heterogeneous pre-sacral lobulated mass, likely high pelvic adenopathy, stable left adrenal mass measuring 3.4 x 3.7 cm, mild sigmoid colon wall thickening in the region of the presacral mass, and relatively stable areas of sclerosis within the T12 and L2 vertebral bodies. Stable sclerosis of the posterior right ninth rib. No clearly new sclerotic lesions are seen. Bone scan 11/29/2016 showed multiple areas of activity suspicious for metastatic disease.The right intertrochanteric region of activity/metastases has increased significantly in size. He then underwent radiation to the sarcum/right proximal femur from 12/15/2016 to 12/21/2016 at 500 cGy per fraction for 5 fractions to a total of 2500 cGy. He was started on Abiraterone + prednisone started 12/07/16. Then in 06/2017, he was started on Xtandi. His recent treatment his prostate cancer is not clear. Apparent, it has been no hold after he moved to [facility]. About end of 2018 (4-5 months ago), he developed right upper quadrant abdominal pain, that felt like bruised and bad, 8-10/10 in intensity, and constant. Eating does not worsen the pain. No associated nausea or vomiting. He also reports constipation with intermittent diarrhea. He reports tarry black stool at the time. But he did not seek medical care. At times, when RUQ pain quits, he notices right rib pain. He denies cough, and denies headache. His weight has been stable. On 07/05/2019, he visited ER for the abdominal pain that was hurting really bad. He underwent CT chest, abdomen and pelvis that showed a 1.8 cm lobulated/spiculated mass in the right upper lobe, a 1.6 cm diameter right hilar lymph node, a 5 mm indeterminate hepatic hypodensity in the anterior segment of the right hepatic lobe, a 3.7 x 4.3 cm mass just below that of left adrenal gland, thickening of the distal sigmoid colon and rectum, enlarged prostate, and sclerotic appearance of the posterior right ninth rib with associated soft tissue mass, mild expansile appearance of the right 10th rib. Liver and spleen were reportedly normal. On 08/15/2019, patient underwent PET scan. The PET scan showed lucent focus within the left middle cranial fossa which could be further assessed with brain MRI with and without intravenous contrast, malignant appearing uptake within the right upper lobe and right hilum, metastasis to the right ninth rib, hypermetabolic foci within the rectum and the subtending inferior mesenteric vein, left adrenal adenoma and infrarenal abdominal aortic ectasia. On 08/21/2019, I started the patient on androgen deprivation therapy with Lupron 22.5 mg subcutaneous every 3 months. Meanwhile patient also started taking casodex 50 mg once a day with plan for about a month to prevent PSA flare. Patient said that he has tolerated well. Since his previous visit, Dr. Estrada performed colonoscopy. Biopsy from a polyp at 25 cm was negative for dysplasia or malignancy. However biopsy from polyp at 15 cm showed colonic mucosa with metastatic prostate adenocarcinoma. On 08/21/2019, Dr. Avelino Chowdhury did a telephone encounter. Dr. batista thought that the lung lesion did appear to be amenable to bronchoscopic biopsy, but was not able to perform elective bronchoscopy due to the COVID-19 risk of aerosolization. As a result Dr. Chowdhury recommended CT-guided biopsy of the right posterior chest wall lesion. On 08/31/2019, patient underwent CT biopsy of right ninth rib lesion by Dr. Zechariah Bowles. The final pathology showed small cell lung cancer. Interval History On 10/15/2019, patient underwent placement of left subclavian Port-A-Cath by Dr. Wilbur Estrada. Patient presents here today for initiation of first cycle of chemotherapy with carboplatin, etoposide, and atezolizumab. Patient presents here today for scheduled follow-up visit to discuss the results. Clinically patient has been constantly complaining rectal discomfort dense secretions. Dilma cardona is also complaining lower abdomen discomfort. Patient has known right- sided metastasis but he said the pain is on and off and tolerable. He denies any headache, double vision, blurred vision or chest pain or shortness of breath. Treatment Summary: 1. Lupron, started 08/27/2015 - ? 2. Radiation to sarcum/right proximal femur, 12/15/2016 - 12/21/2016 3. Abiraterone + prednisone, 12/07/16 - ? 4. Xtandi, started in 06/2017 - ? 5. Lupron 22.5 mg q3m, started on 08/21/2019 - - Patient Self-Reported Symptoms SR Constitution: Weight loss/gain SR ears, nose, mouth, throat issues: Ears ringing SR Gastrointestinal issues: Poor or no appetite - Additional ROS All systems PM: reviewed and no additional remarkable complaints except as stated Home Medications and Allergies Home Medications Medication Instructions Recorded Confirmed Type lisinopril 20 mg PO DAILY #30 tab 09/03/19 10/15/19 Rx hydrocodone-acetaminophen [[place]] 1 tab PO Q4H PRN #10 tab 10/15/19 Rx ondansetron HCl [Zofran] 4 mg PO Q6H PRN 10/25/19 10/25/19 History Allergies Allergy/AdvReac Type Severity Reaction Status Date / Time No Known Drug Allergies Allergy Verified 10/15/19 14:16 Exam Vital signs: Laboratory Last Values WBC 11.3 X10^3/uL (4.5-11.0) H 10/24/19 10:15 RBC 4.51 X10^6/uL (4.5-5.9) 10/24/19 10:15 Hgb 14.2 g/dL (13.5-17.5) 10/24/19 10:15 Hct 40.3 % (41-53) L 10/24/19 10:15 MCV 89.4 fL (80-100) 10/24/19 10:15 MCH 31.5 PG (26-34) 10/24/19 10:15 MCHC 35.2 % (30-36) 10/24/19 10:15 RDW 15.4 % (11.6-14.8) H 10/24/19 10:15 Plt Count 208 X10^3/uL (150-400) 10/24/19 10:15 Neut % (Auto) 81.2 % (50-75) H 10/24/19 10:15 Lymph % (Auto) 10.2 % (25-40) L 10/24/19 10:15 [place] % (Auto) 8.3 % (3-14) 10/24/19 10:15 Eos % (Auto) 0.1 % (2-4) L 10/24/19 10:15 Baso % (Auto) 0.2 % (0-2) 10/24/19 10:15 Neut # (Auto) 9200 /uL (0468-9406) H 10/24/19 10:15 Lymph # (Auto) 1200 /uL (3305-7294) 10/24/19 10:15 [place] # (Auto) 900 /uL (0-900) 10/24/19 10:15 Eos # (Auto) 0 /uL (0-450) 10/24/19 10:15 Baso # (Auto) 0 /uL (0-100) 10/24/19 10:15 Sodium 138 mmol/L (137-145) 10/24/19 10:15 Potassium 3.7 mmol/L (3.4-5.1) 10/24/19 10:15 Chloride 105 mmol/L (98-107) 10/24/19 10:15 Carbon Dioxide 23 mmol/L (22-32) 10/24/19 10:15 BUN 17 mg/dL (9-20) 10/24/19 10:15 Creatinine 0.76 mg/dL (0.66-1.25) 10/24/19 10:15 Estimated GFR > 60.0 mL/min (>60) 10/24/19 10:15 BUN/Creatinine Ratio 22.4 (6-22) H 10/24/19 10:15 Glucose 78 mg/dL (80-110) L 10/24/19 10:15 Calcium 9.5 mg/dL (8.4-10.2) 10/24/19 10:15 Magnesium 2.2 mg/dL (1.6-2.3) 10/24/19 10:15 Total Bilirubin 0.6 mg/dL (0.2-1.3) 10/24/19 10:15 AST 27 IU/L (17-59) 10/24/19 10:15 ALT 18 IU/L (<50) 10/24/19 10:15 Alkaline Phosphatase 47 U/L (38-126) 10/24/19 10:15 Total Protein 6.8 g/dL (6.3-8.2) 10/24/19 10:15 Albumin 4.3 g/dL (3.5-5.0) 10/24/19 10:15 Globulin 2.5 g/dL (1.7-4.1) 10/24/19 10:15 Albumin/Globulin Ratio 1.7 (1.0-2.8) 10/24/19 10:15 Alpha Fetoprotein 2.4 ng/mL (0.0-8.3) 08/15/19 13:39 Carcinoembryonic Ag 12.1 ng/mL (0.1-3.0) H 08/15/19 13:39 Prostate Specific Ag 29.6 ng/mL (0.10-4.00) H 08/15/19 13:39 Narrative: ECOG 1 Vitals above reviewed Constitutional: WDWN, well nourished, and well groomed. NAD. Pleasant and cooperative. HEENT: NCAT, EOMI, PERRLA, anicteric sclera. Neck: Supple and symmetrical. No palpable thyromegaly or lymphadenopathy. No palpable masses. Respiratory: No use of accessory muscles, no wheezes. Cardiovascular: RRR, S1 and S2 normal, no M/G/R. No edema of lower extremities. Abdomen: Soft, mild mid abdominal tenderness, no palpable hepatosplenomegaly, no hernia. Lymphatic: no palpable palpable lymph nodes in the neck, or axillae. Musculoskeletal: normal gait and station Skin: no rashes, lesions, or ulcers, no induration, or sub cutaneous nodules. Neurological: AOx3, CN II-XII grossly intact. No focal motor or sensory deficit. Psychiatric: AOx3, normal memory (recent and remote), normal mood and affect. Results - Labs Laboratory Last Values WBC 8.1 X10^3/uL (4.5-11.0) 10/22/19 11:40 RBC 4.74 X10^6/uL (4.5-5.9) 10/22/19 11:40 Hgb 15.0 g/dL (13.5-17.5) 10/22/19 11:40 Hct 42.0 % (41-53) 10/22/19 11:40 MCV 88.6 fL (80-100) 10/22/19 11:40 MCH 31.6 PG (26-34) 10/22/19 11:40 MCHC 35.7 % (30-36) 10/22/19 11:40 RDW 15.4 % (11.6-14.8) H 10/22/19 11:40 Plt Count 193 X10^3/uL (150-400) 10/22/19 11:40 Neut % (Auto) 62.2 % (50-75) 10/22/19 11:40 Lymph % (Auto) 23.2 % (25-40) L 10/22/19 11:40 [place] % (Auto) 9.8 % (3-14) 10/22/19 11:40 Eos % (Auto) 4.1 % (2-4) H 10/22/19 11:40 Baso % (Auto) 0.7 % (0-2) 10/22/19 11:40 Neut # (Auto) 5100 /uL (8230-6396) 10/22/19 11:40 Lymph # (Auto) 1900 /uL (6587-8804) 10/22/19 11:40 [place] # (Auto) 800 /uL (0-900) 10/22/19 11:40 Eos # (Auto) 300 /uL (0-450) 10/22/19 11:40 Baso # (Auto) 100 /uL (0-100) 10/22/19 11:40 Sodium 137 mmol/L (137-145) 10/22/19 11:40 Potassium 3.9 mmol/L (3.4-5.1) 10/22/19 11:40 Chloride 105 mmol/L (98-107) 10/22/19 11:40 Carbon Dioxide 26 mmol/L (22-32) 10/22/19 11:40 BUN 12 mg/dL (9-20) 10/22/19 11:40 Creatinine 0.73 mg/dL (0.66-1.25) 10/22/19 11:40 Estimated GFR > 60.0 mL/min (>60) 10/22/19 11:40 BUN/Creatinine Ratio 16.4 (6-22) 10/22/19 11:40 Glucose 96 mg/dL (80-110) 10/22/19 11:40 Calcium 9.2 mg/dL (8.4-10.2) 10/22/19 11:40 Total Bilirubin 0.6 mg/dL (0.2-1.3) 10/22/19 11:40 AST 22 IU/L (17-59) 10/22/19 11:40 ALT 16 IU/L (<50) 10/22/19 11:40 Alkaline Phosphatase 62 U/L (38-126) 10/22/19 11:40 Total Protein 6.9 g/dL (6.3-8.2) 10/22/19 11:40 Albumin 4.2 g/dL (3.5-5.0) 10/22/19 11:40 Globulin 2.7 g/dL (1.7-4.1) 10/22/19 11:40 Albumin/Globulin Ratio 1.6 (1.0-2.8) 10/22/19 11:40 Alpha Fetoprotein 2.4 ng/mL (0.0-8.3) 08/15/19 13:39 Carcinoembryonic Ag 12.1 ng/mL (0.1-3.0) H 08/15/19 13:39 Prostate Specific Ag 29.6 ng/mL (0.10-4.00) H 08/15/19 13:39 Assessment and Plan (1) Small cell lung cancer Overview: 64-year-old gentleman with lifelong history of heavy smoking and alcohol abuse. On 07/05/2019, he was found to have a 1.8 cm lobulated/spiculated mass in the right upper lobe and a 1.6 cm diameter right hilar lymph node on CT scan during an ER visit for abdominal pain. The CT also showed 5 mm indeterminate hepatic hypodensity in the anterior segment of the right hepatic lobe, a 3.7 x 4.3 cm mass just below that of left adrenal gland, thickening of the distal sigmoid colon and rectum, enlarged prostate, and sclerotic appearance of the posterior right ninth rib with associated soft tissue mass, mild expansile appearance of the right 10th rib. Liver and spleen were reportedly normal. On 08/15/2019, PET scan showed lucent focus within the left middle cranial fossa, malignant appearing uptake within the right upper lobe and right hilum, metastasis to the right ninth rib, hypermetabolic foci within the rectum and the subtending inferior mesenteric vein, left adrenal adenoma and infrarenal abdominal aortic ectasia. Assessment: Patient presents here today for initiation of chemotherapy with carboplatin, etoposide, and atezolizumab. First of all I explained to the patient that based on the clinical trial data, the regimen used 3 days of etoposide, not 5 days. Patient voiced understanding. Second I talked with him that his treatment of small cell lung cancer takes priority over prostate cancer and the metastatic lesion in the colon. I talked with him that the small cell lung cancer is a lot more aggressive and rapidly evolving cancer. With the newer chemoimmunotherapy, we see better outcome than chemotherapy alone. Patient voiced understanding and agreement to move forward with the treatment. Plan: Ok to proceed to cycle 1# Carboplatin/Etop/Atezo Weekly CBC, CMP RTC in 3 weeks for C2# labs per protocol. (2) Prostate cancer Overview: GS 4+4 prostate cancer by TRUS prostate biopsy on 07/24/2015. Initial imaging studies showed possible bone metastasis. Throughout these years, patient has received Lupron, Casodex, abiraterone, and Xtandi, but not consistently. He also had radiation therapy in 2017 to the pre-sacral and right proximal femur. Colonoscopy with biopsy on 08/29/2019 showed colonic metastasis of the prostate cancer. Assessment Patient resumed ADT on 08/21/2019. I talked with him that I will monitor the PSA response closely. Plan: Continue Lupron 22.5 mg im q3m, next dose due on 11/12/2019 (3) Intermittent epigastric abdominal pain Overview: Patient has significant epigastric pain since end of 2019, and is the main reason patient has been seeking medical attention. He also has other gastrointestinal signs and symptoms including black stool, diarrhea, and constipation, and elevated CEA of 12.1. Assessment: Quite unexpectedly, the biopsy of the lesion from 15 cm from the anus showed metastatic prostate cancer. I talked with the patient the treatment is androgen deprivation therapy. Plan: See Prostate Cancer for more discussion. 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
[2019-10-22] MEDS: SODIUM CHLORIDE 0.9% IV ×3 (14:32→16:55)
[2019-10-22] MEDS: ATEZOLIZUMAB IV (14:32)
[2019-10-22] MEDS: CARBOPLATIN IV (15:48)
[2019-10-22] MEDS: ETOPOSIDE IV (16:55)
[2019-10-22 18:16] VITALS: BP 131/83; PULSE 63; RESP 16; O2SAT 99
[2019-10-23 11:28] VITALS: BP 124/75; PULSE 69; RESP 20; TEMP 36.7; O2SAT 95
[2019-10-23] MEDS: SODIUM CHLORIDE 0.9% 100 ML 30 ML IV (12:09)
[2019-10-23] MEDS: ONDANSETRON 8 MG in SODIUM CHLORIDE 0.9% 50 ML 216 ML IV (12:09)
[2019-10-23] MEDS: DEXAMETHASONE 10 MG/ML VIAL 8 MG IV (12:09)
[2019-10-23] MEDS: ETOPOSIDE IV (12:53)
[2019-10-23] MEDS: SODIUM CHLORIDE 0.9% IV (12:53)
[2019-10-23 12:57] VITALS: BP 126/73; PULSE 62
--- NOTE | 2019-10-23 12:58 | PC.NURSE ---
pt reports left chest pain/twinge, non radiating, rates about 3 out of 10 after ambulating to restroom. VSS. Garibay RN notified. pain lasted 3-5 min. etoposide infusion started
[2019-10-24 11:44] VITALS: BP 124/76; PULSE 57; RESP 18; TEMP 36.6; O2SAT 100
--- NOTE | 2019-10-24 11:45 | PC.NURSE ---
Blood glucose: 73 Offered Pt crackers, cheese, yogurt, and orange juice.
[2019-10-24 11:47] LABS: Add Manual Diff / Slide Review NO; Basophils Absolute Auto 0 /uL (0-100); Basophils Percent Auto 0.2 % (0-2); Eosinophils Absolute Auto 0 /uL (0-450); Eosinophils Percent Auto 0.1 % (2-4); Hematocrit 40.3 % (41-53); Hemoglobin 14.2 g/dL (13.5-17.5); Lymphocytes Absolute Auto 1200 /uL (1100-4500); Lymphocytes Percent Auto 10.2 % (25-40); Mean Corpuscular HGB Conc 35.2 % (30-36); Mean Corpuscular Hemoglobin 31.5 PG (26-34); Mean Corpuscular Volume 89.4 fL (80-100); Monocytes Absolute Auto 900 /uL (0-900); Monocytes Percent Auto 8.3 % (3-14); Neutrophils Absolute Auto 9200 /uL (1500-7000); Neutrophils Percent Auto 81.2 % (50-75); Platelet Count 208 X10^3/uL (150-400); Red Blood Cell Count 4.51 X10^6/uL (4.5-5.9); Red Cell Distribution Width 15.4 % (11.6-14.8); White Blood Cell Count 11.3 X10^3/uL (4.5-11.0)
[2019-10-24] MEDS: ONDANSETRON 8 MG in SODIUM CHLORIDE 0.9% 50 ML 216 ML IV (12:08)
[2019-10-24] MEDS: SODIUM CHLORIDE 0.9% 100 ML 21 ML IV (12:08)
[2019-10-24] MEDS: DEXAMETHASONE 10 MG/ML VIAL 8 MG IV (12:08)
[2019-10-24 12:31] LABS: Alanine Aminotransferase 18 IU/L (<50); Albumin 4.3 g/dL (3.5-5.0); Albumin Globulin Ratio 1.7 (1.0-2.8); Alkaline Phosphatase 47 U/L (38-126); Aspartate Aminotransferase 27 IU/L (17-59); BUN Creatinine Ratio 22.4 (6-22); Bilirubin Total 0.6 mg/dL (0.2-1.3); Blood Urea Nitrogen 17 mg/dL (9-20); Calcium 9.5 mg/dL (8.4-10.2); Carbon Dioxide 23 mmol/L (22-32); Chloride 105 mmol/L (98-107); Estimated Glomerular Filt Rate > 60.0 mL/min (>60); Globulin 2.5 g/dL (1.7-4.1); Glucose 78 mg/dL (80-110); HEMOLYSIS < 15 (0-50); Magnesium 2.2 mg/dL (1.6-2.3); Potassium 3.7 mmol/L (3.4-5.1); Sodium 138 mmol/L (137-145); Total Protein 6.8 g/dL (6.3-8.2)
--- NOTE | 2019-10-24 12:46 | PC.NURSE ---
PATIENT STATES FEELING VERY LIGHT-HEADED WHEN HE ARRIVED, SLIGHT NAUSEAU THIS AM. BLOOD SUGAR PER FINGERSTICK 73, VSS. PATIENT DRANK 2 CUPS OF COFFEE THIS AM, NO FOOD. NO ALCOHOL SINCE 10/19. HE HAS BEEN DRINKING MINIMAL FLUIDS. CIWA SCORE 4. N/V PROTOKOL ENTERED. LABS UNREMARKABLE EXCEPT WBC/ANC SLIGHTLY INCREASED (SEE LABS). PATIENT REPORTS HE HAS NO OPEN WOUNDS, NO PAIN ON URINATION, NO COUGH, NO FEVER, LUNG SOUNDS CLEAR. REQUEST TO DR MILAN WHETHER WE CAN GIVE HIM A BANANA BAG WITH MULTIVITS AND THIAMINE DUE TO POSSIBLE COMLPICATIONS OF ALCOHOLISM/DETOX. ALSO REQUEST PRESCRIPTION TO BE CALLED IN FOR ANTI-NAUSEAU MEDICATION PATIENT DOES NOT YET HAVE ANY.
[2019-10-24] MEDS: ETOPOSIDE IV (13:32)
[2019-10-24] MEDS: SODIUM CHLORIDE 0.9% IV (13:32)
--- NOTE | 2019-10-24 15:07 | PC.NURSE ---
During infusion of chemotherapy, patient requested a smoke break. Educated patient on hospital policy that does not allow patients to leave clinic while medication is infusing. Offered to disconnect patient from chemo, but that we would not be able to restart it once he was disconnected. Patient stated that he would go smoke in the bathroom. This RN responded that smoking is not allowed in the facility. Patient stated he would not come back to the clinic for further treatment because smoking and drinking is all I have left. After talking with patient he decided he would wait until infusion was complete (~30 minutes). He spoke with psychotherapist social worker and appeared to be feeling more relaxed and in good spirits post treatment. CIWA score post treatment = 3, pt stated he is more agitated due to not having a smoke break but that dizziness/lightheadedness improved. Patient stated he would be back next week for labs/appointment and checked in with armor reconnaissance vehicle crewman prior to departure. .
--- NOTE | 2019-10-25 10:26 | PC.NURSE ---
POST FIRST CHEMO CALL: PATIENT STATES FEELING OK, ABOUT TO EAT HIS OATMEAL. HE STATES HE DRANK WHISKEY LAST NIGHT AND FEELING OK WITH IT. THIS NURSE ENCOURAGED HIM TO KEEP UP ON THE WATER AND JUICE, INFORMED HIM THAT A ANTI-NAUSEAU MEDICATION WILL BE CALLED INTO [facility] AND HE SHOULD TAKE IT AT THE FIRST TWINGE OF NAUSEAU AND THAT HE WILL BE SCHEDULED FOR TUESDAY ON THE FLOOR FOR FLUIDS IF NECESSARY THO HE DOES NOT HAVE TO COME IN. HE VOICED UNDERSTANDING SAYING HE WILL PERPETUAL INVENTORY CLERK THE MEDICATION AND THAT HE PROBABLY WONT COME IN FOR FLUIDS BUT WILL SEE US ON THE .
--- NOTE | 2019-10-25 11:24 | PC.NURSE ---
Addendum entered by Maria Isabel Ortega R.N. 10/25/19 11:31: ZOFRAN CALLED IN (disintegrating tablets) Original Note: Zofran RX Prescription for Zofran 4mg q 6hr PRN, #60 with 3 refills called into [facility] in [place].
[2019-10-27 13:40] VITALS: BP 128/89; PULSE 104; RESP 18; TEMP 36.8; O2SAT 99
[2019-10-27] MEDS: FOLIC ACID IV (13:51)
[2019-10-27] MEDS: MULTIVITAMIN IV (13:51)
[2019-10-27] MEDS: SODIUM CHLORIDE IV (13:51)
[2019-10-27] MEDS: ONDANSETRON 8 MG in SODIUM CHLORIDE 0.9% 50 ML 216 ML IV (13:51)
[2019-10-27] MEDS: THIAMINE IV (13:51)
[2019-10-27 14:01] LABS: Add Manual Diff / Slide Review NO; Basophils Absolute Auto 0 /uL (0-100); Basophils Percent Auto 0.5 % (0-2); Eosinophils Absolute Auto 200 /uL (0-450); Eosinophils Percent Auto 2.5 % (2-4); Hematocrit 43.4 % (41-53); Hemoglobin 15.5 g/dL (13.5-17.5); Lymphocytes Absolute Auto 1300 /uL (1100-4500); Lymphocytes Percent Auto 15.9 % (25-40); Mean Corpuscular HGB Conc 35.6 % (30-36); Mean Corpuscular Hemoglobin 31.2 PG (26-34); Mean Corpuscular Volume 87.6 fL (80-100); Monocytes Absolute Auto 100 /uL (0-900); Monocytes Percent Auto 0.6 % (3-14); Neutrophils Absolute Auto 6700 /uL (1500-7000); Neutrophils Percent Auto 80.5 % (50-75); Platelet Count 191 X10^3/uL (150-400); Red Blood Cell Count 4.95 X10^6/uL (4.5-5.9); Red Cell Distribution Width 15.3 % (11.6-14.8); White Blood Cell Count 8.4 X10^3/uL (4.5-11.0)
[2019-10-27 14:17] LABS: Alanine Aminotransferase 21 IU/L (<50); Albumin 4.4 g/dL (3.5-5.0); Albumin Globulin Ratio 1.7 (1.0-2.8); Alkaline Phosphatase 60 U/L (38-126); Aspartate Aminotransferase 24 IU/L (17-59); Bilirubin Total 0.8 mg/dL (0.2-1.3); Blood Urea Nitrogen 17 mg/dL (9-20); Calcium 9.6 mg/dL (8.4-10.2); Carbon Dioxide 29 mmol/L (22-32); Chloride 103 mmol/L (98-107); Estimated Glomerular Filt Rate > 60.0 mL/min (>60); Globulin 2.6 g/dL (1.7-4.1); Glucose 85 mg/dL (80-110); HEMOLYSIS < 15 (0-50); Magnesium 2.1 mg/dL (1.6-2.3); Potassium 3.9 mmol/L (3.4-5.1); Sodium 138 mmol/L (137-145)
--- NOTE | 2019-10-29 17:50 | PC.NURSE ---
called pt; he states he came and got labs drawn peripherially at phlebotomy. states picked up vitamin and antinausea med and came into the hospital over the weekend to get fluids.
[2019-11-12 12:02] LABS: Hematocrit 33.2 % (41-53); Hemoglobin 11.9 g/dL (13.5-17.5); Mean Corpuscular HGB Conc 35.7 % (30-36); Mean Corpuscular Hemoglobin 31.7 PG (26-34); Mean Corpuscular Volume 88.8 fL (80-100); Platelet Count 200 X10^3/uL (150-400); Red Blood Cell Count 3.74 X10^6/uL (4.5-5.9); Red Cell Distribution Width 16.6 % (11.6-14.8); White Blood Cell Count 4.2 X10^3/uL (4.5-11.0)
[2019-11-12 12:08] LABS: Add Manual Diff / Slide Review YES
[2019-11-12 12:12] LABS: Alanine Aminotransferase 14 IU/L (<50); Albumin 3.8 g/dL (3.5-5.0); Albumin Globulin Ratio 1.5 (1.0-2.8); Alkaline Phosphatase 52 U/L (38-126); Aspartate Aminotransferase 23 IU/L (17-59); BUN Creatinine Ratio 9.9 (6-22); Bilirubin Total 0.4 mg/dL (0.2-1.3); Blood Urea Nitrogen 7 mg/dL (9-20); Calcium 9.1 mg/dL (8.4-10.2); Carbon Dioxide 25 mmol/L (22-32); Chloride 104 mmol/L (98-107); Estimated Glomerular Filt Rate > 60.0 mL/min (>60); Globulin 2.5 g/dL (1.7-4.1); Glucose 130 mg/dL (80-110); HEMOLYSIS < 15 (0-50); Potassium 3.7 mmol/L (3.4-5.1); Sodium 136 mmol/L (137-145); Total Protein 6.3 g/dL (6.3-8.2)
--- NOTE | 2019-11-12 12:16 | P.PNONC_ITS ---
PN -Subjective Interval history: ID/CC: 64 year old with metastatic prostate cancer, and small cell lung cancer HPI Rylan Yeung is a 64 year old male. He has been drinking whisky for 50 years. He said he drinks like fish. He also admit to heaving smoking since 14 yeas old. He smokes 3 ppd. He has no intention to quit at present Mr. Yeung was diagnosed with GS 4+4 prostate cancer by TRUS prostate biopsy on 07/24/2015. His initial presentation was urge incontinence and penile nodule. Workup including CT chest on that showed a small right lung nodules and follow up CT in 12 months recommended. On 08/27/2015, he was started on Lupron 30 mg after taking casodex for 4-6 weeks. Bone scan was suspicious for possible metastasis. Follow up CT on 11/29/2016 showed mild interval increase in size of heterogeneous pre-sacral lobulated mass, likely high pelvic adenopathy, stable left adrenal mass measuring 3.4 x 3.7 cm, mild sigmoid colon wall thickening in the region of the presacral mass, and relatively stable areas of sclerosis within the T12 and L2 vertebral bodies. Stable sclerosis of the posterior right ninth rib. No clearly new sclerotic lesions are seen. Bone scan 11/29/2016 showed multiple areas of activity suspicious for metastatic disease.The right intertrochanteric region of activity/metastases has increased significantly in size. He then underwent radiation to the sarcum/right proximal femur from 12/15/2016 to 12/21/2016 at 500 cGy per fraction for 5 fractions to a total of 2500 cGy. He was started on Abiraterone + prednisone started 12/07/16. Then in 06/2017, he was started on Xtandi. His recent treatment his prostate cancer is not clear. Apparent, it has been no hold after he moved to [facility]. About end of 2018 (4-5 months ago), he developed right upper quadrant abdominal pain, that felt like bruised and bad, 8-10/10 in intensity, and constant. Eating does not worsen the pain. No associated nausea or vomiting. He also reports constipation with intermittent diarrhea. He reports tarry black stool at the time. But he did not seek medical care. At times, when RUQ pain quits, he notices right rib pain. He denies cough, and denies headache. His weight has been stable. On 07/05/2019, he visited ER for the abdominal pain that was hurting really bad. He underwent CT chest, abdomen and pelvis that showed a 1.8 cm lobulated/spiculated mass in the right upper lobe, a 1.6 cm diameter right hilar lymph node, a 5 mm indeterminate hepatic hypodensity in the anterior segment of the right hepatic lobe, a 3.7 x 4.3 cm mass just below that of left adrenal gland, thickening of the distal sigmoid colon and rectum, enlarged prostate, and sclerotic appearance of the posterior right ninth rib with associated soft tissue mass, mild expansile appearance of the right 10th rib. Liver and spleen were reportedly normal. On 08/15/2019, patient underwent PET scan. The PET scan showed lucent focus within the left middle cranial fossa which could be further assessed with brain MRI with and without intravenous contrast, malignant appearing uptake within the right upper lobe and right hilum, metastasis to the right ninth rib, hypermetabolic foci within the rectum and the subtending inferior mesenteric vein, left adrenal adenoma and infrarenal abdominal aortic ectasia. On 08/21/2019, I started the patient on androgen deprivation therapy with Lupron 22.5 mg subcutaneous every 3 months. Meanwhile patient also started taking casodex 50 mg once a day with plan for about a month to prevent PSA flare. Patient said that he has tolerated well. Since his previous visit, Dr. Estrada performed colonoscopy. Biopsy from a polyp at 25 cm was negative for dysplasia or malignancy. However biopsy from polyp at 15 cm showed colonic mucosa with metastatic prostate adenocarcinoma. On 08/21/2019, Dr. Avelino Chowdhury did a telephone encounter. Dr. Chowdhury thought that the lung lesion did appear to be amenable to bronchoscopic biopsy, but was not able to perform elective bronchoscopy due to the COVID-19 risk of aerosolization. As a result Dr. Chowdhury recommended CT-guided biopsy of the right posterior chest wall lesion. On 08/31/2019, patient underwent CT biopsy of right ninth rib lesion by Dr. Zechariah Bowles. The final pathology showed small cell lung cancer. Interval History On 10/15/2019, patient underwent placement of left subclavian Port-A-Cath by Dr. Wilbur Estrada. On 10/22/2019, he was started on chemotherapy with carbo/etop/atezolizumab. He presents today for scheduled follow up visit He denies fever or chills. denies abdominal pain. Treatment Summary: 1. Lupron, started 08/27/2015 - ? 2. Radiation to sarcum/right proximal femur, 12/15/2016 - 12/21/2016 3. Abiraterone + prednisone, 12/07/16 - ? 4. Xtandi, started in 06/2017 - ? 5. Lupron 22.5 mg q3m, started on 08/21/2019 - 6. Carbo/Etop/Atezo: 10/22/2019 - - Patient Self-Reported Symptoms SR Constitution: Fatigue/Malaise SR ears, nose, mouth, throat issues: Ears ringing SR Cardiovascular issues: Shortness of breath with activity or lying flat, Dizzy/lightheaded SR Gastrointestinal issues: Poor or no appetite, Change in bowel pattern, Diarrhea, Constipation, Black/tarry stool, Abdominal pain SR Musculoskeletal issues: Muscle weakness SR Neuro issues: Lightheaded/dizzy SR Hematologic issues: Slow healing SR Endocrine issues: Cold intolerance, Heat intolerance, Hot flashes Home Medications and Allergies Home Medications Medication Instructions Recorded Confirmed Type lisinopril 20 mg PO DAILY #30 tab 09/03/19 11/12/19 Rx hydrocodone-acetaminophen [[place]] 1 tab PO Q4H PRN #10 tab 10/15/19 11/12/19 Rx ondansetron HCl [Zofran] 4 mg PO Q6H PRN 10/25/19 11/12/19 History dicyclomine 20 mg PO QID PRN #20 tab 11/10/19 11/12/19 Rx loperamide 2 mg PO Q4H PRN #20 cap 11/10/19 11/12/19 Rx ondansetron HCl [Zofran] 4 mg PO Q6H PRN #20 tab 11/10/19 11/12/19 Rx triamcinolone acetonide 1 applictn TOP TID #454 gram 11/10/19 11/12/19 Rx Allergies Allergy/AdvReac Type Severity Reaction Status Date / Time No Known Drug Allergies Allergy Verified 10/15/19 14:16 Exam Narrative: ECOG 1 Vitals above reviewed Constitutional: WDWN, well nourished, and well groomed. NAD. Pleasant and cooperative. HEENT: NCAT, EOMI, PERRLA, anicteric sclera. Neck: Supple and symmetrical. No palpable thyromegaly or lymphadenopathy. No palpable masses. Respiratory: No use of accessory muscles, no wheezes. Cardiovascular: RRR, S1 and S2 normal, no M/G/R. No edema of lower extremities. Abdomen: Soft, mild mid abdominal tenderness, no palpable hepatosplenomegaly, no hernia. Lymphatic: no palpable palpable lymph nodes in the neck, or axillae. Musculoskeletal: normal gait and station Skin: no rashes, lesions, or ulcers, no induration, or sub cutaneous nodules. Neurological: AOx3, CN II-XII grossly intact. No focal motor or sensory deficit. Psychiatric: AOx3, normal memory (recent and remote), normal mood and affect. - Constitutional positive no acute distress Results - Labs Laboratory Last Values WBC 4.2 X10^3/uL (4.5-11.0) L 11/12/19 11:40 RBC 3.74 X10^6/uL (4.5-5.9) L 11/12/19 11:40 Hgb 11.9 g/dL (13.5-17.5) L 11/12/19 11:40 Hct 33.2 % (41-53) L 11/12/19 11:40 MCV 88.8 fL (80-100) 11/12/19 11:40 MCH 31.7 PG (26-34) 11/12/19 11:40 MCHC 35.7 % (30-36) 11/12/19 11:40 RDW 16.6 % (11.6-14.8) H 11/12/19 11:40 Plt Count 200 X10^3/uL (150-400) 11/12/19 11:40 Neut % (Auto) Not Reportable 11/12/19 11:40 Lymph % (Auto) Not Reportable 11/12/19 11:40 Dukes % (Auto) Not Reportable 11/12/19 11:40 Eos % (Auto) Not Reportable 11/12/19 11:40 Baso % (Auto) Not Reportable 11/12/19 11:40 Neut # (Auto) 6700 /uL (8384-8433) 10/27/19 13:48 Lymph # (Auto) Not Reportable 11/12/19 11:40 Dukes # (Auto) Not Reportable 11/12/19 11:40 Eos # (Auto) 200 /uL (0-450) 10/27/19 13:48 Baso # (Auto) Not Reportable 11/12/19 11:40 Sodium 136 mmol/L (137-145) L 11/12/19 11:40 Potassium 3.7 mmol/L (3.4-5.1) 11/12/19 11:40 Chloride 104 mmol/L (98-107) 11/12/19 11:40 Carbon Dioxide 25 mmol/L (22-32) 11/12/19 11:40 BUN 7 mg/dL (9-20) L 11/12/19 11:40 Creatinine 0.71 mg/dL (0.66-1.25) 11/12/19 11:40 Estimated GFR > 60.0 mL/min (>60) 11/12/19 11:40 BUN/Creatinine Ratio 9.9 (6-22) 11/12/19 11:40 Glucose 130 mg/dL (80-110) H 11/12/19 11:40 Calcium 9.1 mg/dL (8.4-10.2) 11/12/19 11:40 Magnesium 2.1 mg/dL (1.6-2.3) 10/27/19 13:48 Total Bilirubin 0.4 mg/dL (0.2-1.3) 11/12/19 11:40 AST 23 IU/L (17-59) 11/12/19 11:40 ALT 14 IU/L (<50) 11/12/19 11:40 Alkaline Phosphatase 52 U/L (38-126) 11/12/19 11:40 Total Protein 6.3 g/dL (6.3-8.2) 11/12/19 11:40 Albumin 3.8 g/dL (3.5-5.0) 11/12/19 11:40 Globulin 2.5 g/dL (1.7-4.1) 11/12/19 11:40 Albumin/Globulin Ratio 1.5 (1.0-2.8) 11/12/19 11:40 Alpha Fetoprotein 2.4 ng/mL (0.0-8.3) 08/15/19 13:39 Carcinoembryonic Ag 12.1 ng/mL (0.1-3.0) H 08/15/19 13:39 Prostate Specific Ag 29.6 ng/mL (0.10-4.00) H 08/15/19 13:39 Assessment and Plan (1) Small cell lung cancer Overview: 64-year-old gentleman with lifelong history of heavy smoking and alcohol abuse. On 07/05/2019, he was found to have a 1.8 cm lobulated/spiculated mass in the right upper lobe and a 1.6 cm diameter right hilar lymph node on CT scan during an ER visit for abdominal pain. The CT also showed 5 mm indeterminate hepatic hypodensity in the anterior segment of the right hepatic lobe, a 3.7 x 4.3 cm mass just below that of left adrenal gland, thickening of the distal sigmoid colon and rectum, enlarged prostate, and sclerotic appearance of the posterior right ninth rib with associated soft tissue mass, mild expansile appearance of the right 10th rib. Liver and spleen were reportedly normal. On 08/15/2019, PET scan showed lucent focus within the left middle cranial fossa, malignant appearing uptake within the right upper lobe and right hilum, metastasis to the right ninth rib, hypermetabolic foci within the rectum and the subtending inferior mesenteric vein, left adrenal adenoma and infrarenal abdominal aortic ectasia. Assessment: He tolerated cycle 1# well. No new complaint. I reviewed CBC and CMP with patient They are unremarkable. I will proceed to cycle 2# as planned. Plan: Ok to proceed to cycle 2# Carboplatin/Etop/Atezo Weekly CBC, CMP RTC in 3 weeks for C3# labs per protocol. (2) Prostate cancer Overview: GS 4+4 prostate cancer by TRUS prostate biopsy on 07/24/2015. Initial imaging studies showed possible bone metastasis. Throughout these years, patient has received Lupron, Casodex, abiraterone, and Xtandi, but not consistently. He also had radiation therapy in 2017 to the pre-sacral and right proximal femur. Colonoscopy with biopsy on 08/29/2019 showed colonic metastasis of the prostate cancer. Assessment Patient resumed ADT on 08/21/2019. I talked with him that I will monitor the PSA response closely. Plan: Continue Lupron 22.5 mg im q3m, next dose due on 11/12/2019 (3) Intermittent epigastric abdominal pain Overview: Patient has significant epigastric pain since end of 2019, and is the main reason patient has been seeking medical attention. He also has other gastrointestinal signs and symptoms including black stool, diarrhea, and constipation, and elevated CEA of 12.1. Assessment: Quite unexpectedly, the biopsy of the lesion from 15 cm from the anus showed metastatic prostate cancer. I talked with the patient the treatment is androgen deprivation therapy. Plan: See Prostate Cancer for more discussion. 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
[2019-11-12 12:22] VITALS: BP 133/77; PULSE 64; RESP 16; TEMP 36.6; O2SAT 99
[2019-11-12 12:37] LABS: Neutrophils Absolute Manual 1638 /uL (3000-5900); Total Cells Counted 100
[2019-11-12 12:38] LABS: Anisocytosis 1+; Ovalocytes 1+
[2019-11-12] MEDS: SODIUM CHLORIDE 0.9% 100 ML 21 ML IV (13:36)
[2019-11-12] MEDS: ONDANSETRON 16 MG in SODIUM CHLORIDE 0.9% 50 ML 232 ML IV (13:54)
[2019-11-12] MEDS: FOSAPREPITANT 150 MG in SODIUM CHLORIDE 0.9% 150 ML 300 ML IV (14:16)
[2019-11-12] MEDS: ATEZOLIZUMAB IV (15:28)
[2019-11-12] MEDS: SODIUM CHLORIDE 0.9% IV ×3 (15:28→16:52)
[2019-11-12] MEDS: CARBOPLATIN IV (16:12)
--- NOTE | 2019-11-12 16:16 | PC.NURSE ---
Addendum entered by Levon Jurado R.N. 12/06/19 14:51: DEXAMETHASONE- Called in new Rx 2 mg tabs, PO Daily #21 no refills [facility] Original Note: Called RX for dexamethasone 2 mg tabs. 1 tab PO daily, #21 no refills.
[2019-11-12] MEDS: ETOPOSIDE IV (16:52)
[2019-11-12] MEDS: LEUPROLIDE DEPOT [ELIGARD] 22.5 MG SYR SUBCUT (17:01)
[2019-11-12 17:55] VITALS: BP 126/77; PULSE 70; RESP 16; O2SAT 98
--- NOTE | 2019-11-12 17:56 | PC.NURSE ---
FEELING LOOPY Patient stated long-term through etoposide infusion that he was feeling loopy like he was stoned. Infusion stopped, vitals taken and were stable, MD notified and said it was okay to continue with treatment. Will continue to monitor patient symptoms.
[2019-11-13 11:28] VITALS: BP 134/77; PULSE 75; RESP 17; TEMP 36.7; O2SAT 97
[2019-11-13] MEDS: DEXAMETHASONE 10 MG/ML VIAL 8 MG IV (11:55)
[2019-11-13] MEDS: SODIUM CHLORIDE 0.9% 100 ML 21 ML IV (11:56)
[2019-11-13] MEDS: ONDANSETRON 8 MG in SODIUM CHLORIDE 0.9% 50 ML 216 ML IV (11:56)
--- NOTE | 2019-11-13 12:18 | PC.NURSE ---
Pt's first day of each treatment cycle is his longest day of treatment. Appt time on changed from 11:00 to 10:00am in effort to complete pt's treatment prior to closing of clinic, pt aware and agreeable. Printed out new appt schedule for pt, pt verbalized understanding.
[2019-11-13] MEDS: ETOPOSIDE IV (12:35)
[2019-11-13] MEDS: SODIUM CHLORIDE 0.9% IV (12:35)
[2019-11-14 11:21] VITALS: BP 119/79; PULSE 60; RESP 18; TEMP 36.7; O2SAT 98
[2019-11-14] MEDS: DEXAMETHASONE 10 MG/ML VIAL 8 MG IV (11:50)
[2019-11-14] MEDS: SODIUM CHLORIDE 0.9% 100 ML 21 ML IV (11:50)
[2019-11-14] MEDS: ONDANSETRON 8 MG in SODIUM CHLORIDE 0.9% 50 ML 216 ML IV (11:56)
[2019-11-14] MEDS: SODIUM CHLORIDE 0.9% IV (12:11)
[2019-11-14] MEDS: ETOPOSIDE IV (12:11)
[2019-11-19 16:04] LABS: Basophils Absolute Auto 100 /uL (0-100); Basophils Percent Auto 1.1 % (0-2); Eosinophils Absolute Auto 0 /uL (0-450); Hemoglobin 12.3 g/dL (13.5-17.5); Lymphocytes Absolute Auto 1500 /uL (1100-4500); Monocytes Absolute Auto 100 /uL (0-900); Monocytes Percent Auto 1.3 % (3-14); Neutrophils Absolute Auto 5800 /uL (1500-7000)
[2019-11-19 16:22] LABS: Alanine Aminotransferase 22 IU/L (<50); Albumin 4.3 g/dL (3.5-5.0); Albumin Globulin Ratio 1.9 (1.0-2.8); Alkaline Phosphatase 55 U/L (38-126); Aspartate Aminotransferase 26 IU/L (17-59); BUN Creatinine Ratio 14.7 (6-22); Bilirubin Total 0.7 mg/dL (0.2-1.3); Blood Urea Nitrogen 17 mg/dL (9-20); Calcium 9.3 mg/dL (8.4-10.2); Carbon Dioxide 29 mmol/L (22-32); Chloride 97 mmol/L (98-107); Estimated Glomerular Filt Rate > 60.0 mL/min (>60); Globulin 2.3 g/dL (1.7-4.1); Glucose 98 mg/dL (80-110); HEMOLYSIS < 15 (0-50); Potassium 3.3 mmol/L (3.4-5.1); Sodium 133 mmol/L (137-145); Total Protein 6.6 g/dL (6.3-8.2)
[2019-11-19 16:28] LABS: Add Manual Diff / Slide Review NO; Eosinophils Percent Auto 0.5 % (2-4); Hematocrit 34.4 % (41-53); Mean Corpuscular HGB Conc 35.8 % (30-36); Mean Corpuscular Hemoglobin 31.3 PG (26-34); Mean Corpuscular Volume 87.5 fL (80-100); Neutrophils Percent Auto 77.1 % (50-75); Platelet Count 224 X10^3/uL (150-400); Red Blood Cell Count 3.93 X10^6/uL (4.5-5.9); Red Cell Distribution Width 16.9 % (11.6-14.8); White Blood Cell Count 7.5 X10^3/uL (4.5-11.0)
--- NOTE | 2019-11-20 11:36 | PC.NURSE ---
Called pt to discuss recent labs and Potassium RX that this RN would be calling into pharmacy, when pt answered phone he was audibly SOB, voice was faint and was speaking just above a whisper. Pt explains that he feels like I'm going to have a heart attack. According to pt, he heard his dog barking at something but was unable to see what was going on because he was on the toilet. Pt reports several episodes on diarrhea. Pt reports his dog jumped off the boat and swam about 150 [address] to the beach. Pt reports extreme weakness and fatigue. Informed pt that this service writer needed to end phone call and contact emergency services to evaluate and assist him, initially pt hesitant r/t possible incurred costs, then agreed, states tell them to hurry. Boat name and description obtained from this RN and given to pellet preparation operator.
--- NOTE | 2019-11-22 09:52 | PC.NURSE ---
This RN called to check up on pt post ER visit on Tuesday. Pt reports feeling good. Denies diarrhea. According to pt he was able to pickup driver his Dex from the pharmacy yesterday and began taking it as prescribed. Speech was clear during conversation, no audible SOB noted. Overall pt reports doing a lot better. Confirmed appt for 10am on 12/03/19 with pt.
--- NOTE | 2019-11-26 11:50 | PC.NURSE ---
responded to pt's messages left on voice mail. pt states, I didn't cone picker the medicine for diarrhea (lopramide) since it has slowed up. reviewed how to take dexamethasone 2mg PO daily in the morning. Pt stated he understood. This RN also informed pt that Sharmin Hernández is following up on the [facility] claim.
[2019-12-03 10:33] LABS: Add Manual Diff / Slide Review NO; Basophils Absolute Auto 100 /uL (0-100); Eosinophils Absolute Auto 0 /uL (0-450); Eosinophils Percent Auto 0.1 % (2-4); Hemoglobin 11.7 g/dL (13.5-17.5); Lymphocytes Absolute Auto 1000 /uL (1100-4500); Lymphocytes Percent Auto 18.2 % (25-40); Mean Corpuscular HGB Conc 35.5 % (30-36); Mean Corpuscular Hemoglobin 32.9 PG (26-34); Mean Corpuscular Volume 92.7 fL (80-100); Monocytes Absolute Auto 800 /uL (0-900); Monocytes Percent Auto 13.6 % (3-14); Neutrophils Absolute Auto 3700 /uL (1500-7000); Neutrophils Percent Auto 67.1 % (50-75); Platelet Count 193 X10^3/uL (150-400); Red Blood Cell Count 3.55 X10^6/uL (4.5-5.9); White Blood Cell Count 5.6 X10^3/uL (4.5-11.0)
[2019-12-03 10:44] LABS: Alanine Aminotransferase 25 IU/L (<50); Albumin 4.2 g/dL (3.5-5.0); Albumin Globulin Ratio 1.9 (1.0-2.8); Alkaline Phosphatase 61 U/L (38-126); Aspartate Aminotransferase 32 IU/L (17-59); BUN Creatinine Ratio 14.8 (6-22); Bilirubin Total 0.6 mg/dL (0.2-1.3); Blood Urea Nitrogen 12 mg/dL (9-20); Calcium 9.3 mg/dL (8.4-10.2); Carbon Dioxide 28 mmol/L (22-32); Chloride 102 mmol/L (98-107); Estimated Glomerular Filt Rate > 60.0 mL/min (>60); Globulin 2.2 g/dL (1.7-4.1); Glucose 108 mg/dL (80-110); HEMOLYSIS < 15 (0-50); Potassium 3.9 mmol/L (3.4-5.1); Sodium 133 mmol/L (137-145); Total Protein 6.4 g/dL (6.3-8.2)
[2019-12-03 10:49] LABS: Anisocytosis 2+
[2019-12-03] MEDS: LORazepam 0.5 MG TABLET PO (12:23)
[2019-12-03] MEDS: ONDANSETRON 16 MG in SODIUM CHLORIDE 0.9% 50 ML 232 ML IV (12:23)
[2019-12-03] MEDS: FOSAPREPITANT 150 MG in SODIUM CHLORIDE 0.9% 150 ML 300 ML IV (12:59)
[2019-12-03] MEDS: SODIUM CHLORIDE 0.9% 100 ML 21 ML IV (13:00)
--- NOTE | 2019-12-03 13:35 | P.PNONC_ITS ---
PN -Subjective Interval history: ID/CC: 64 year old with metastatic prostate cancer, and small cell lung cancer HPI Rylan Yeung is a 64 year old male. He has been drinking whisky for 50 years. He said he drinks like fish. He also admit to heaving smoking since 14 yeas old. He smokes 3 ppd. He has no intention to quit at present Mr. Yeung was diagnosed with GS 4+4 prostate cancer by TRUS prostate biopsy on 07/24/2015. His initial presentation was urge incontinence and penile nodule. Workup including CT chest on that showed a small right lung nodules and follow up CT in 12 months recommended. On 08/27/2015, he was started on Lupron 30 mg after taking casodex for 4-6 weeks. Bone scan was suspicious for possible metastasis. Follow up CT on 11/29/2016 showed mild interval increase in size of heterogeneous pre-sacral lobulated mass, likely high pelvic adenopathy, stable left adrenal mass measuring 3.4 x 3.7 cm, mild sigmoid colon wall thickening in the region of the presacral mass, and relatively stable areas of sclerosis within the T12 and L2 vertebral bodies. Stable sclerosis of the posterior right ninth rib. No clearly new sclerotic lesions are seen. Bone scan 11/29/2016 showed multiple areas of activity suspicious for metastatic disease.The right intertrochanteric region of activity/metastases has increased significantly in size. He then underwent radiation to the sarcum/right proximal femur from 12/15/2016 to 12/21/2016 at 500 cGy per fraction for 5 fractions to a total of 2500 cGy. He was started on Abiraterone + prednisone started 12/07/16. Then in 06/2017, he was started on Xtandi. His recent treatment his prostate cancer is not clear. Apparent, it has been no hold after he moved to [facility]. About end of 2018 (4-5 months ago), he developed right upper quadrant abdominal pain, that felt like bruised and bad, 8-10/10 in intensity, and constant. Eating does not worsen the pain. No associated nausea or vomiting. He also reports constipation with intermittent diarrhea. He reports tarry black stool at the time. But he did not seek medical care. At times, when RUQ pain quits, he notices right rib pain. He denies cough, and denies headache. His weight has been stable. On 07/05/2019, he visited ER for the abdominal pain that was hurting really bad. He underwent CT chest, abdomen and pelvis that showed a 1.8 cm lobulated/spiculated mass in the right upper lobe, a 1.6 cm diameter right hilar lymph node, a 5 mm indeterminate hepatic hypodensity in the anterior segment of the right hepatic lobe, a 3.7 x 4.3 cm mass just below that of left adrenal gland, thickening of the distal sigmoid colon and rectum, enlarged prostate, and sclerotic appearance of the posterior right ninth rib with associated soft tissue mass, mild expansile appearance of the right 10th rib. Liver and spleen were reportedly normal. On 08/15/2019, patient underwent PET scan. The PET scan showed lucent focus within the left middle cranial fossa which could be further assessed with brain MRI with and without intravenous contrast, malignant appearing uptake within the right upper lobe and right hilum, metastasis to the right ninth rib, hypermetabolic foci within the rectum and the subtending inferior mesenteric vein, left adrenal adenoma and infrarenal abdominal aortic ectasia. On 08/21/2019, I started the patient on androgen deprivation therapy with Lupron 22.5 mg subcutaneous every 3 months. Meanwhile patient also started taking casodex 50 mg once a day with plan for about a month to prevent PSA flare. Patient said that he has tolerated well. Since his previous visit, Dr. Estrada performed colonoscopy. Biopsy from a polyp at 25 cm was negative for dysplasia or malignancy. However biopsy from polyp at 15 cm showed colonic mucosa with metastatic prostate adenocarcinoma. On 08/21/2019, Dr. Avelino Chowdhury did a telephone encounter. Dr. Chowdhury thought that the lung lesion did appear to be amenable to bronchoscopic biopsy, but was not able to perform elective bronchoscopy due to the COVID-19 risk of aerosolization. As a result Dr. Chowdhury recommended CT-guided biopsy of the right posterior chest wall lesion. On 08/31/2019, patient underwent CT biopsy of right ninth rib lesion by Dr. Zechariah Bowles. The final pathology showed small cell lung cancer. On 10/15/2019, patient underwent placement of left subclavian Port-A-Cath by Dr. Wilbur Estrada. On 10/22/2019, he was started on chemotherapy with carbo/etop/atezolizumab. Interval History He presents today for scheduled follow up visit. Up until now, patient has completed 2 cycles of the scheduled chemotherapy we carboplatin/etoposide/atezolizumab. He presents here today for scheduled cycle 3. He denies fever or chills. denies abdominal pain. He reported that his main complaint has been the rectosigmoid lesions and rectal pain. Other than that, he said he has been doing actually pretty well. Because of the rectosigmoid pain and secretion, patient has to use diapers 29/11. Treatment Summary: 1. Lupron, started 08/27/2015 - ? 2. Radiation to sarcum/right proximal femur, 12/15/2016 - 12/21/2016 3. Abiraterone + prednisone, 12/07/16 - ? 4. Xtandi, started in 06/2017 - ? 5. Lupron 22.5 mg q3m, started on 08/21/2019 - 6. Carbo/Etop/Atezo: 10/22/2019 - - Patient Self-Reported Symptoms SR Constitution: Fatigue/Malaise SR ears, nose, mouth, throat issues: Ears ringing SR Cardiovascular issues: Shortness of breath with activity or lying flat, Dizzy/lightheaded SR Gastrointestinal issues: Poor or no appetite, Change in bowel pattern, Diarrhea, Constipation, Black/tarry stool, Abdominal pain SR Musculoskeletal issues: Muscle weakness SR Neuro issues: Lightheaded/dizzy SR Hematologic issues: Slow healing SR Endocrine issues: Cold intolerance, Heat intolerance, Hot flashes - Additional ROS All systems PM: reviewed and no additional remarkable complaints except as stated Home Medications and Allergies Home Medications Medication Instructions Recorded Confirmed Type lisinopril 20 mg PO DAILY #30 tab 09/03/19 11/12/19 Rx hydrocodone-acetaminophen [Patterson] 1 tab PO Q4H PRN #10 tab 10/15/19 11/12/19 Rx ondansetron HCl [Zofran] 4 mg PO Q6H PRN 10/25/19 11/12/19 History dicyclomine 20 mg PO QID PRN #20 tab 11/10/19 11/12/19 Rx loperamide 2 mg PO Q4H PRN #20 cap 11/10/19 11/12/19 Rx ondansetron HCl [Zofran] 4 mg PO Q6H PRN #20 tab 11/10/19 11/12/19 Rx triamcinolone acetonide 1 applictn TOP TID #454 gram 11/10/19 11/12/19 Rx bicalutamide [Casodex] 50 mg PO DAILY 3 Days #60 tab 12/03/19 Rx Allergies Allergy/AdvReac Type Severity Reaction Status Date / Time No Known Drug Allergies Allergy Verified 11/20/19 12:14 Exam Vital signs: Last Vital Signs Temp 98.2 F 12/04/19 10:16 Pulse 66 12/04/19 10:16 Resp 18 12/04/19 10:16 BP 124/78 12/04/19 10:16 Pulse Ox 96 12/04/19 10:16 Narrative: ECOG 1 Vitals above reviewed Constitutional: WDWN, well nourished, and well groomed. NAD. Pleasant and cooperative. HEENT: NCAT, EOMI, PERRLA, anicteric sclera. Neck: Supple and symmetrical. No palpable thyromegaly or lymphadenopathy. No palpable masses. Respiratory: No use of accessory muscles, no wheezes. Cardiovascular: RRR, S1 and S2 normal, no M/G/R. No edema of lower extremities. Abdomen: Soft, mild mid abdominal tenderness, no palpable hepatosplenomegaly, no hernia. Lymphatic: no palpable palpable lymph nodes in the neck, or axillae. Musculoskeletal: normal gait and station Neurological: AOx3, CN II-XII grossly intact. No focal motor or sensory deficit. Psychiatric: AOx3, normal memory (recent and remote), normal mood and affect. Results - Labs Laboratory Last Values WBC 5.6 X10^3/uL (4.5-11.0) 12/03/19 10:20 RBC 3.55 X10^6/uL (4.5-5.9) L 12/03/19 10:20 Hgb 11.7 g/dL (13.5-17.5) L 12/03/19 10:20 Hct 33.0 % (41-53) L 12/03/19 10:20 MCV 92.7 fL (80-100) 12/03/19 10:20 MCH 32.9 PG (26-34) 12/03/19 10:20 MCHC 35.5 % (30-36) 12/03/19 10:20 RDW 21.0 % (11.6-14.8) H 12/03/19 10:20 Plt Count 193 X10^3/uL (150-400) 12/03/19 10:20 Neut % (Auto) 67.1 % (50-75) 12/03/19 10:20 Lymph % (Auto) 18.2 % (25-40) L 12/03/19 10:20 [place] % (Auto) 13.6 % (3-14) 12/03/19 10:20 Eos % (Auto) 0.1 % (2-4) L 12/03/19 10:20 Baso % (Auto) 1.0 % (0-2) 12/03/19 10:20 Neut # (Auto) 3700 /uL (2312-8590) 12/03/19 10:20 Lymph # (Auto) 1000 /uL (2574-5608) L 12/03/19 10:20 [place] # (Auto) 800 /uL (0-900) 12/03/19 10:20 Eos # (Auto) 0 /uL (0-450) 12/03/19 10:20 Baso # (Auto) 100 /uL (0-100) 12/03/19 10:20 Total Counted 100 11/12/19 11:40 Seg Neutrophils % 35.0 % (38-70) L 11/12/19 11:40 Band Neutrophils % 4.0 % (3-7) 11/12/19 11:40 Lymphocytes % (Manual) 38.0 % (25-45) 11/12/19 11:40 Atypical Lymphs % 1.0 % (-0) H 11/12/19 11:40 Monocytes % (Manual) 14.0 % (2-11) H 11/12/19 11:40 Eosinophils % (Manual) 2.0 % (2-4) 11/12/19 11:40 Metamyelocytes % 2.0 % (-0) H 11/12/19 11:40 Myelocytes % 4.0 % (-0) H 11/12/19 11:40 Neutrophils # (Manual) 1638 /uL (2503-9632) L 11/12/19 11:40 RBC Morphology Not Reportable 12/03/19 10:20 Anisocytosis 2+ H 12/03/19 10:20 Ovalocytes 1+ H 11/12/19 11:40 Sodium 133 mmol/L (137-145) L 12/03/19 10:20 Potassium 3.9 mmol/L (3.4-5.1) 12/03/19 10:20 Chloride 102 mmol/L (98-107) 12/03/19 10:20 Carbon Dioxide 28 mmol/L (22-32) 12/03/19 10:20 BUN 12 mg/dL (9-20) 12/03/19 10:20 Creatinine 0.81 mg/dL (0.66-1.25) 12/03/19 10:20 Estimated GFR > 60.0 mL/min (>60) 12/03/19 10:20 BUN/Creatinine Ratio 14.8 (6-22) 12/03/19 10:20 Glucose 108 mg/dL (80-110) 12/03/19 10:20 Calcium 9.3 mg/dL (8.4-10.2) 12/03/19 10:20 Magnesium 2.1 mg/dL (1.6-2.3) 10/27/19 13:48 Total Bilirubin 0.6 mg/dL (0.2-1.3) 12/03/19 10:20 AST 32 IU/L (17-59) 12/03/19 10:20 ALT 25 IU/L (<50) 12/03/19 10:20 Alkaline Phosphatase 61 U/L (38-126) 12/03/19 10:20 Total Protein 6.4 g/dL (6.3-8.2) 12/03/19 10:20 Albumin 4.2 g/dL (3.5-5.0) 12/03/19 10:20 Globulin 2.2 g/dL (1.7-4.1) 12/03/19 10:20 Albumin/Globulin Ratio 1.9 (1.0-2.8) 12/03/19 10:20 Alpha Fetoprotein 2.4 ng/mL (0.0-8.3) 08/15/19 13:39 Carcinoembryonic Ag 12.1 ng/mL (0.1-3.0) H 08/15/19 13:39 Prostate Specific Ag 29.6 ng/mL (0.10-4.00) H 08/15/19 13:39 Assessment and Plan (1) Small cell lung cancer Overview: 64-year-old gentleman with lifelong history of heavy smoking and alcohol abuse. On 07/05/2019, he was found to have a 1.8 cm lobulated/spiculated mass in the right upper lobe and a 1.6 cm diameter right hilar lymph node on CT scan during an ER visit for abdominal pain. The CT also showed 5 mm indeterminate hepatic hypodensity in the anterior segment of the right hepatic lobe, a 3.7 x 4.3 cm mass just below that of left adrenal gland, thickening of the distal sigmoid colon and rectum, enlarged prostate, and sclerotic appearance of the posterior right ninth rib with associated soft tissue mass, mild expansile appearance of the right 10th rib. Liver and spleen were reportedly normal. On 08/15/2019, PET scan showed lucent focus within the left middle cranial fossa, malignant appearing uptake within the right upper lobe and right hilum, metastasis to the right ninth rib, hypermetabolic foci within the rectum and the subtending inferior mesenteric vein, left adrenal adenoma and infrarenal abdominal aortic ectasia. Assessment: He tolerated previous 2 cycles well. No new complaint. I reviewed CBC and CMP with patient They are unremarkable. I will proceed to cycle 3# as planned. Plan: Ok to proceed to cycle 3# Carboplatin/Etop/Atezo Weekly CBC, CMP RTC in 3 weeks for C4# labs per protocol. (2) Prostate cancer Overview: GS 4+4 prostate cancer by TRUS prostate biopsy on 07/24/2015. Initial imaging studies showed possible bone metastasis. Throughout these years, patient has received Lupron, Casodex, abiraterone, and Xtandi, but not consistently. He also had radiation therapy in 2017 to the pre-sacral and right proximal femur. Colonoscopy with biopsy on 08/29/2019 showed colonic metastasis of the prostate cancer. Assessment Patient resumed ADT on 08/21/2019. I talked with him that I will monitor the PSA response closely. His most recent PSA level has slightly decreased compared to his previous levels. Patient has significant anal rectal symptoms including pain and secretions. Talked with the patient that I will add a Casodex on top of the androgen deprivation therapy with Lupron. In addition I would like to explore the role of radiation therapy in terms of palliation of the anorectal symptoms. Patient voiced understanding. Plan: Continue Lupron 22.5 mg im q3m, next due 02/04/2020. Referal to radiation oncology at [facility] for evaluation of the role of XRT in palliation of anorectal symptoms. Start Casodex 50 mg daily (3) Port-A-Cath in place Flush every 4-6 weeks
[2019-12-03] MEDS: ATEZOLIZUMAB IV (14:04)
[2019-12-03] MEDS: SODIUM CHLORIDE 0.9% IV ×3 (14:04→16:13)
[2019-12-03] MEDS: CARBOPLATIN IV (15:33)
[2019-12-03] MEDS: ETOPOSIDE IV (16:13)
[2019-12-04 10:16] VITALS: BP 124/78; PULSE 66; RESP 18; TEMP 36.8; O2SAT 96
[2019-12-04] MEDS: DEXAMETHASONE 10 MG/ML VIAL 8 MG IV (11:05)
[2019-12-04] MEDS: ONDANSETRON 8 MG in SODIUM CHLORIDE 0.9% 50 ML 216 ML IV (11:05)
[2019-12-04] MEDS: SODIUM CHLORIDE 0.9% 100 ML 30 ML IV (11:06)
[2019-12-04] MEDS: SODIUM CHLORIDE 0.9% IV (11:56)
[2019-12-04] MEDS: ETOPOSIDE IV (11:56)
[2019-12-05 10:30] VITALS: BP 117/66; PULSE 72; RESP 16; TEMP 36.9; O2SAT 95
[2019-12-05] MEDS: DEXAMETHASONE 10 MG/ML VIAL 8 MG IV (10:52)
[2019-12-05] MEDS: ONDANSETRON 8 MG in SODIUM CHLORIDE 0.9% 50 ML 216 ML IV (11:13)
[2019-12-05] MEDS: SODIUM CHLORIDE 0.9% 100 ML 21 ML IV (11:14)
[2019-12-05] MEDS: ETOPOSIDE IV (11:41)
[2019-12-05] MEDS: SODIUM CHLORIDE 0.9% IV (11:41)
--- NOTE | 2019-12-05 13:28 | PC.NURSE ---
DEXAMETHASONE: PATIENT CALLED ON 12/03 TO REPORT THAT HE INDEED DID WARDROBE SPECIALIST HIS DEX AND HAS BEEN TAKING 2 MG DAILY. WHEN IN FOR TREATMENT HE WAS NOT SURE IF THAT WAS THE MED HE HAD PICKED UP.
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
--- NOTE | 2019-12-06 11:09 | PC.NURSE ---
Pt called to ask about appointment with [facility], this Rn called and left a message stating they will be contacting him to schedule. He also needed to be scheduled for labs 12/09, at which time I told him his apt time.
--- NOTE | 2019-12-06 11:53 | ONC.SCHED ---
Received request from Scottie to send referral to [facility]. Let Sharmin know I was going to send it so she could provide background info to them. She will let me know when to go ahead with sending it.
--- NOTE | 2019-12-06 15:16 | ONC.SCHED ---
Per Racheal at [facility], patient is scheduled for 12/24/[address] Parr.
[2019-12-10 11:09] LABS: Add Manual Diff / Slide Review NO; Basophils Absolute Auto 0 /uL (0-100); Basophils Percent Auto 0.7 % (0-2); Eosinophils Absolute Auto 0 /uL (0-450); Eosinophils Percent Auto 0.1 % (2-4); Hematocrit 29.1 % (41-53); Hemoglobin 10.3 g/dL (13.5-17.5); Lymphocytes Absolute Auto 900 /uL (1100-4500); Lymphocytes Percent Auto 12.5 % (25-40); Mean Corpuscular HGB Conc 35.4 % (30-36); Mean Corpuscular Hemoglobin 32.8 PG (26-34); Mean Corpuscular Volume 92.7 fL (80-100); Monocytes Absolute Auto 100 /uL (0-900); Monocytes Percent Auto 1.1 % (3-14); Neutrophils Absolute Auto 6000 /uL (1500-7000); Neutrophils Percent Auto 85.6 % (50-75); Platelet Count 181 X10^3/uL (150-400); Red Blood Cell Count 3.14 X10^6/uL (4.5-5.9); Red Cell Distribution Width 20.3 % (11.6-14.8)
[2019-12-10 11:21] LABS: Alanine Aminotransferase 30 IU/L (<50); Albumin 4.3 g/dL (3.5-5.0); Alkaline Phosphatase 60 U/L (38-126); Aspartate Aminotransferase 33 IU/L (17-59); BUN Creatinine Ratio 25.3 (6-22); Bilirubin Total 0.7 mg/dL (0.2-1.3); Blood Urea Nitrogen 21 mg/dL (9-20); Calcium 9.6 mg/dL (8.4-10.2); Carbon Dioxide 27 mmol/L (22-32); Chloride 101 mmol/L (98-107); Estimated Glomerular Filt Rate > 60.0 mL/min (>60); Globulin 2.2 g/dL (1.7-4.1); Glucose 111 mg/dL (80-110); HEMOLYSIS < 15 (0-50); Potassium 4.3 mmol/L (3.4-5.1); Sodium 132 mmol/L (137-145); Total Protein 6.5 g/dL (6.3-8.2)
[2019-12-10 11:26] LABS: Anisocytosis 2+; Ovalocytes 2+
--- NOTE | 2019-12-17 16:13 | PC.NURSE ---
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 HE REQUESTED IDEAS OF HOW TO FIRM IT UP. THIS NURSE ADVISED THAT SUCH FOODS WELL COOKED WHITE RICE, PEANUT BUTTER, RIPE BANANAS, DARK CHOCOLATE CAN FIRM UP STOOL. SHE ALSO ADVISED THAT HE NEEDS TO CONTINUE TO DRINK PLENTY OF FLUIDS. PATIENT AFFIRMED THAT HE DRINKS 5-6 BOTTLES OF WATER PER DAY. HE STATED THAT THE STOOL SITUATION WAS BAD YESTERDAY BUT BETTER TODAY.
--- NOTE | 2019-12-18 08:28 | ONC.MSW ---
Description: Care Coordination Activity: Met with pt to check-in re: coping and tx planning questions. 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 He reports that his pain is under control, anxiety is significantly better. He's looking forward to his upcoming radiation treatments with the hope that his symptoms relating to his rectal drainage will improve, thus improving his overall quality of life. No further needs indicated at this time.
--- NOTE | 2019-12-24 15:14 | PC.NURSE ---
Pt is to start radiation treatment the week of the . Due to the start of radiation, wants to postpone his treatments until after radiation therapy. Spoke with [facility]ology[facility]phan[facility]. [phone]
--- NOTE | 2019-12-25 13:41 | ONC.MSW ---
Description: Transportation to Radiation at [facility] Activity: Adolfo from [facility]'s [employer] stopped by clinic to clarify the rides that have been approved for payment from his taxi service. Yesterday, pt reportedly had him to drive (pt) to [place] for his radiation consult appt., however that was never approved or scheduled through this STRAPPER OPERATOR. Confirmed with Adolfo the dates that were approved, which have already been used. Discussed some boundary setting re: pt requesting rides. Called the STRAPPER OPERATOR at [facility] and requested for him to contact pt re: scheduling rides for his radiation appointments.
--- NOTE | 2020-01-07 16:21 | PC.NURSE ---
PT CALLED TODAY TO INQUIRE ABOUT DEX RX. PT REPORTED HAVING A BROKEN RIB AND 8/10 PAIN. AWARE, ORDERS FOR 2V CHEST XRAY. THIS RN EDUCATED PT ON S/S OF COLLAPSED RIB AND INSTRUCTED PT TO CALL 911 OR REPORT TO THE ER IF HIS BREATHING BECOMES LABORED. PT REFUSED TO GO TO ED FOR PAIN CONTROL. PT REPORTED HE WILL BE ALL RIGHT AND VERBALIZED HE WOULD CALL IF THERE WAS A CHANGE IN HEALTH STATUS. PT WILL REPORT TO CLINIC TOMORROW FOR SCHEDULED LUPRON AND CHEST XR.
--- NOTE | 2020-01-10 15:05 | PC.NURSE ---
late note- Rib pain; Yesterday Dr. Santacruz reviewed pt's chest xray from 01/07, no rib fx noted. This RN spoke with pt, according to pt he was still experiencing significant pain, I have broken a few ribs before and this is what it feels like. Denies SOB, chest pain and pressure, states Its my ribs that hurt. Dr. Santacruz ordered additional imaging to be completed, pt declined to come to hospital on for additional imaging but agreeable to come in . Dr. Balbuena reviewed new imaging today, no new fx noted and no new orders received. This RN called pt to update him on the additional imaging. Pt became audibly upset Well, god dammit, it's broken. that machine doesn't know shit. Discussed location of noted metastatic disease around 9th rib, pt states yeah, I already know that. Pt does report improvement in pain today, yeah, it does feel a little better than yesterday. I guess if it feels better in the next day or so, it ain't no broken rib. Pt continues to denies SOB and chest pain or pressure. Pt declines pain medication intervention, hell no, that shit makes me crazy as hell. Clear, simple plan created to monitor rib discomfort with pt; if discomfort continues to improve each day, pt will call clinic on Tuesday with update. If pain gets worse or if pt experiences SOB or chest pressure, or any new pain pt will be assessed in ER. Pt states yeah, I can do that.
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
--- NOTE | 2020-01-21 16:53 | PC.NURSE ---
CALLED TO CONFIRM THIS WEEK'S APPOINTMENTS Spoke with Pt and confirmed that he has appointments scheduled for , , this week. Pt verbalized understanding and said he would arrive for 10AM appointment tomorrow. Informed Pt that we will have a check for his transportation made out to [facility].
[2020-01-22 10:29] LABS: Add Manual Diff / Slide Review NO; Basophils Absolute Auto 100 /uL (0-100); Basophils Percent Auto 0.8 % (0-2); Eosinophils Absolute Auto 100 /uL (0-450); Eosinophils Percent Auto 0.5 % (2-4); Hematocrit 37.3 % (41-53); Hemoglobin 12.7 g/dL (13.5-17.5); Lymphocytes Absolute Auto 1300 /uL (1100-4500); Lymphocytes Percent Auto 10.4 % (25-40); Mean Corpuscular HGB Conc 34.1 % (30-36); Mean Corpuscular Hemoglobin 33.3 PG (26-34); Mean Corpuscular Volume 97.8 fL (80-100); Monocytes Absolute Auto 800 /uL (0-900); Monocytes Percent Auto 6.4 % (3-14); Neutrophils Absolute Auto 10300 /uL (1500-7000); Neutrophils Percent Auto 81.9 % (50-75); Platelet Count 244 X10^3/uL (150-400); Red Blood Cell Count 3.81 X10^6/uL (4.5-5.9); Red Cell Distribution Width 16.9 % (11.6-14.8); White Blood Cell Count 12.6 X10^3/uL (4.5-11.0)
[2020-01-22 10:40] LABS: Alanine Aminotransferase 20 IU/L (<50); Albumin 4.5 g/dL (3.5-5.0); Albumin Globulin Ratio 1.8 (1.0-2.8); Alkaline Phosphatase 51 U/L (38-126); Aspartate Aminotransferase 31 IU/L (17-59); BUN Creatinine Ratio 14.6 (6-22); Bilirubin Total 0.7 mg/dL (0.2-1.3); Blood Urea Nitrogen 13 mg/dL (9-20); Calcium 9.7 mg/dL (8.4-10.2); Carbon Dioxide 28 mmol/L (22-32); Chloride 100 mmol/L (98-107); Estimated Glomerular Filt Rate > 60.0 mL/min (>60); Globulin 2.5 g/dL (1.7-4.1); Glucose 96 mg/dL (80-110); HEMOLYSIS < 15 (0-50); Potassium 3.7 mmol/L (3.4-5.1); Sodium 135 mmol/L (137-145)
[2020-01-22 11:11] VITALS: BP 110/80; PULSE 86; RESP 18; TEMP 36.9; O2SAT 98
[2020-01-22] MEDS: SODIUM CHLORIDE 0.9% 100 ML 21 ML IV (11:44)
[2020-01-22] MEDS: ONDANSETRON 16 MG in SODIUM CHLORIDE 0.9% 50 ML 232 ML IV (12:15)
[2020-01-22] MEDS: LORazepam 0.5 MG TABLET PO (12:18)
[2020-01-22] MEDS: FOSAPREPITANT 150 MG in SODIUM CHLORIDE 0.9% 150 ML 300 ML IV (12:41)
[2020-01-22] MEDS: ATEZOLIZUMAB IV (14:17)
[2020-01-22] MEDS: SODIUM CHLORIDE 0.9% IV ×2 (14:17→15:13)
[2020-01-22] MEDS: CARBOPLATIN IV (15:13)
[2020-01-22] MEDS: ETOPOSIDE 200 MG in NORMAL SALINE (CHEMO IV) 500ML 500 ML 510 ML IV (15:51)
--- NOTE | 2020-01-22 17:09 | PC.NURSE ---
Called [employer] to take pt home and taxi will be in front of the wound center to burr picker pt, pt aware.
[2020-01-23 10:14] VITALS: BP 133/76; PULSE 66; RESP 15; TEMP 36.6; O2SAT 100
[2020-01-23] MEDS: SODIUM CHLORIDE 0.9% 100 ML 21 ML IV (10:38)
[2020-01-23] MEDS: DEXAMETHASONE 10 MG/ML VIAL 8 MG IV (10:38)
[2020-01-23] MEDS: ONDANSETRON 8 MG in SODIUM CHLORIDE 0.9% 50 ML 216 ML IV (10:38)
[2020-01-23] MEDS: SODIUM CHLORIDE 0.9% 500 ML 1000 ML IV (10:50)
[2020-01-23] MEDS: ETOPOSIDE 200 MG in NORMAL SALINE (CHEMO IV) 500ML 500 ML 510 ML IV (11:25)
[2020-01-24 10:02] VITALS: BP 121/75; PULSE 72; RESP 20; TEMP 37.1; O2SAT 98
[2020-01-24] MEDS: SODIUM CHLORIDE 0.9% 500 ML 1000 ML IV (10:45)
[2020-01-24] MEDS: ONDANSETRON 8 MG in SODIUM CHLORIDE 0.9% 50 ML 216 ML IV (11:05)
[2020-01-24] MEDS: ETOPOSIDE 200 MG in NORMAL SALINE (CHEMO IV) 500ML 500 ML 510 ML IV (11:33)
--- NOTE | 2020-01-24 16:46 | ONC.SCHED ---
Left msg. for patient regarding CT scan. Let him know that he will come here at 10AM 01/29/20 for labs and port access for CT. Then he will check in at 12PM for CT to start drinking oral contrast. I left msg. for patient to have nothing to eat or drink after 9:30AM per radiology. Asked patient to call back if he has any questions. This was the only CT scan time that would make sense for this day.
--- NOTE | 2020-01-29 10:03 | ONC.MSW ---
Description: T/C re: transportation Activity: FLAT KNITTER HELPER called pt to clarify whether or not he needs transportatio for his appt. today. He states that he already has a friend to take him both ways. Discussed Medicaid application process. FLAT KNITTER HELPER will call him back later and provide the phone number for him to call and apply over the phone. Next step will be referral to dentist who accepts Medicaid.
--- NOTE | 2020-01-30 08:42 | PC.NURSE ---
This RN called pt to coordinate a time for [facility] lab draw. Pt expressed frustration with CT staff who told him labs were not required when he came in yesterday for imaging, those mother carmen told me I didn't have to have any lab draws. This RN recalled plan of care that was established with pt on , 01/23; he was to come to cancer clinic prior to CT for post Chemo labs and then head to imaging for CT. Pt states yeah, hell I know. That's what I usually do after I get chemo, but shit- they said I didn't the labs. This RN attempted to provided clarification between labs that are required for CT and labs that are needed for post chemo monitoring, pt states Whatever, I ain't coming in today, I can't, not with this weather and my boat. Pt declines lab draw rescheduling. Pt denies chest pain and SOB, denies N/V, reports eating okay. Per pt, constipation has resolved. Denies dizziness and lightheadedness. Pt reports the first day or so after chemo was really bad, Alfred (patient's friend) had to come sit with me. However, pt reports those symptoms have now completely resolved, hell, I feel better that I ever have since I started this shit. Pt agrees to notify clinic with any changes.
[2020-01-31 15:16] LABS: Testosterone 7.43 ng/dL (71.8-623)
[2020-01-31 16:47] LABS: Add Manual Diff / Slide Review NO; Basophils Absolute Auto 0 /uL (0-100); Basophils Percent Auto 0.7 % (0-2); Eosinophils Absolute Auto 0 /uL (0-450); Eosinophils Percent Auto 0.4 % (2-4); Hematocrit 34.4 % (41-53); Hemoglobin 12.1 g/dL (13.5-17.5); Lymphocytes Absolute Auto 900 /uL (1100-4500); Lymphocytes Percent Auto 19.3 % (25-40); Mean Corpuscular HGB Conc 35.3 % (30-36); Mean Corpuscular Hemoglobin 33.8 PG (26-34); Mean Corpuscular Volume 95.7 fL (80-100); Monocytes Absolute Auto 200 /uL (0-900); Monocytes Percent Auto 4.5 % (3-14); Neutrophils Absolute Auto 3600 /uL (1500-7000); Neutrophils Percent Auto 75.1 % (50-75); Platelet Count 164 X10^3/uL (150-400); Red Blood Cell Count 3.59 X10^6/uL (4.5-5.9); Red Cell Distribution Width 16.9 % (11.6-14.8); White Blood Cell Count 4.8 X10^3/uL (4.5-11.0)
[2020-01-31 16:52] LABS: Alanine Aminotransferase 22 IU/L (<50); Albumin 4.3 g/dL (3.5-5.0); Albumin Globulin Ratio 1.9 (1.0-2.8); Alkaline Phosphatase 53 U/L (38-126); Aspartate Aminotransferase 24 IU/L (17-59); BUN Creatinine Ratio 13.4 (6-22); Bilirubin Total 0.7 mg/dL (0.2-1.3); Blood Urea Nitrogen 11 mg/dL (9-20); Calcium 9.8 mg/dL (8.4-10.2); Carbon Dioxide 29 mmol/L (22-32); Chloride 98 mmol/L (98-107); Estimated Glomerular Filt Rate > 60.0 mL/min (>60); Globulin 2.3 g/dL (1.7-4.1); Glucose 118 mg/dL (80-110); HEMOLYSIS < 15 (0-50); Potassium 4.6 mmol/L (3.4-5.1); Sodium 136 mmol/L (137-145); Total Protein 6.6 g/dL (6.3-8.2)
--- NOTE | 2020-02-06 12:23 | PC.NURSE ---
Transportation and appt: Pt called to request assistance with transportation to appt tomorrow morning. This RN spoke with Sharmin Rizo and Sharmin Rizo will coordinate transportation for pt.
--- NOTE | 2020-02-07 09:37 | ONC.PN ---
PN -Subjective Interval history: ID/CC: 64 year old with metastatic prostate cancer, and small cell lung cancer HPI Rylan Yeung is a 64 year old male. He has been drinking whisky for 50 years. He said he drinks like fish. He also admit to heaving smoking since 14 yeas old. He smokes 3 ppd. He has no intention to quit at present Mr. Yeung was diagnosed with GS 4+4 prostate cancer by TRUS prostate biopsy on 07/24/2015. His initial presentation was urge incontinence and penile nodule. Workup including CT chest on that showed a small right lung nodules and follow up CT in 12 months recommended. On 08/27/2015, he was started on Lupron 30 mg after taking casodex for 4-6 weeks. Bone scan was suspicious for possible metastasis. Follow up CT on 11/29/2016 showed mild interval increase in size of heterogeneous pre-sacral lobulated mass, likely high pelvic adenopathy, stable left adrenal mass measuring 3.4 x 3.7 cm, mild sigmoid colon wall thickening in the region of the presacral mass, and relatively stable areas of sclerosis within the T12 and L2 vertebral bodies. Stable sclerosis of the posterior right ninth rib. No clearly new sclerotic lesions are seen. Bone scan 11/29/2016 showed multiple areas of activity suspicious for metastatic disease.The right intertrochanteric region of activity/metastases has increased significantly in size. He then underwent radiation to the sarcum/right proximal femur from 12/15/2016 to 12/21/2016 at 500 cGy per fraction for 5 fractions to a total of 2500 cGy. He was started on Abiraterone + prednisone started 12/07/16. Then in 06/2017, he was started on Xtandi. His recent treatment his prostate cancer is not clear. Apparent, it has been no hold after he moved to [facility]. About end of 2018 (4-5 months ago), he developed right upper quadrant abdominal pain, that felt like bruised and bad, 8-10/10 in intensity, and constant. Eating does not worsen the pain. No associated nausea or vomiting. He also reports constipation with intermittent diarrhea. He reports tarry black stool at the time. But he did not seek medical care. At times, when RUQ pain quits, he notices right rib pain. He denies cough, and denies headache. His weight has been stable. On 07/05/2019, he visited ER for the abdominal pain that was hurting really bad. He underwent CT chest, abdomen and pelvis that showed a 1.8 cm lobulated/spiculated mass in the right upper lobe, a 1.6 cm diameter right hilar lymph node, a 5 mm indeterminate hepatic hypodensity in the anterior segment of the right hepatic lobe, a 3.7 x 4.3 cm mass just below that of left adrenal gland, thickening of the distal sigmoid colon and rectum, enlarged prostate, and sclerotic appearance of the posterior right ninth rib with associated soft tissue mass, mild expansile appearance of the right 10th rib. Liver and spleen were reportedly normal. On 08/15/2019, patient underwent PET scan. The PET scan showed lucent focus within the left middle cranial fossa which could be further assessed with brain MRI with and without intravenous contrast, malignant appearing uptake within the right upper lobe and right hilum, metastasis to the right ninth rib, hypermetabolic foci within the rectum and the subtending inferior mesenteric vein, left adrenal adenoma and infrarenal abdominal aortic ectasia. On 08/21/2019, I started the patient on androgen deprivation therapy with Lupron 22.5 mg subcutaneous every 3 months. Meanwhile patient also started taking casodex 50 mg once a day with plan for about a month to prevent PSA flare. Patient said that he has tolerated well. Since his previous visit, Dr. Estrada performed colonoscopy. Biopsy from a polyp at 25 cm was negative for dysplasia or malignancy. However biopsy from polyp at 15 cm showed colonic mucosa with metastatic prostate adenocarcinoma. On 08/21/2019, Dr. Avelino Chowdhury did a telephone encounter. Dr. Chowdhury thought that the lung lesion did appear to be amenable to bronchoscopic biopsy, but was not able to perform elective bronchoscopy due to the COVID-19 risk of aerosolization. As a result Dr. Chowdhury recommended CT-guided biopsy of the right posterior chest wall lesion. On 08/31/2019, patient underwent CT biopsy of right ninth rib lesion by Dr. Zechariah Bowles. The final pathology showed small cell lung cancer. On 10/15/2019, patient underwent placement of left subclavian Port-A-Cath by Dr. Wilbur Estrada. On 10/22/2019, he was started on chemotherapy with carbo/etop/atezolizumab. Interval History He presents today for scheduled follow up visit. On 01/24/2020, he completed 4 cycles of carboplatin/etoposide/atezolizumab. He has tolerated well. He said he has never had any respiratory problems. He is complaining worsening anorectal pain and leaks. The pain is persistent, 10/10 in severity. No blood. He is only using ibuprofen. The pain can decrease to 8/10. He is also complaining right lower to rib pain especially when he lies on the right side for He did not like hydrocodone that makes his brain not functional. He used to use morphine, and tolerated well. Treatment Summary: 1. Lupron, started 08/27/2015 - ? 2. Radiation to sacrum/right proximal femur, 12/15/2016 - 12/21/2016 3. Abiraterone + prednisone, 12/07/16 - ? 4. Xtandi, started in 06/2017 - ? 5. Lupron 22.5 mg q3m, started on 08/21/2019 - 6. Carbo/Etop/Atezo x 4 cycles: 10/22/2019 - 01/24/2020 - Patient Self-Reported Symptoms SR Constitution: Fatigue/Malaise SR ears, nose, mouth, throat issues: Ears ringing SR Cardiovascular issues: Shortness of breath with activity or lying flat, Dizzy/lightheaded SR Gastrointestinal issues: Poor or no appetite, Change in bowel pattern, Diarrhea, Constipation, Black/tarry stool, Abdominal pain SR Musculoskeletal issues: Muscle weakness SR Neuro issues: Lightheaded/dizzy SR Hematologic issues: Slow healing SR Endocrine issues: Cold intolerance, Heat intolerance, Hot flashes - Additional ROS All systems PM: reviewed and no additional remarkable complaints except as stated Home Medications and Allergies Home Medications Medication Instructions Recorded Confirmed Type lisinopril 20 mg PO DAILY #30 tab 09/03/19 11/12/19 Rx hydrocodone-acetaminophen [Divide] 1 tab PO Q4H PRN #10 tab 10/15/19 11/12/19 Rx ondansetron HCl [Zofran] 4 mg PO Q6H PRN 10/25/19 11/12/19 History dicyclomine 20 mg PO QID PRN #20 tab 11/10/19 11/12/19 Rx loperamide 2 mg PO Q4H PRN #20 cap 11/10/19 11/12/19 Rx ondansetron HCl [Zofran] 4 mg PO Q6H PRN #20 tab 11/10/19 11/12/19 Rx triamcinolone acetonide 1 applictn TOP TID #454 gram 11/10/19 11/12/19 Rx bicalutamide [Casodex] 50 mg PO DAILY #100 tab 02/04/20 Rx dexamethasone 2 mg PO DAILY #21 tab 02/07/20 Rx morphine 30 mg PO Q6H PRN #120 tab 02/07/20 Rx prednisone 5 mg PO BID #60 ea 02/07/20 Rx Allergies Allergy/AdvReac Type Severity Reaction Status Date / Time No Known Drug Allergies Allergy Verified 11/20/19 12:14 Exam Vital signs: 02/07/20 22:59 Last Vital Signs Temp 97.5 F L 02/07/20 09:41 Pulse 79 02/07/20 09:41 Resp 18 02/07/20 09:41 BP 122/75 02/07/20 09:41 Pulse Ox 99 02/07/20 09:41 Narrative: ECOG 1 Vitals above reviewed Constitutional: WDWN, well nourished, and well groomed. NAD. Pleasant and cooperative. HEENT: NCAT, EOMI, PERRLA, anicteric sclera. Neck: Supple and symmetrical. No palpable thyromegaly or lymphadenopathy. No palpable masses. Respiratory: No use of accessory muscles, no wheezes. Cardiovascular: RRR, S1 and S2 normal, no M/G/R. No edema of lower extremities. Abdomen: Soft, mild mid abdominal tenderness, no palpable hepatosplenomegaly Lymphatic: no palpable palpable lymph nodes in the neck, or axillae. Musculoskeletal: normal gait and station Neurological: AOx3, CN II-XII grossly intact. No focal motor or sensory deficit. Psychiatric: AOx3, normal memory (recent and remote), normal mood and affect. Results - Labs Laboratory Last Values WBC Cancelled 02/07/20 09:30 RBC Cancelled 02/07/20 09:30 Hgb Cancelled 02/07/20 09:30 Hct Cancelled 02/07/20 09:30 MCV Cancelled 02/07/20 09:30 MCH Cancelled 02/07/20 09:30 MCHC Cancelled 02/07/20 09:30 RDW Cancelled 02/07/20 09:30 Plt Count Cancelled 02/07/20 09:30 Neut % (Auto) Cancelled 02/07/20 09:30 Lymph % (Auto) Cancelled 02/07/20 09:30 Terrell % (Auto) Cancelled 02/07/20 09:30 Eos % (Auto) Cancelled 02/07/20 09:30 Baso % (Auto) Cancelled 02/07/20 09:30 Neut # (Auto) Cancelled 02/07/20 09:30 Lymph # (Auto) Cancelled 02/07/20 09:30 Terrell # (Auto) Cancelled 02/07/20 09:30 Eos # (Auto) Cancelled 02/07/20 09:30 Baso # (Auto) Cancelled 02/07/20 09:30 Total Counted 100 11/12/19 11:40 Seg Neutrophils % 35.0 % (38-70) L 11/12/19 11:40 Band Neutrophils % 4.0 % (3-7) 11/12/19 11:40 Lymphocytes % (Manual) 38.0 % (25-45) 11/12/19 11:40 Atypical Lymphs % 1.0 % (-0) H 11/12/19 11:40 Monocytes % (Manual) 14.0 % (2-11) H 11/12/19 11:40 Eosinophils % (Manual) 2.0 % (2-4) 11/12/19 11:40 Metamyelocytes % 2.0 % (-0) H 11/12/19 11:40 Myelocytes % 4.0 % (-0) H 11/12/19 11:40 Neutrophils # (Manual) 1638 /uL (2813-7127) L 11/12/19 11:40 RBC Morphology Not Reportable 12/10/19 11:00 Anisocytosis 2+ H 12/10/19 11:00 Ovalocytes 2+ H 12/10/19 11:00 Sodium Cancelled 02/07/20 09:30 Potassium Cancelled 02/07/20 09:30 Chloride Cancelled 02/07/20 09:30 Carbon Dioxide Cancelled 02/07/20 09:30 BUN Cancelled 02/07/20 09:30 Creatinine Cancelled 02/07/20 09:30 Estimated GFR Cancelled 02/07/20 09:30 BUN/Creatinine Ratio Cancelled 02/07/20 09:30 Glucose Cancelled 02/07/20 09:30 Calcium Cancelled 02/07/20 09:30 Magnesium 2.1 mg/dL (1.6-2.3) 10/27/19 13:48 Total Bilirubin Cancelled 02/07/20 09:30 AST Cancelled 02/07/20 09:30 ALT Cancelled 02/07/20 09:30 Alkaline Phosphatase Cancelled 02/07/20 09:30 Total Protein Cancelled 02/07/20 09:30 Albumin Cancelled 02/07/20 09:30 Globulin Cancelled 02/07/20 09:30 Albumin/Globulin Ratio Cancelled 02/07/20 09:30 Alpha Fetoprotein 2.4 ng/mL (0.0-8.3) 08/15/19 13:39 Carcinoembryonic Ag 12.1 ng/mL (0.1-3.0) H 08/15/19 13:39 Prostate Specific Ag Cancelled 02/07/20 09:30 Testosterone Level 7.43 ng/dL (71.8-623) L 01/31/20 14:03 Ref Test (Refrig) Comment (.) 01/31/20 14:03 Assessment and Plan (1) Prostate cancer Overview: GS 4+4 prostate cancer by TRUS prostate biopsy on 07/24/2015. Initial imaging studies showed possible bone metastasis. Throughout these years, patient has received Lupron, Casodex, abiraterone, and Xtandi, but not consistently. He also had radiation therapy in 2017 to the pre-sacral and right proximal femur. Colonoscopy with biopsy on 08/29/2019 showed colonic metastasis of the prostate cancer. Patient resumed ADT on 08/21/2019. Assessment As far as the prostate cancer is concerned, patient has significant symptoms from the direct invasion to the rectum. This was biopsy-proven. Patient has significant pain and also leakage. However he only uses ibuprofen. I prescribed hydrocodone which he did not like because it causes brain problems. He used to use morphine which he tolerated well. I talked with him that I would recommend that we switch to morphine and see if that could be more helpful. Patient agrees. Today we mainly discussed about the treatment of prostate cancer. I talked with him that he has already received treatment including Xtandi and abiraterone. I recommended that we try chemotherapy with docetaxel. Explained to the patient that some patients respond very well to the chemotherapy with significant pain and symptomatic relief. Patient eventually understood and expressed willingness to move forward. Plan: Continue Lupron 22.5 mg im q3m, next due 02/04/2020. Continue Casodex 50 mg daily Start morphing 30 mg q6h prn Docetaxel 75 mg/m2 with prednisone 5 mg bid, C1D1: 02/14/2020. (2) Small cell lung cancer Overview: 64-year-old gentleman with lifelong history of heavy smoking and alcohol abuse. On 07/05/2019, he was found to have a 1.8 cm lobulated/spiculated mass in the right upper lobe and a 1.6 cm diameter right hilar lymph node on CT scan during an ER visit for abdominal pain. The CT also showed 5 mm indeterminate hepatic hypodensity in the anterior segment of the right hepatic lobe, a 3.7 x 4.3 cm mass just below that of left adrenal gland, thickening of the distal sigmoid colon and rectum, enlarged prostate, and sclerotic appearance of the posterior right ninth rib with associated soft tissue mass, mild expansile appearance of the right 10th rib. Liver and spleen were reportedly normal. On 08/15/2019, PET scan showed lucent focus within the left middle cranial fossa, malignant appearing uptake within the right upper lobe and right hilum, metastasis to the right ninth rib, hypermetabolic foci within the rectum and the subtending inferior mesenteric vein, left adrenal adenoma and infrarenal abdominal aortic ectasia. Assessment: He has completed 4 cycles of carbo/etop/atezolizumab. Overall, he has tolerated well. I will now switched to maintenance Atezolizumab every 21 days starting next Plan: RTC in 1 weeks for C1# maintenance Atezolizumab (3) Port-A-Cath in place Flush every 4-6 weeks
[2020-02-07 09:41] VITALS: BP 122/75; PULSE 79; RESP 18; TEMP 36.4; O2SAT 99
[2020-02-07] MEDS: LEUPROLIDE DEPOT [ELIGARD] 22.5 MG SYR SUBCUT (11:01)
--- NOTE | 2020-02-07 11:13 | PC.NURSE ---
NEW TX/TAXOTERE: REVIEWED WITH PATIENT THE POSSIBLE SIDE EFFECTS AND WHEN TO GET EMERGENCY CARE PER [employer] INSTRUCTIONS FOR TAXOTERE. PATIENT DECLINED TO TAKE WRITTEN INFORMATIOIN WITH HIM AND STATED THAT HE WOULD CALL IF FEELING WORSE IN ANY WAY.
--- NOTE | 2020-02-11 11:35 | ONC.SCHED ---
Spoke with patient to give next appointment. Told him 8:50 check-in on 02/14/2020. He understands that this is for chemo. He said he'd try to remember. I told him to give us a call if he doesn't remember the time.
[2020-02-14 09:21] VITALS: BP 116/70; PULSE 69; RESP 16; TEMP 36.8; O2SAT 99
[2020-02-14 09:25] LABS: Hematocrit 32.6 % (41-53); Hemoglobin 11.4 g/dL (13.5-17.5); Mean Corpuscular HGB Conc 34.9 % (30-36); Mean Corpuscular Hemoglobin 33.8 PG (26-34); Mean Corpuscular Volume 96.8 fL (80-100); Platelet Count 239 X10^3/uL (150-400); Red Blood Cell Count 3.37 X10^6/uL (4.5-5.9); Red Cell Distribution Width 17.7 % (11.6-14.8); White Blood Cell Count 11.1 X10^3/uL (4.5-11.0)
[2020-02-14 09:26] LABS: Add Manual Diff / Slide Review YES
[2020-02-14 09:30] LABS: Alanine Aminotransferase 18 IU/L (<50); Albumin 4.1 g/dL (3.5-5.0); Albumin Globulin Ratio 1.7 (1.0-2.8); Alkaline Phosphatase 55 U/L (38-126); Aspartate Aminotransferase 27 IU/L (17-59); BUN Creatinine Ratio 19.8 (6-22); Bilirubin Total 0.5 mg/dL (0.2-1.3); Blood Urea Nitrogen 16 mg/dL (9-20); Carbon Dioxide 29 mmol/L (22-32); Chloride 102 mmol/L (98-107); Estimated Glomerular Filt Rate > 60.0 mL/min (>60); Globulin 2.4 g/dL (1.7-4.1); Glucose 99 mg/dL (80-110); HEMOLYSIS < 15 (0-50); Potassium 4.1 mmol/L (3.4-5.1); Sodium 135 mmol/L (137-145); Total Protein 6.5 g/dL (6.3-8.2)
[2020-02-14 09:52] LABS: Anisocytosis 1+; Neutrophils Absolute Manual 7437 /uL (3000-5900); Total Cells Counted 100
[2020-02-14 09:59] LABS: Prostate Specific Antigen 56.6 ng/mL (0.10-4.00)
[2020-02-14 10:10] LABS: Thyroid Stimulating Hormone 0.492 uIU/mL (0.47-4.68)
[2020-02-14] MEDS: DEXAMETHASONE 10 MG/ML VIAL 8 MG IV (10:33)
[2020-02-14] MEDS: ONDANSETRON 8 MG in SODIUM CHLORIDE 0.9% 50 ML 216 ML IV (10:53)
[2020-02-14] MEDS: SODIUM CHLORIDE 0.9% 100 ML 21 ML IV (10:58)
--- NOTE | 2020-02-14 11:05 | ONC.MSW ---
Description: [facility] Forms Activity: Reviewed the Medicaid forms that pt brought in. He currently does not qualify for Medicaid without spending down $441/month through 06/09/20, meaning this has to be medical bills or medical costs, which he currently doesn't pay anything out of pocket for. He did qualify for food stamps. CENTR[employer] SEPARATOR TENDER had pt sign the declaration that they sent to him in order to complete the application process. Faxed to [facility].
[2020-02-14] MEDS: ATEZOLIZUMAB IV (11:31)
[2020-02-14] MEDS: SODIUM CHLORIDE 0.9% IV (11:31)
[2020-02-14] MEDS: DOCETAXEL IV (12:49)
[2020-02-14] MEDS: SODIUM CHLORIDE EXCEL IV (12:49)
--- NOTE | 2020-02-14 16:58 | PC.NURSE ---
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 Education reiterated to take 5mg twice a day for 21 days, pt states yeah, i will.
--- NOTE | 2020-02-19 08:51 | ONC.SCHED ---
Received notification that Prednisone 5mg tablet is approved from 01/19/2020 - 02/18/2023 .
[2020-02-21 15:16] LABS: Hematocrit 31.6 % (41-53); Hemoglobin 11.1 g/dL (13.5-17.5); Mean Corpuscular HGB Conc 35.3 % (30-36); Mean Corpuscular Hemoglobin 33.6 PG (26-34); Mean Corpuscular Volume 95.2 fL (80-100); Platelet Count 212 X10^3/uL (150-400); Red Blood Cell Count 3.32 X10^6/uL (4.5-5.9); Red Cell Distribution Width 17.2 % (11.6-14.8); White Blood Cell Count 5.6 X10^3/uL (4.5-11.0)
[2020-02-21 15:22] LABS: Alanine Aminotransferase 19 IU/L (<50); Albumin Globulin Ratio 1.8 (1.0-2.8); Alkaline Phosphatase 52 U/L (38-126); Aspartate Aminotransferase 26 IU/L (17-59); BUN Creatinine Ratio 22.2 (6-22); Bilirubin Total 0.5 mg/dL (0.2-1.3); Blood Urea Nitrogen 22 mg/dL (9-20); Calcium 9.1 mg/dL (8.4-10.2); Carbon Dioxide 31 mmol/L (22-32); Chloride 99 mmol/L (98-107); Estimated Glomerular Filt Rate > 60.0 mL/min (>60); Globulin 2.2 g/dL (1.7-4.1); Glucose 85 mg/dL (80-110); HEMOLYSIS < 15 (0-50); Potassium 3.8 mmol/L (3.4-5.1); Sodium 131 mmol/L (137-145); Total Protein 6.2 g/dL (6.3-8.2)
[2020-02-21 15:29] LABS: Add Manual Diff / Slide Review YES
[2020-02-21 16:02] LABS: Neutrophils Absolute Manual 3192 /uL (3000-5900); Nucleated Red Blood Cells 1 #/Diff; Total Cells Counted 100
[2020-02-21 16:03] LABS: Anisocytosis 2+; Polychromasia 1+
--- NOTE | 2020-02-22 08:59 | P.PNONC_ITS ---
PN -Subjective Interval history: This is note for clinic visit on 02/14/2020. ID/CC: 64 year old with metastatic prostate cancer, and small cell lung cancer HPI Rylan Yeung is a 64 year old male. He has been drinking whisky for 50 years. He said he drinks like fish. He also admit to heaving smoking since 14 yeas old. He smokes 3 ppd. He has no intention to quit at present Mr. Yeung was diagnosed with GS 4+4 prostate cancer by TRUS prostate biopsy on 07/24/2015. His initial presentation was urge incontinence and penile nodule. Workup including CT chest on that showed a small right lung nodules and follow up CT in 12 months recommended. On 08/27/2015, he was started on Lupron 30 mg after taking casodex for 4-6 weeks. Bone scan was suspicious for possible metastasis. Follow up CT on 11/29/2016 showed mild interval increase in size of heterogeneous pre-sacral lobulated mass, likely high pelvic adenopathy, stable left adrenal mass measuring 3.4 x 3.7 cm, mild sigmoid colon wall thickening in the region of the presacral mass, and relatively stable areas of sclerosis within the T12 and L2 vertebral bodies. Stable sclerosis of the posterior right ninth rib. No clearly new sclerotic lesions are seen. Bone scan 11/29/2016 showed multiple areas of activity suspicious for metastatic disease.The right intertrochanteric region of activity/metastases has increased significantly in size. He then underwent radiation to the sarcum/right proximal femur from 12/15/2016 to 12/21/2016 at 500 cGy per fraction for 5 fractions to a total of 2500 cGy. He was started on Abiraterone + prednisone started 12/07/16. Then in 06/2017, he was started on Xtandi. His recent treatment his prostate cancer is not clear. Apparent, it has been no hold after he moved to [facility]. About end of 2018 (4-5 months ago), he developed right upper quadrant abdominal pain, that felt like bruised and bad, 8-10/10 in intensity, and constant. Eating does not worsen the pain. No associated nausea or vomiting. He also reports constipation with intermittent diarrhea. He reports tarry black stool at the time. But he did not seek medical care. At times, when RUQ pain quits, he notices right rib pain. He denies cough, and denies headache. His weight has been stable. On 07/05/2019, he visited ER for the abdominal pain that was hurting really bad. He underwent CT chest, abdomen and pelvis that showed a 1.8 cm lobulated/spiculated mass in the right upper lobe, a 1.6 cm diameter right hilar lymph node, a 5 mm indeterminate hepatic hypodensity in the anterior segment of the right hepatic lobe, a 3.7 x 4.3 cm mass just below that of left adrenal gland, thickening of the distal sigmoid colon and rectum, enlarged prostate, and sclerotic appearance of the posterior right ninth rib with associated soft tissue mass, mild expansile appearance of the right 10th rib. Liver and spleen were reportedly normal. On 08/15/2019, patient underwent PET scan. The PET scan showed lucent focus within the left middle cranial fossa which could be further assessed with brain MRI with and without intravenous contrast, malignant appearing uptake within the right upper lobe and right hilum, metastasis to the right ninth rib, hypermetabolic foci within the rectum and the subtending inferior mesenteric vein, left adrenal adenoma and infrarenal abdominal aortic ectasia. On 08/21/2019, I started the patient on androgen deprivation therapy with Lupron 22.5 mg subcutaneous every 3 months. Meanwhile patient also started taking casodex 50 mg once a day with plan for about a month to prevent PSA flare. Patient said that he has tolerated well. Since his previous visit, Dr. Estrada performed colonoscopy. Biopsy from a polyp at 25 cm was negative for dysplasia or malignancy. However biopsy from polyp at 15 cm showed colonic mucosa with metastatic prostate adenocarcinoma. On 08/21/2019, Dr. Avelino Chowdhury did a telephone encounter. Dr. Chowdhury thought that the lung lesion did appear to be amenable to bronchoscopic biopsy, but was not able to perform elective bronchoscopy due to the COVID-19 risk of aerosolization. As a result Dr. Chowdhury recommended CT-guided biopsy of the right posterior chest wall lesion. On 08/31/2019, patient underwent CT biopsy of right ninth rib lesion by Dr. Zechariah Bowles. The final pathology showed small cell lung cancer. On 10/15/2019, patient underwent placement of left subclavian Port-A-Cath by Dr. Wilbur Estrada. On 10/22/2019, he was started on chemotherapy with carbo/etop/atezolizumab. On 01/24/2020, he completed 4 cycles of carboplatin/etoposide/atezolizumab. Interval History He presents today for scheduled Cycle 1# Docetaxle. He is also scheduled for Atezolizumab. Clinically, he is still complaining of worsening anorectal pain and leaks, 10/10 on pain scale. He denies fever or chills Denies nausea or vomiting. Treatment Summary: 1. Lupron, started 08/27/2015 - ? 2. Radiation to sacrum/right proximal femur, 12/15/2016 - 12/21/2016 3. Abiraterone + prednisone, 12/07/16 - ? 4. Xtandi, started in 06/2017 - ? 5. Lupron 22.5 mg q3m, started on 08/21/2019 - 6. Carbo/Etop/Atezo x 4 cycles: 10/22/2019 - 01/24/2020 - Patient Self-Reported Symptoms SR Constitution: Fatigue/Malaise SR ears, nose, mouth, throat issues: Ears ringing SR Cardiovascular issues: Shortness of breath with activity or lying flat, Dizzy/lightheaded SR Gastrointestinal issues: Poor or no appetite, Change in bowel pattern, Diarrhea, Constipation, Black/tarry stool, Abdominal pain SR Musculoskeletal issues: Muscle weakness SR Neuro issues: Lightheaded/dizzy SR Hematologic issues: Slow healing SR Endocrine issues: Cold intolerance, Heat intolerance, Hot flashes - Additional ROS All systems PM: reviewed and no additional remarkable complaints except as stated Home Medications and Allergies Home Medications Medication Instructions Recorded Confirmed Type lisinopril 20 mg PO DAILY #30 tab 09/03/19 11/12/19 Rx hydrocodone-acetaminophen [[place]] 1 tab PO Q4H PRN #10 tab 10/15/19 11/12/19 Rx ondansetron HCl [Zofran] 4 mg PO Q6H PRN 10/25/19 11/12/19 History dicyclomine 20 mg PO QID PRN #20 tab 11/10/19 11/12/19 Rx loperamide 2 mg PO Q4H PRN #20 cap 11/10/19 11/12/19 Rx ondansetron HCl [Zofran] 4 mg PO Q6H PRN #20 tab 11/10/19 11/12/19 Rx triamcinolone acetonide 1 applictn TOP TID #454 gram 11/10/19 11/12/19 Rx bicalutamide [Casodex] 50 mg PO DAILY #100 tab 02/04/20 Rx dexamethasone 2 mg PO DAILY #21 tab 02/07/20 Rx morphine 30 mg PO Q6H PRN #120 tab 02/07/20 Rx prednisone 5 mg PO BID #60 ea 02/07/20 Rx prednisone 5 mg PO BID #100 tab 02/14/20 Rx prednisone 5 mg PO BID #60 ea 02/14/20 Rx Allergies Allergy/AdvReac Type Severity Reaction Status Date / Time No Known Drug Allergies Allergy Verified 11/20/19 12:14 Exam Vital signs: Last Vital Signs Temp 98.3 F 02/14/20 09:21 Pulse 69 02/14/20 09:21 Resp 16 02/14/20 09:21 BP 116/70 02/14/20 09:21 Pulse Ox 99 02/14/20 09:21 Narrative: ECOG 1 Vitals above reviewed Constitutional: WDWN, well nourished, and well groomed. NAD. Pleasant and cooperative. HEENT: NCAT, EOMI, PERRLA, anicteric sclera. Neck: Supple and symmetrical. No palpable thyromegaly or lymphadenopathy. No palpable masses. Respiratory: No use of accessory muscles, no wheezes. Cardiovascular: RRR, S1 and S2 normal, no M/G/R. No edema of lower extremities. Abdomen: Soft, mild mid abdominal tenderness, no palpable hepatosplenomegaly Lymphatic: no palpable palpable lymph nodes in the neck, or axillae. Musculoskeletal: normal gait and station Neurological: AOx3, CN II-XII grossly intact. No focal motor or sensory deficit. Psychiatric: AOx3, normal memory (recent and remote), normal mood and affect. Results - Labs Labs from 02/14/2020 were reviewed. Assessment and Plan (1) Prostate cancer Overview: GS 4+4 prostate cancer by TRUS prostate biopsy on 07/24/2015. Initial imaging studies showed possible bone metastasis. Throughout these years, patient has received Lupron, Casodex, abiraterone, and Xtandi, but not consistently. He also had radiation therapy in 2017 to the pre-sacral and right proximal femur. Colonoscopy with biopsy on 08/29/2019 showed colonic metastasis of the prostate cancer. Patient resumed ADT on 08/21/2019. Assessment I talked with him briefly about the complications of chemotherapy. I emphasized the possibility of low blood counts. I talked with him that it is important for him to keep us informed. He voiced understanding. I reviewed CBC/CMP from today. They are appropriate. I will proceed to scheduled chemotherapy. Plan: Continue Lupron 22.5 mg im q3m, next due 02/04/2020. Continue Casodex 50 mg daily Ok to proceed to Docetaxel 75 mg/m2 Start prednisone 5 mg bid, C1D1: 02/14/2020. Continue morphing 30 mg q6h prn CBC/CMP on C1D8, will follow the result. RTC on C2D1, labs per protocol. (2) Small cell lung cancer Overview: 64-year-old gentleman with lifelong history of heavy smoking and alcohol abuse. On 07/05/2019, he was found to have a 1.8 cm lobulated/spiculated mass in the right upper lobe and a 1.6 cm diameter right hilar lymph node on CT scan during an ER visit for abdominal pain. The CT also showed 5 mm indeterminate hepatic hypodensity in the anterior segment of the right hepatic lobe, a 3.7 x 4.3 cm mass just below that of left adrenal gland, thickening of the distal sigmoid colon and rectum, enlarged prostate, and sclerotic appearance of the posterior right ninth rib with associated soft tissue mass, mild expansile appearance of the right 10th rib. Liver and spleen were reportedly normal. On 08/15/2019, PET scan showed lucent focus within the left middle cranial fossa, malignant appearing uptake within the right upper lobe and right hilum, metastasis to the right ninth rib, hypermetabolic foci within the rectum and the subtending inferior mesenteric vein, left adrenal adenoma and infrarenal abdominal aortic ectasia. Assessment: He has completed 4 cycles of carbo/etop/atezolizumab. Overall, he has tolerated well. I will now switched to maintenance Atezolizumab every 21 days. Plan: Ok to proceed to C1# maintenance Atezolizumab (3) Port-A-Cath in place Flush every 4-6 weeks
[2020-03-06 09:43] VITALS: BP 130/70; PULSE 95; RESP 22; TEMP 36.8; O2SAT 95
--- NOTE | 2020-03-06 09:44 | ONC.PN ---
PN -Subjective Interval history: This is note for clinic visit on 02/14/2020. ID/CC: 64 year old with metastatic prostate cancer, and small cell lung cancer HPI Rylan Yeung is a 64 year old male. He has been drinking whisky for 50 years. He said he drinks like fish. He also admit to heaving smoking since 14 yeas old. He smokes 3 ppd. He has no intention to quit at present Mr. Yeung was diagnosed with GS 4+4 prostate cancer by TRUS prostate biopsy on 07/24/2015. His initial presentation was urge incontinence and penile nodule. Workup including CT chest on that showed a small right lung nodules and follow up CT in 12 months recommended. On 08/27/2015, he was started on Lupron 30 mg after taking casodex for 4-6 weeks. Bone scan was suspicious for possible metastasis. Follow up CT on 11/29/2016 showed mild interval increase in size of heterogeneous pre-sacral lobulated mass, likely high pelvic adenopathy, stable left adrenal mass measuring 3.4 x 3.7 cm, mild sigmoid colon wall thickening in the region of the presacral mass, and relatively stable areas of sclerosis within the T12 and L2 vertebral bodies. Stable sclerosis of the posterior right ninth rib. No clearly new sclerotic lesions are seen. Bone scan 11/29/2016 showed multiple areas of activity suspicious for metastatic disease.The right intertrochanteric region of activity/metastases has increased significantly in size. He then underwent radiation to the sarcum/right proximal femur from 12/15/2016 to 12/21/2016 at 500 cGy per fraction for 5 fractions to a total of 2500 cGy. He was started on Abiraterone + prednisone started 12/07/16. Then in 06/2017, he was started on Xtandi. His recent treatment his prostate cancer is not clear. Apparent, it has been no hold after he moved to [facility]. About end of 2018 (4-5 months ago), he developed right upper quadrant abdominal pain, that felt like bruised and bad, 8-10/10 in intensity, and constant. Eating does not worsen the pain. No associated nausea or vomiting. He also reports constipation with intermittent diarrhea. He reports tarry black stool at the time. But he did not seek medical care. At times, when RUQ pain quits, he notices right rib pain. He denies cough, and denies headache. His weight has been stable. On 07/05/2019, he visited ER for the abdominal pain that was hurting really bad. He underwent CT chest, abdomen and pelvis that showed a 1.8 cm lobulated/spiculated mass in the right upper lobe, a 1.6 cm diameter right hilar lymph node, a 5 mm indeterminate hepatic hypodensity in the anterior segment of the right hepatic lobe, a 3.7 x 4.3 cm mass just below that of left adrenal gland, thickening of the distal sigmoid colon and rectum, enlarged prostate, and sclerotic appearance of the posterior right ninth rib with associated soft tissue mass, mild expansile appearance of the right 10th rib. Liver and spleen were reportedly normal. On 08/15/2019, patient underwent PET scan. The PET scan showed lucent focus within the left middle cranial fossa which could be further assessed with brain MRI with and without intravenous contrast, malignant appearing uptake within the right upper lobe and right hilum, metastasis to the right ninth rib, hypermetabolic foci within the rectum and the subtending inferior mesenteric vein, left adrenal adenoma and infrarenal abdominal aortic ectasia. On 08/21/2019, I started the patient on androgen deprivation therapy with Lupron 22.5 mg subcutaneous every 3 months. Meanwhile patient also started taking casodex 50 mg once a day with plan for about a month to prevent PSA flare. Patient said that he has tolerated well. Since his previous visit, Dr. Estrada performed colonoscopy. Biopsy from a polyp at 25 cm was negative for dysplasia or malignancy. However biopsy from polyp at 15 cm showed colonic mucosa with metastatic prostate adenocarcinoma. On 08/21/2019, Dr. Avelino Chowdhury did a telephone encounter. Dr. Chowdhury thought that the lung lesion did appear to be amenable to bronchoscopic biopsy, but was not able to perform elective bronchoscopy due to the COVID-19 risk of aerosolization. As a result Dr. Chowdhury recommended CT-guided biopsy of the right posterior chest wall lesion. On 08/31/2019, patient underwent CT biopsy of right ninth rib lesion by Dr. Zechariah Bowles. The final pathology showed small cell lung cancer. On 10/15/2019, patient underwent placement of left subclavian Port-A-Cath by Dr. Wilbur Estrada. On 10/22/2019, he was started on chemotherapy with carbo/etop/atezolizumab. On 01/24/2020, he completed 4 cycles of carboplatin/etoposide/atezolizumab. Interval History On 02/14/2020 he was started on Docetaxel 75 mg/m2 q21d. Overall, he has tolerated the treatment well. At the same time, patient continued the treatment with atezolizumab for his concurrent diagnosis of small cell lung cancer. Patient is complaining of fatigue. He denies any chest pain. He does have some shortness of breath, but he denies any cough. He denies any abdominal pain. He continues to have incontinence or leakages of the rectum. He denies any fever or chills. He continues to have worsening and rectal pain and is using pain medications. Treatment Summary: 1. Lupron, started 08/27/2015 - ? 2. Radiation to sacrum/right proximal femur, 12/15/2016 - 12/21/2016 3. Abiraterone + prednisone, 12/07/16 - ? 4. Xtandi, started in 06/2017 - ? 5. Lupron 22.5 mg q3m, started on 08/21/2019 - 6. Carbo/Etop/Atezo x 4 cycles: 10/22/2019 - 01/24/2020 7. Docetaxel and Atezolizumab q3w 02/14/2020 - - Patient Self-Reported Symptoms SR Constitution: Fatigue/Malaise SR ears, nose, mouth, throat issues: Ears ringing SR Cardiovascular issues: Shortness of breath with activity or lying flat, Dizzy/lightheaded SR Gastrointestinal issues: Poor or no appetite, Change in bowel pattern, Diarrhea, Constipation, Black/tarry stool, Abdominal pain SR Musculoskeletal issues: Muscle weakness SR Neuro issues: Lightheaded/dizzy SR Hematologic issues: Slow healing SR Endocrine issues: Cold intolerance, Heat intolerance, Hot flashes - Additional ROS All systems PM: reviewed and no additional remarkable complaints except as stated Home Medications and Allergies Home Medications Medication Instructions Recorded Confirmed Type lisinopril 20 mg PO DAILY #30 tab 09/03/19 11/12/19 Rx hydrocodone-acetaminophen [[place]] 1 tab PO Q4H PRN #10 tab 10/15/19 11/12/19 Rx ondansetron HCl [Zofran] 4 mg PO Q6H PRN 10/25/19 11/12/19 History dicyclomine 20 mg PO QID PRN #20 tab 11/10/19 11/12/19 Rx loperamide 2 mg PO Q4H PRN #20 cap 11/10/19 11/12/19 Rx ondansetron HCl [Zofran] 4 mg PO Q6H PRN #20 tab 11/10/19 11/12/19 Rx triamcinolone acetonide 1 applictn TOP TID #454 gram 11/10/19 11/12/19 Rx morphine 30 mg PO Q6H PRN #120 tab 02/07/20 Rx prednisone 5 mg PO BID #60 ea 02/07/20 Rx prednisone 5 mg PO BID #100 tab 02/14/20 Rx prednisone 5 mg PO BID #60 ea 02/14/20 Rx bicalutamide [Casodex] 50 mg PO DAILY #100 tab 02/25/20 Rx dexamethasone 2 mg PO DAILY #21 tab 02/25/20 Rx Allergies Allergy/AdvReac Type Severity Reaction Status Date / Time No Known Drug Allergies Allergy Verified 11/20/19 12:14 Exam Vital signs: Vital Signs Temp Pulse Resp BP Pulse Ox 03/06/20 09:43 98.2 F 95 H 22 130/70 95 Intake and Output 03/05/20 03/06/20 03/06/20 23:59 07:59 15:59 Other: Weight 88 kg Patient Weight 03/06/20 23:59 Weight 88 kg Narrative: ECOG 1 Vitals above reviewed Constitutional: WDWN, well nourished, and well groomed. NAD. Pleasant and cooperative. HEENT: NCAT, EOMI, PERRLA, anicteric sclera. Neck: Supple and symmetrical. No palpable thyromegaly or lymphadenopathy. No palpable masses. Respiratory: No use of accessory muscles, no wheezes. Cardiovascular: RRR, S1 and S2 normal, no M/G/R. No edema of lower extremities. Abdomen: Soft, mild mid abdominal tenderness, no palpable hepatosplenomegaly Lymphatic: no palpable palpable lymph nodes in the neck, or axillae. Musculoskeletal: normal gait and station Neurological: AOx3, CN II-XII grossly intact. No focal motor or sensory deficit. Psychiatric: AOx3, normal memory (recent and remote), normal mood and affect. Results - Labs Laboratory Last Values WBC 15.0 X10^3/uL (4.5-11.0) H 03/06/20 10:10 RBC 3.64 X10^6/uL (4.5-5.9) L 03/06/20 10:10 Hgb 12.0 g/dL (13.5-17.5) L 03/06/20 10:10 Hct 35.3 % (41-53) L 03/06/20 10:10 MCV 97.1 fL (80-100) 03/06/20 10:10 MCH 32.8 PG (26-34) 03/06/20 10:10 MCHC 33.8 % (30-36) 03/06/20 10:10 RDW 17.7 % (11.6-14.8) H 03/06/20 10:10 Plt Count 185 X10^3/uL (150-400) 03/06/20 10:10 Neut % (Auto) Not Reportable 03/06/20 10:10 Lymph % (Auto) Not Reportable 03/06/20 10:10 [place] % (Auto) Not Reportable 03/06/20 10:10 Eos % (Auto) Not Reportable 03/06/20 10:10 Baso % (Auto) Not Reportable 03/06/20 10:10 Neut # (Auto) Cancelled 02/07/20 09:30 Lymph # (Auto) Not Reportable 03/06/20 10:10 [place] # (Auto) Not Reportable 03/06/20 10:10 Eos # (Auto) Cancelled 02/07/20 09:30 Baso # (Auto) Not Reportable 03/06/20 10:10 Total Counted 100 03/06/20 10:10 Seg Neutrophils % 77.0 % (38-70) H 03/06/20 10:10 Band Neutrophils % 4.0 % (3-7) 03/06/20 10:10 Lymphocytes % (Manual) 10.0 % (25-45) L 03/06/20 10:10 Atypical Lymphs % 2.0 % (-0) H 03/06/20 10:10 Monocytes % (Manual) 7.0 % (2-11) 03/06/20 10:10 Eosinophils % (Manual) 2.0 % (2-4) 11/12/19 11:40 Metamyelocytes % 2.0 % (-0) H 11/12/19 11:40 Myelocytes % 4.0 % (-0) H 11/12/19 11:40 Neutrophils # (Manual) 63945 /uL (9262-4820) H 03/06/20 10:10 Nucleated RBCs 1 #/Diff (-0) H 02/21/20 15:09 RBC Morphology See below 03/06/20 10:10 Polychromasia 1+ H 03/06/20 10:10 Anisocytosis 1+ H 03/06/20 10:10 Ovalocytes 1+ H 03/06/20 10:10 Sodium 133 mmol/L (137-145) L 03/06/20 10:10 Potassium 3.6 mmol/L (3.4-5.1) 03/06/20 10:10 Chloride 99 mmol/L (98-107) 03/06/20 10:10 Carbon Dioxide 32 mmol/L (22-32) 03/06/20 10:10 BUN 23 mg/dL (9-20) H 03/06/20 10:10 Creatinine 0.90 mg/dL (0.66-1.25) 03/06/20 10:10 Estimated GFR > 60.0 mL/min (>60) 03/06/20 10:10 BUN/Creatinine Ratio 25.6 (6-22) H 03/06/20 10:10 Glucose 113 mg/dL (80-110) H 03/06/20 10:10 Calcium 9.0 mg/dL (8.4-10.2) 03/06/20 10:10 Magnesium 2.1 mg/dL (1.6-2.3) 10/27/19 13:48 Total Bilirubin 0.5 mg/dL (0.2-1.3) 03/06/20 10:10 AST 38 IU/L (17-59) 03/06/20 10:10 ALT 27 IU/L (<50) 03/06/20 10:10 Alkaline Phosphatase 48 U/L (38-126) 03/06/20 10:10 Total Protein 6.1 g/dL (6.3-8.2) L 03/06/20 10:10 Albumin 4.0 g/dL (3.5-5.0) 03/06/20 10:10 Globulin 2.1 g/dL (1.7-4.1) 03/06/20 10:10 Albumin/Globulin Ratio 1.9 (1.0-2.8) 03/06/20 10:10 Alpha Fetoprotein 2.4 ng/mL (0.0-8.3) 08/15/19 13:39 Carcinoembryonic Ag 12.1 ng/mL (0.1-3.0) H 08/15/19 13:39 Prostate Specific Ag 67.7 ng/mL (0.10-4.00) H 03/06/20 10:10 TSH 0.560 uIU/mL (0.47-4.68) 03/06/20 10:10 Testosterone Level 7.43 ng/dL (71.8-623) L 01/31/20 14:03 Ref Test (Refrig) Comment (.) 01/31/20 14:03 Assessment and Plan (1) Prostate cancer Overview: GS 4+4 prostate cancer by TRUS prostate biopsy on 07/24/2015. Initial imaging studies showed possible bone metastasis. Throughout these years, patient has received Lupron, Casodex, abiraterone, and Xtandi, but not consistently. He also had radiation therapy in 2017 to the pre-sacral and right proximal femur. Colonoscopy with biopsy on 08/29/2019 showed colonic metastasis of the prostate cancer. Patient resumed ADT on 08/21/2019. He was started on docetaxel 75 mg per m2 Q 21 together with prednisone 5 mg twice daily on 02/14/2020. Assessment Patient has tolerated the first round of the chemotherapy well. I reviewed the lab results. I will proceed with cycle 2. Plan: Continue Lupron 22.5 mg im q3m Continue Casodex 50 mg daily Ok to proceed to C2# Docetaxel 75 mg/m2 Cont prednisone 5 mg bid, Continue morphing 30 mg q6h prn RTC on C3D1, labs per protocol. (2) Small cell lung cancer Overview: 64-year-old gentleman with lifelong history of heavy smoking and alcohol abuse. On 07/05/2019, he was found to have a 1.8 cm lobulated/spiculated mass in the right upper lobe and a 1.6 cm diameter right hilar lymph node on CT scan during an ER visit for abdominal pain. The CT also showed 5 mm indeterminate hepatic hypodensity in the anterior segment of the right hepatic lobe, a 3.7 x 4.3 cm mass just below that of left adrenal gland, thickening of the distal sigmoid colon and rectum, enlarged prostate, and sclerotic appearance of the posterior right ninth rib with associated soft tissue mass, mild expansile appearance of the right 10th rib. Liver and spleen were reportedly normal. On 08/15/2019, PET scan showed lucent focus within the left middle cranial fossa, malignant appearing uptake within the right upper lobe and right hilum, metastasis to the right ninth rib, hypermetabolic foci within the rectum and the subtending inferior mesenteric vein, left adrenal adenoma and infrarenal abdominal aortic ectasia. Assessment: He has completed 4 cycles of carbo/etop/atezolizumab. Overall, he has tolerated well. He then was started on maintenance Atezolizumab every 21 days on 02/14/2020 Plan: Ok to proceed to C2# maintenance Atezolizumab (3) Port-A-Cath in place Flush every 4-6 weeks
[2020-03-06 10:33] LABS: Add Manual Diff / Slide Review YES; Hematocrit 35.3 % (41-53); Mean Corpuscular HGB Conc 33.8 % (30-36); Mean Corpuscular Hemoglobin 32.8 PG (26-34); Mean Corpuscular Volume 97.1 fL (80-100); Platelet Count 185 X10^3/uL (150-400); Red Blood Cell Count 3.64 X10^6/uL (4.5-5.9); Red Cell Distribution Width 17.7 % (11.6-14.8)
[2020-03-06 10:42] LABS: Alanine Aminotransferase 27 IU/L (<50); Albumin Globulin Ratio 1.9 (1.0-2.8); Alkaline Phosphatase 48 U/L (38-126); Aspartate Aminotransferase 38 IU/L (17-59); BUN Creatinine Ratio 25.6 (6-22); Bilirubin Total 0.5 mg/dL (0.2-1.3); Blood Urea Nitrogen 23 mg/dL (9-20); Carbon Dioxide 32 mmol/L (22-32); Chloride 99 mmol/L (98-107); Estimated Glomerular Filt Rate > 60.0 mL/min (>60); Globulin 2.1 g/dL (1.7-4.1); Glucose 113 mg/dL (80-110); HEMOLYSIS < 15 (0-50); Potassium 3.6 mmol/L (3.4-5.1); Sodium 133 mmol/L (137-145); Total Protein 6.1 g/dL (6.3-8.2)
[2020-03-06 11:12] LABS: Prostate Specific Antigen 67.7 ng/mL (0.10-4.00)
[2020-03-06 11:16] LABS: Neutrophils Absolute Manual 12150 /uL (3000-5900); Total Cells Counted 100
[2020-03-06 11:17] LABS: Anisocytosis 1+; Polychromasia 1+
[2020-03-06 11:18] LABS: Ovalocytes 1+
[2020-03-06] MEDS: SODIUM CHLORIDE 0.9% 100 ML 21 ML IV (11:19)
[2020-03-06] MEDS: DEXAMETHASONE 10 MG/ML VIAL 8 MG IV (11:20)
[2020-03-06] MEDS: ONDANSETRON 8 MG in SODIUM CHLORIDE 0.9% 50 ML 216 ML IV (11:23)
[2020-03-06] MEDS: SODIUM CHLORIDE 0.9% IV (11:45)
[2020-03-06] MEDS: ATEZOLIZUMAB IV (11:45)
[2020-03-06] MEDS: SODIUM CHLORIDE EXCEL IV (12:44)
[2020-03-06] MEDS: DOCETAXEL IV (12:44)
--- NOTE | 2020-03-17 13:18 | PC.NURSE ---
Pt is requesting refills or a two months supply as he is unable to regularly visit the store because [place]
--- NOTE | 2020-03-18 14:24 | PC.NURSE ---
PATIENT CALLED REQUESTING AN INHALER TO HELP HIM CLEAN THE STUFF OUT OF HIS LUNGS. THIS NURSE RESPONDED THAT HE SHOULD BE DRINKING PLENTY OF WATER TO KEEP SECRETIONS LOOSE AND CAN ASK DR MILAN ABOUT AN INHALER AT HIS NEXT VISIT ON 03/27. HE INSISTED ON WISHING US TO ASK HIS DR SOONER SO DR MILAN INFORMED PER THIS NOTE.
[2020-03-20 16:00] LABS: Add Manual Diff / Slide Review NO; Basophils Absolute Auto 0 /uL (0-100); Basophils Percent Auto 0.5 % (0-2); Eosinophils Absolute Auto 0 /uL (0-450); Eosinophils Percent Auto 0.1 % (2-4); Hematocrit 32.5 % (41-53); Hemoglobin 11.5 g/dL (13.5-17.5); Lymphocytes Absolute Auto 1100 /uL (1100-4500); Lymphocytes Percent Auto 19.7 % (25-40); Mean Corpuscular HGB Conc 35.3 % (30-36); Mean Corpuscular Hemoglobin 33.4 PG (26-34); Mean Corpuscular Volume 94.7 fL (80-100); Monocytes Absolute Auto 1000 /uL (0-900); Monocytes Percent Auto 17.6 % (3-14); Neutrophils Absolute Auto 3500 /uL (1500-7000); Neutrophils Percent Auto 62.1 % (50-75); Platelet Count 242 X10^3/uL (150-400); Red Blood Cell Count 3.43 X10^6/uL (4.5-5.9); Red Cell Distribution Width 17.8 % (11.6-14.8); White Blood Cell Count 5.6 X10^3/uL (4.5-11.0)
[2020-03-20 16:07] LABS: Alanine Aminotransferase 32 IU/L (<50); Albumin Globulin Ratio 1.7 (1.0-2.8); Alkaline Phosphatase 44 U/L (38-126); Aspartate Aminotransferase 44 IU/L (17-59); BUN Creatinine Ratio 16.5 (6-22); Bilirubin Total 0.6 mg/dL (0.2-1.3); Blood Urea Nitrogen 15 mg/dL (9-20); Carbon Dioxide 31 mmol/L (22-32); Chloride 102 mmol/L (98-107); Estimated Glomerular Filt Rate > 60.0 mL/min (>60); Globulin 2.3 g/dL (1.7-4.1); Glucose 98 mg/dL (80-110); HEMOLYSIS < 15 (0-50); Potassium 4.1 mmol/L (3.4-5.1); Sodium 133 mmol/L (137-145); Total Protein 6.3 g/dL (6.3-8.2)
[2020-03-27 09:08] LABS: Add Manual Diff / Slide Review YES; Hematocrit 34.4 % (41-53); Hemoglobin 11.8 g/dL (13.5-17.5); Mean Corpuscular HGB Conc 34.3 % (30-36); Mean Corpuscular Hemoglobin 32.8 PG (26-34); Mean Corpuscular Volume 95.6 fL (80-100); Platelet Count 225 X10^3/uL (150-400); Red Cell Distribution Width 18.4 % (11.6-14.8); White Blood Cell Count 13.6 X10^3/uL (4.5-11.0)
--- NOTE | 2020-03-27 09:16 | P.PNONC_ITS ---
PN -Subjective Interval history: ID/CC: 65-year old with metastatic prostate cancer and small cell lung cancer HPI Rylan Yeung is a 65 year old male. He has been drinking whisky for 50 years. He said he drinks like fish. He also admit to heaving smoking since 14 yeas old. He smokes 3 ppd. He has no intention to quit at present Mr. Yeung was diagnosed with GS 4+4 prostate cancer by TRUS prostate biopsy on 07/24/2015. His initial presentation was urge incontinence and penile nodule. Workup including CT chest on 08/13/2015 showed a small right lung nodule. On 08/27/2015, he was started on Lupron 30 mg after taking casodex for 4-6 weeks. Bone scan was suspicious for possible metastasis. Follow up CT on 11/29/2016 showed mild interval increase in size of heterogeneous pre-sacral lobulated mass, likely high pelvic adenopathy, stable left adrenal mass measuring 3.4 x 3.7 cm, mild sigmoid colon wall thickening in the region of the presacral mass, and relatively stable areas of sclerosis within the T12 and L2 vertebral bodies. Stable sclerosis of the posterior right ninth rib. No clearly new sclerotic lesions are seen. Bone scan 11/29/2016 showed multiple areas of activity suspicious for metastatic disease.The right intertrochanteric region of activity/metastases has increased significantly in size. He then underwent radiation to the sarcum/right proximal femur from 12/15/2016 to 12/21/2016 at 500 cGy per fraction for 5 fractions to a total of 2500 cGy. He was started on Abiraterone + prednisone started 12/07/16. Then in 06/2017, he was started on Xtandi. All treatment was on hold after he moved to [facility]. About end of 2018 (4-5 months ago), he developed right upper quadrant abdominal pain, that felt like bruised and bad, 8-10/10 in intensity, and constant. Eating does not worsen the pain. No associated nausea or vomiting. He also reports constipation with intermittent diarrhea. He reports tarry black stool at the time. But he did not seek medical care. At times, when RUQ pain quits, he notices right rib pain. He denies cough, and denies headache. His weight has been stable. On 07/05/2019, he visited ER for the abdominal pain that was hurting really bad. He underwent CT chest, abdomen and pelvis that showed a 1.8 cm lobulated/spiculated mass in the right upper lobe, a 1.6 cm diameter right hilar lymph node, a 5 mm indeterminate hepatic hypodensity in the anterior segment of the right hepatic lobe, a 3.7 x 4.3 cm mass just below that of left adrenal gland, thickening of the distal sigmoid colon and rectum, enlarged prostate, and sclerotic appearance of the posterior right ninth rib with associated soft tissue mass, mild expansile appearance of the right 10th rib. Liver and spleen were reportedly normal. On 08/15/2019, patient underwent PET scan. The PET scan showed lucent focus within the left middle cranial fossa which could be further assessed with brain MRI with and without intravenous contrast, malignant appearing uptake within the right upper lobe and right hilum, metastasis to the right ninth rib, hypermetabolic foci within the rectum and the subtending inferior mesenteric vein, left adrenal adenoma and infrarenal abdominal aortic ectasia. On 08/21/2019, I started the patient on androgen deprivation therapy with Lupron 22.5 mg subcutaneous every 3 months. Meanwhile patient also started taking casodex 50 mg once a day with plan for about a month to prevent PSA flare. Patient said that he has tolerated well. Dr. Estrada performed colonoscopy. Biopsy from a polyp at 25 cm was negative for dysplasia or malignancy. However biopsy from polyp at 15 cm showed colonic mucosa with metastatic prostate adenocarcinoma. On 08/21/2019, Dr. Avelino Chowdhury did a telephone encounter. Dr. Chowdhury thought that the lung lesion did appear to be amenable to bronchoscopic biopsy, but was not able to perform elective bronchoscopy due to the COVID-19 risk of a erosolization. As a result Dr. Chowdhury recommended CT-guided biopsy of the right posterior chest wall lesion. On 08/31/2019, patient underwent CT biopsy of right ninth rib lesion by Dr. Zechariah Bowles. The final pathology showed small cell lung cancer. On 10/15/2019, patient underwent placement of left subclavian Port-A-Cath by Dr. Wilbur Estrada. On 10/22/2019, he was started on chemotherapy with carbo/etop/atezolizumab. On 01/24/2020, he completed 4 cycles of carboplatin/etoposide/atezolizumab. Interval History On 02/14/2020 he was started on Docetaxel 75 mg/m2 q21d. At the same time, patient continued the treatment with atezolizumab for his concurrent diagnosis of small cell lung cancer. Since his previous visit, we also ordered morphine 30 mg every 12 hours. Patient said that after he started taking morphine he felt a lot better. It is quite strange to him. He only took morphine half of the pill every 12 hours instead of 30 mg every 12 hours. Patient said that the leakage from the rectum has decreased significantly. In addition he is able to sleep more than a couple of hours. For the last couple of months he was only able to sleep for an hour or so. He is quite excited. No other new events. Treatment Summary: 1. Lupron, started 08/27/2015 - ? 2. Radiation to sacrum/right proximal femur, 12/15/2016 - 12/21/2016 3. Abiraterone + prednisone, 12/07/16 - ? 4. Xtandi, started in 06/2017 - ? 5. Lupron 22.5 mg q3m, started on 08/21/2019 - 6. Carbo/Etop/Atezo x 4 cycles: 10/22/2019 - 01/24/2020 7. Docetaxel and Atezolizumab q3w 02/14/2020 - - Patient Self-Reported Symptoms SR Constitution: Fatigue/Malaise SR ears, nose, mouth, throat issues: Ears ringing SR respiratory issues: Cough, Shortness of breath SR Cardiovascular issues: Shortness of breath with activity or lying flat SR Gastrointestinal issues: Poor or no appetite, Change in bowel pattern, Diarrhea, Constipation, Black/tarry stool, Abdominal pain SR Musculoskeletal issues: Muscle weakness SR Neuro issues: Lightheaded/dizzy SR Hematologic issues: Slow healing SR Endocrine issues: Cold intolerance, Heat intolerance, Hot flashes - Additional ROS All systems PM: reviewed and no additional remarkable complaints except as stated Home Medications and Allergies Home Medications Medication Instructions Recorded Confirmed Type hydrocodone-acetaminophen [[place]] 1 tab PO Q4H PRN #10 tab 10/15/19 11/12/19 Rx ondansetron HCl [Zofran] 4 mg PO Q6H PRN 10/25/19 11/12/19 History dicyclomine 20 mg PO QID PRN #20 tab 11/10/19 11/12/19 Rx loperamide 2 mg PO Q4H PRN #20 cap 11/10/19 11/12/19 Rx ondansetron HCl [Zofran] 4 mg PO Q6H PRN #20 tab 11/10/19 11/12/19 Rx triamcinolone acetonide 1 applictn TOP TID #454 gram 11/10/19 11/12/19 Rx morphine 30 mg PO Q6H PRN #120 tab 02/07/20 Rx prednisone 5 mg PO BID #120 tab 03/17/20 Rx albuterol sulfate 1 inh INHALATION QID #1 unit 03/24/20 Rx bicalutamide [Casodex] 50 mg PO DAILY #100 tab 03/24/20 Rx dexamethasone 2 mg PO DAILY #21 tab 03/24/20 Rx lisinopril 20 mg PO DAILY #30 tab 03/24/20 Rx Allergies Allergy/AdvReac Type Severity Reaction Status Date / Time No Known Drug Allergies Allergy Verified 11/20/19 12:14 Exam Vital signs: 03/27/20 09:35 Last Vital Signs Temp 98 F 03/27/20 09:17 Pulse 93 H 03/27/20 09:17 Resp 18 03/27/20 09:17 BP 135/79 03/27/20 09:17 Pulse Ox 98 03/27/20 09:17 Narrative: ECOG 1 Vitals above reviewed Constitutional: WDWN, well nourished, and well groomed. NAD. Pleasant and cooperative. HEENT: NCAT, EOMI, PERRLA, anicteric sclera. Neck: Supple and symmetrical. No palpable thyromegaly or lymphadenopathy. No palpable masses. Respiratory: No use of accessory muscles, no wheezes. Cardiovascular: RRR, S1 and S2 normal, no M/G/R. No edema of lower extremities. Abdomen: Soft, mild mid abdominal tenderness, no palpable hepatosplenomegaly Lymphatic: no palpable palpable lymph nodes in the neck, or axillae. Musculoskeletal: normal gait and station Neurological: AOx3, CN II-XII grossly intact. No focal motor or sensory deficit. Psychiatric: AOx3, normal memory (recent and remote), normal mood and affect. Results - Labs Laboratory Last Values WBC 13.6 X10^3/uL (4.5-11.0) H 03/27/20 08:40 RBC 3.60 X10^6/uL (4.5-5.9) L 03/27/20 08:40 Hgb 11.8 g/dL (13.5-17.5) L 03/27/20 08:40 Hct 34.4 % (41-53) L 03/27/20 08:40 MCV 95.6 fL (80-100) 03/27/20 08:40 MCH 32.8 PG (26-34) 03/27/20 08:40 MCHC 34.3 % (30-36) 03/27/20 08:40 RDW 18.4 % (11.6-14.8) H 03/27/20 08:40 Plt Count 225 X10^3/uL (150-400) 03/27/20 08:40 Neut % (Auto) Not Reportable 03/27/20 08:40 Lymph % (Auto) Not Reportable 03/27/20 08:40 Mills % (Auto) Not Reportable 03/27/20 08:40 Eos % (Auto) Not Reportable 03/27/20 08:40 Baso % (Auto) Not Reportable 03/27/20 08:40 Neut # (Auto) 3500 /uL (6996-0895) 03/20/20 15:14 Lymph # (Auto) Not Reportable 03/27/20 08:40 Mills # (Auto) Not Reportable 03/27/20 08:40 Eos # (Auto) 0 /uL (0-450) 03/20/20 15:14 Baso # (Auto) Not Reportable 03/27/20 08:40 Total Counted 100 03/27/20 08:40 Seg Neutrophils % 72.0 % (38-70) H 03/27/20 08:40 Band Neutrophils % 4.0 % (3-7) 03/27/20 08:40 Lymphocytes % (Manual) 12.0 % (25-45) L 03/27/20 08:40 Atypical Lymphs % 4.0 % (-0) H 03/27/20 08:40 Monocytes % (Manual) 7.0 % (2-11) 03/27/20 08:40 Eosinophils % (Manual) 2.0 % (2-4) 11/12/19 11:40 Metamyelocytes % 1.0 % (-0) H 03/27/20 08:40 Myelocytes % 4.0 % (-0) H 11/12/19 11:40 Neutrophils # (Manual) 81014 /uL (9158-2867) H 03/27/20 08:40 Nucleated RBCs 1 #/Diff (-0) H 02/21/20 15:09 RBC Morphology Not Reportable 03/27/20 08:40 Polychromasia 1+ H 03/27/20 08:40 Anisocytosis 2+ H 03/27/20 08:40 Ovalocytes 1+ H 03/06/20 10:10 Sodium 132 mmol/L (137-145) L 03/27/20 08:40 Potassium 4.1 mmol/L (3.4-5.1) 03/27/20 08:40 Chloride 100 mmol/L (98-107) 03/27/20 08:40 Carbon Dioxide 26 mmol/L (22-32) 03/27/20 08:40 BUN 15 mg/dL (9-20) 03/27/20 08:40 Creatinine 0.89 mg/dL (0.66-1.25) 03/27/20 08:40 Estimated GFR > 60.0 mL/min (>60) 03/27/20 08:40 BUN/Creatinine Ratio 16.9 (6-22) 03/27/20 08:40 Glucose 95 mg/dL (80-110) 03/27/20 08:40 Calcium 9.2 mg/dL (8.4-10.2) 03/27/20 08:40 Magnesium 2.1 mg/dL (1.6-2.3) 10/27/19 13:48 Total Bilirubin 0.8 mg/dL (0.2-1.3) 03/27/20 08:40 AST 43 IU/L (17-59) 03/27/20 08:40 ALT 29 IU/L (<50) 03/27/20 08:40 Alkaline Phosphatase 48 U/L (38-126) 03/27/20 08:40 Total Protein 6.9 g/dL (6.3-8.2) 03/27/20 08:40 Albumin 4.3 g/dL (3.5-5.0) 03/27/20 08:40 Globulin 2.6 g/dL (1.7-4.1) 03/27/20 08:40 Albumin/Globulin Ratio 1.7 (1.0-2.8) 03/27/20 08:40 Alpha Fetoprotein 2.4 ng/mL (0.0-8.3) 08/15/19 13:39 Carcinoembryonic Ag 12.1 ng/mL (0.1-3.0) H 08/15/19 13:39 Prostate Specific Ag 73.2 ng/mL (0.10-4.00) H 03/27/20 08:40 TSH 0.582 uIU/mL (0.47-4.68) 03/27/20 08:40 Testosterone Level 7.43 ng/dL (71.8-623) L 01/31/20 14:03 Ref Test (Refrig) Comment (.) 01/31/20 14:03 Assessment and Plan (1) Prostate cancer Overview: GS 4+4 prostate cancer by TRUS prostate biopsy on 07/24/2015. Initial imaging studies showed possible bone metastasis. Throughout these years, patient has received Lupron, Casodex, abiraterone, and Xtandi, but not consistently. He also had radiation therapy in 2017 to the pre-sacral and right proximal femur. Colonoscopy with biopsy on 08/29/2019 showed colonic metastasis of the prostate cancer. Patient resumed ADT on 08/21/2019. He was started on docetaxel 75 mg per m2 Q 21 together with prednisone 5 mg twice daily on 02/14/2020. Assessment Overall, he has tolerated the chemotherapy very well. He said he has more energy. The rectum leakage has decreased significant. He thought that it was due to the use of the morphine. But I think most likely it indicates that his prostate cancer is responding to the chemotherapy. I will continue the current chemotherapy without any changes. Plan: Continue Lupron 22.5 mg im q3m Continue Casodex 50 mg daily Ok to proceed to C3# Docetaxel 75 mg/m2 Cont prednisone 5 mg bid, Continue morphing 30 mg q6h prn RTC on C4D1, labs per protocol. (2) Small cell lung cancer Overview: 64-year-old gentleman with lifelong history of heavy smoking and alcohol abuse. On 07/05/2019, he was found to have a 1.8 cm lobulated/spiculated mass in the right upper lobe and a 1.6 cm diameter right hilar lymph node on CT scan during an ER visit for abdominal pain. The CT also showed 5 mm indeterminate hepatic hypodensity in the anterior segment of the right hepatic lobe, a 3.7 x 4.3 cm mass just below that of left adrenal gland, thickening of the distal sigmoid colon and rectum, enlarged prostate, and sclerotic appearance of the posterior right ninth rib with associated soft tissue mass, mild expansile appearance of the right 10th rib. Liver and spleen were reportedly normal. On 08/15/2019, PET scan showed lucent focus within the left middle cranial fossa, malignant appearing uptake within the right upper lobe and right hilum, metastasis to the right ninth rib, hypermetabolic foci within the rectum and the subtending inferior mesenteric vein, left adrenal adenoma and infrarenal abdominal aortic ectasia. Assessment: He has completed 4 cycles of carbo/etop/atezolizumab. Overall, he has tolerated well. He then was started on maintenance Atezolizumab every 21 days on 02/14/2020 Plan: Ok to proceed to C3# maintenance Atezolizumab (3) Port-A-Cath in place Flush every 4-6 weeks
[2020-03-27 09:17] VITALS: BP 135/79; PULSE 93; RESP 18; TEMP 36.6; O2SAT 98
[2020-03-27 09:27] LABS: Neutrophils Absolute Manual 10336 /uL (3000-5900); Total Cells Counted 100
[2020-03-27 09:28] LABS: Anisocytosis 2+; Polychromasia 1+
[2020-03-27] MEDS: SODIUM CHLORIDE 0.9% 100 ML 30 ML IV (09:36)
[2020-03-27] MEDS: DEXAMETHASONE 10 MG/ML VIAL 8 MG IV (09:37)
[2020-03-27 09:56] LABS: Alanine Aminotransferase 29 IU/L (<50); Albumin 4.3 g/dL (3.5-5.0); Albumin Globulin Ratio 1.7 (1.0-2.8); Alkaline Phosphatase 48 U/L (38-126); Aspartate Aminotransferase 43 IU/L (17-59); BUN Creatinine Ratio 16.9 (6-22); Bilirubin Total 0.8 mg/dL (0.2-1.3); Blood Urea Nitrogen 15 mg/dL (9-20); Calcium 9.2 mg/dL (8.4-10.2); Carbon Dioxide 26 mmol/L (22-32); Chloride 100 mmol/L (98-107); Estimated Glomerular Filt Rate > 60.0 mL/min (>60); Globulin 2.6 g/dL (1.7-4.1); Glucose 95 mg/dL (80-110); HEMOLYSIS < 15 (0-50); Potassium 4.1 mmol/L (3.4-5.1); Sodium 132 mmol/L (137-145); Total Protein 6.9 g/dL (6.3-8.2)
[2020-03-27] MEDS: ONDANSETRON 8 MG in SODIUM CHLORIDE 0.9% 50 ML 216 ML IV (10:17)
[2020-03-27 10:24] LABS: Thyroid Stimulating Hormone 0.582 uIU/mL (0.47-4.68)
[2020-03-27 10:27] LABS: Prostate Specific Antigen 73.2 ng/mL (0.10-4.00)
[2020-03-27] MEDS: ATEZOLIZUMAB IV (10:58)
[2020-03-27] MEDS: SODIUM CHLORIDE 0.9% IV (10:58)
[2020-03-27] MEDS: MORPHINE IR 15 MG TABLET PO (11:02)
[2020-03-27] MEDS: SODIUM CHLORIDE EXCEL IV (12:15)
[2020-03-27] MEDS: DOCETAXEL IV (12:15)
--- NOTE | 2020-03-31 15:59 | ONC.SCHED ---
Left msg. for patient regarding schedule. He didn't answer so I left a very clear message.
--- NOTE | 2020-04-02 12:43 | PC.NURSE ---
PATIENT CALLED IN REPORTING EXHAUSTION, DECREASED FLUID INTAKE, WEAKNESS. THIS NURSE ENCOURAGED HIM TO GET IN HERE TODAY FOR HIS LABS AND FLUIDS AND TONY PATEL
[2020-04-02 13:41] LABS: Add Manual Diff / Slide Review NO; Basophils Absolute Auto 100 /uL (0-100); Basophils Percent Auto 1.3 % (0-2); Eosinophils Absolute Auto 0 /uL (0-450); Eosinophils Percent Auto 0.4 % (2-4); Hematocrit 33.7 % (41-53); Hemoglobin 11.7 g/dL (13.5-17.5); Lymphocytes Absolute Auto 1800 /uL (1100-4500); Lymphocytes Percent Auto 28.1 % (25-40); Mean Corpuscular HGB Conc 34.8 % (30-36); Mean Corpuscular Hemoglobin 32.7 PG (26-34); Mean Corpuscular Volume 94.1 fL (80-100); Monocytes Absolute Auto 200 /uL (0-900); Monocytes Percent Auto 3.2 % (3-14); Neutrophils Absolute Auto 4300 /uL (1500-7000); Platelet Count 207 X10^3/uL (150-400); Red Blood Cell Count 3.58 X10^6/uL (4.5-5.9); Red Cell Distribution Width 17.6 % (11.6-14.8); White Blood Cell Count 6.5 X10^3/uL (4.5-11.0)
[2020-04-02 13:56] LABS: Alanine Aminotransferase 25 IU/L (<50); Albumin 4.2 g/dL (3.5-5.0); Albumin Globulin Ratio 1.8 (1.0-2.8); Alkaline Phosphatase 54 U/L (38-126); Aspartate Aminotransferase 47 IU/L (17-59); BUN Creatinine Ratio 19.8 (6-22); Bilirubin Total 1.1 mg/dL (0.2-1.3); Blood Urea Nitrogen 16 mg/dL (9-20); Calcium 8.8 mg/dL (8.4-10.2); Carbon Dioxide 27 mmol/L (22-32); Chloride 99 mmol/L (98-107); Estimated Glomerular Filt Rate > 60.0 mL/min (>60); Globulin 2.3 g/dL (1.7-4.1); Glucose 98 mg/dL (80-110); HEMOLYSIS < 15 (0-50); Potassium 3.8 mmol/L (3.4-5.1); Sodium 129 mmol/L (137-145); Total Protein 6.5 g/dL (6.3-8.2)
[2020-04-02 13:58] VITALS: BP 105/60; PULSE 100; RESP 20; TEMP 36.9; O2SAT 100
[2020-04-02 14:12] LABS: Magnesium 1.8 mg/dL (1.6-2.3)
[2020-04-02] MEDS: SODIUM CHLORIDE 0.9% 1,000 ML 1000 ML IV (14:25)
--- NOTE | 2020-04-02 14:57 | PC.NURSE ---
Addendum entered by Levon Jurado R.N. 04/07/20 11:35: Pt tested 04/02/20, results were negative Original Note: Covid test: pt fatigue without respiratory symptoms; states has lost taste 5 days ago. NS 1000ml bolus done, pt de accessed. Na low; educated to eat salty foods or salt foods. pt ambulated but reports weakness. reinforced pt to go to ED to get checked out. pt states no; I need to go to the boat and my dog.
[2020-04-02 15:19] LABS: COVID19 -Nasal RAPID Negative (Negative)
--- NOTE | 2020-04-17 11:39 | PC.NURSE ---
missed treatment: This RN called pt. pt answered in a whisper saying he was in a lot of pain and taking pain pills. I'm doing ok except for the pain. I have someone getting on me. I did call and leave a message I wasn't coming today. Will check on pt on tuesday.
--- NOTE | 2020-04-23 10:06 | PC.NURSE ---
Pt update: This RN spoke with pt over the phone. Pt has decided to stop chemo, it was just too hard on me. This RN discussed Hospice options and what services they might be able to provide, pt declined Hospice referral at this time, No, that's okay. Let pt know that if he changes his mind r/t Hospice to call this clinic or PCP, pt states Okay, I will. Explained to pt that SONY Finney was able to find someone to adopt pt's dog, Sharmila, when he could no longer provider care for her; pt declined phone contact info. Instructed pt to contact PCP, Dr. Hagen with any pain medication needs, pt states okay. Instructed pt to call 911 with any emergency that may occur, pt verbalized understanding. This RN will notify Dr. Balbuena that pt has decided to stop treatment and will also notify scheduling to cancel pt's future appointments.
--- NOTE | 2020-05-01 10:53 | PC.NURSE ---
This RN called and spoke to pt. He speaks in a whisper. States, I'm thinking about the prison. Wondering if they'll let me smoke, if I get a room to myself, and I have questions about the money part. This Rn told pt, I will call him next week and let Sharmin hopkins know about he's questions.
--- NOTE | 2020-05-07 13:03 | PC.NURSE ---
This RN called pt and informed him we have paperwork for termite exterminator helper care. pt asked for paperwork to be left at clinic director of front office and a friend will fiber picker. pt states, I'm not doing well. I think I will go to ED since I'm having a hard time caring for myself. I have someone taking my dog, cat, and valuables.
--- NOTE | 2020-05-20 15:51 | ONC.SCHED ---
on hospice with [facility]
--- NOTE | 2020-08-04 10:45 | PC.NURSE ---
Dr. Zavala from [facility] called to discuss possible Tx options for the pt. [phone] Making provider aware with this note.
== END ==
PROVIDERS: Internal Medicine; PCP Internal Medicine; Referring Provider Internal Medicine Hematology & Oncology; Visit Provider Internal Medicine Hematology & Oncology
DX: C34.11 Malignant neoplasm of upper lobe, right bronchus or lung; C34.01 Malignant neoplasm of right main bronchus; C78.5 Secondary malignant neoplasm of large intestine and rectum; C79.72 Secondary malignant neoplasm of left adrenal gland; C79.51 Secondary malignant neoplasm of bone; Z11.59 Encounter for screening for other viral diseases; T45.1X5A Adverse effect of antineoplastic and immunosuppressive drugs, initial encounter; E83.42 Hypomagnesemia
CPT/HCPCS: 36415; 36591; 80053; 82105; 82378; 83735; 84153; 84403; 84443; 85025; 87635; 96360; 96361; 96365; 96367; 96375; 96402; 96409; 96413; 96415; 96417; 99205; 99214; 99215; J1100; J1453; J1642; J2405; J7050; J9022; J9045; J9171; J9181; J9217

== ENCOUNTER 2020-05-17 12:54 | Observation (INO) | payer OTHER, SELFPAY ==
[2020-05-17] VITALS (13 sets, daily range): BP systolic 92–138; BP diastolic 54–76; PULSE 56–96; RESP 14–18; TEMP 36.8; O2SAT 95–100; BMI 24.8
--- NOTE | 2020-05-17 15:14 | ED.RECABL ---
HPI - Recheck/Abnormal Lab/Rx General Chief Complaint: Recheck/Abnormal Lab/Rx Stated Complaint: Needs To Go Into A Custodial Time Seen by Provider: 05/17/20 15:08 Source: patient Mode of arrival: Ambulatory Limitations: no limitations History of Present Illness HPI narrative: This is a 65-year-old male who comes to the emergency department with request for hospice. Patient states he has known colon cancer as well as lung cancer with multiple metastases. He states that he stopped chemo approximately a month ago. Patient has been taking oral morphine but he rash and this. He has established with Dr. Hagen. Dr. Johnson is his oncologist. He was told that he needs to be established with a residential and potentially hospice had been reluctant to leave his boat which he lives on. Patient states that he has now reached the stage where he is unable to care for himself, he has difficulty at times controlling his pain, he is unable to get an on and off the boat safely or about the boat safely. He has given away his belongings including his CT and his dog. He states that he cannot make it to the bathroom secondary to leakage from his rectal tumors. Patient does verify that he is DNR/DNI. Related Data Home Medications Medication Instructions Recorded Confirmed ondansetron HCl [Zofran] 4 mg PO Q6H PRN 10/25/19 11/12/19 Previous Rx's Medication Instructions Recorded hydrocodone-acetaminophen [[place]] 1 tab PO Q4H PRN #10 tab 10/15/19 dicyclomine 20 mg PO QID PRN #20 tab 11/10/19 loperamide 2 mg PO Q4H PRN #20 cap 11/10/19 ondansetron HCl [Zofran] 4 mg PO Q6H PRN #20 tab 11/10/19 triamcinolone acetonide 1 applictn TOP TID #454 gram 11/10/19 morphine 30 mg PO Q6H PRN #120 tab 02/07/20 prednisone 5 mg PO BID #120 tab 03/17/20 albuterol sulfate 1 inh INHALATION QID #1 unit 03/24/20 bicalutamide [Casodex] 50 mg PO DAILY #100 tab 03/24/20 dexamethasone 2 mg PO DAILY #21 tab 03/24/20 lisinopril 20 mg PO DAILY #30 tab 03/24/20 Allergies Allergy/AdvReac Type Severity Reaction Status Date / Time No Known Drug Allergies Allergy Verified 05/17/20 13:00 Review of Systems Review of Systems ROS Unobtainable: All systems reviewed & are unremarkable except as noted in HPI and below Patient History Medical History (Updated 05/17/20 @ 15:59 by Tahira Orlando DO) Alcohol abuse BPH loc w urin obs/LUTS Closed left tibial fracture Current smoker Diverticula, colon HTN (hypertension) Intermittent epigastric abdominal pain Liver metastases 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 Prostate cancer (~2015) Smoker unmotivated to quit Tarry stool Surgical History Hx of tonsillectomy Family History Mother Cancer Father Stomach cancer Social History household members: none Smoking Status: Current every day smoker alcohol intake: current substance use type: does not use and marijuana Smoking Status: Current every day smoker alcohol intake frequency: 0-2 drinks per day Substance Use Type: does not use Exam Narrative Exam Narrative: GENERAL: Alert and oriented x three, male appearing older than his stated age HEENT: Head normocephalic, atraumatic, EOMI, pupils reactive, face symmetric, moist mucous membranes NECK: Supple, full range of motion CARDIOVASCULAR: Regular rate and rhythm without murmurs, rubs or gallops. RESPIRATORY: Breath sounds equal bilaterally, no wheezes rales or rhonchi. ABDOMEN: Soft, nontender. Normoactive bowel sounds all 4 quadrants. No guarding or rebound, rigidity, no mass : No CVA tenderness EXTREMITIES: Normal range of motion, no clubbing or edema. Neurovascularly intact NEUROLOGICAL: Cranial nerves II through XII grossly intact. Moving all extremities SKIN: Warm, dry, no petechiae, no rashes or lesions. Initial Vital Signs Initial Vital Signs: Vital Signs Temperature 98.2 F 05/17/20 13:00 Pulse Rate 96 H 05/17/20 13:00 Respiratory Rate 14 05/17/20 13:00 Blood Pressure 113/76 05/17/20 13:00 Pulse Oximetry 100 05/17/20 13:00 Scores GCS [place] coma scale eye opening: Spontaneous Cassius coma scale verbal response: Orientated [place] coma scale motor response: Obey commands [place] coma scale total score: 15 Course Orders Ordered: ED Orders 05/17/20 13:05 Consult to AERIAL LINEMAN - Green Material Value Added Assessor Stat 05/17/20 16:00 Basic Metabolic Panel Stat Complete Blood Count AUTO DIFF Stat 05/17/20 16:30 COVID19 Stat Consultations Consultation #1: Dr. Germain kindly accepts on behalf of Dr. Hagen while attempting to find placement for hospice for this patient. Time: 18:13 Vital Signs Vital signs: Vital Signs - 8 hr 05/17/20 13:00 05/17/20 14:42 05/17/20 15:00 Temperature 98.2 F Pulse Rate 96 H 64 64 Respiratory Rate 14 16 Blood Pressure 113/76 138/68 108/61 Pulse Oximetry 100 97 97 05/17/20 15:30 05/17/20 15:31 05/17/20 16:33 Temperature Pulse Rate 66 69 62 Respiratory Rate 18 Blood Pressure 124/68 Pulse Oximetry 97 98 98 05/17/20 16:34 05/17/20 17:00 05/17/20 18:04 Temperature Pulse Rate 62 60 74 Respiratory Rate 18 16 18 Blood Pressure 115/64 119/64 96/54 L Pulse Oximetry 99 97 97 MDM - Recheck/Abnormal Lab/Rx Lab Data Attestation: I reviewed the patient's lab results. Result diagrams: 05/17/20 16:00 05/17/20 16:00 Labs: Lab Results 05/17/20 05/17/20 05/17/20 Range/Units 16:00 16:00 16:30 WBC 5.5 (4.5-11.0) X10^3/uL RBC 3.51 L (4.5-5.9) X10^6/uL Hgb 10.1 L (13.5-17.5) g/dL Hct 29.4 L (41-53) % MCV 84.0 (80-100) fL MCH 28.9 (26-34) PG MCHC 34.4 (30-36) % RDW 18.5 H (11.6-14.8) % Plt Count 218 (150-400) X10^3/uL Neut % (Auto) 70.2 (50-75) % Lymph % (Auto) 16.8 L (25-40) % Lamar % (Auto) 10.3 (3-14) % Eos % (Auto) 1.5 L (2-4) % Baso % (Auto) 1.2 (0-2) % Neut # (Auto) 3900 (3568-2803) /uL Lymph # (Auto) 900 L (2179-6471) /uL Lamar # (Auto) 600 (0-900) /uL Eos # (Auto) 100 (0-450) /uL Baso # (Auto) 100 (0-100) /uL Sodium 136 L (137-145) mmol/L Potassium 3.8 (3.4-5.1) mmol/L Chloride 100 (98-107) mmol/L Carbon Dioxide 33 H (22-32) mmol/L BUN 13 (9-20) mg/dL Creatinine 1.28 H (0.66-1.25) mg/dL Estimated GFR 56.8 L (>60) mL/min BUN/Creatinine Ratio 10.2 (6-22) Glucose 131 H (80-110) mg/dL Calcium 9.3 (8.4-10.2) mg/dL SARS-CoV-2 (PCR) Negative (Negative) Discharge Plan Departure Patient Disposition: Admitted as Observation Clinical Impression: Chronic pain due to neoplasm, Encounter for hospice care
[2020-05-17 16:19] LABS: Add Manual Diff / Slide Review NO; Basophils Absolute Auto 100 /uL (0-100); Basophils Percent Auto 1.2 % (0-2); Eosinophils Absolute Auto 100 /uL (0-450); Eosinophils Percent Auto 1.5 % (2-4); Hematocrit 29.4 % (41-53); Hemoglobin 10.1 g/dL (13.5-17.5); Lymphocytes Absolute Auto 900 /uL (1100-4500); Lymphocytes Percent Auto 16.8 % (25-40); Mean Corpuscular HGB Conc 34.4 % (30-36); Mean Corpuscular Hemoglobin 28.9 PG (26-34); Monocytes Absolute Auto 600 /uL (0-900); Monocytes Percent Auto 10.3 % (3-14); Neutrophils Absolute Auto 3900 /uL (1500-7000); Neutrophils Percent Auto 70.2 % (50-75); Platelet Count 218 X10^3/uL (150-400); Red Blood Cell Count 3.51 X10^6/uL (4.5-5.9); Red Cell Distribution Width 18.5 % (11.6-14.8); White Blood Cell Count 5.5 X10^3/uL (4.5-11.0)
--- NOTE | 2020-05-17 16:44 | CM.SWNOTE ---
DATACAP DEVELOPER note DATACAP DEVELOPER consult requested for patient. Patient is a 65 y/o male who presents to this ED requesting placement in SNF. Patient reports he was instructed by staff at the cancer care center to come to ED to secure hospice and SNF placement. Patient has [employer] and Medicare listed for insurance. DATACAP DEVELOPER enters room and speaks with patient and patient's friend Harrison. Patient reports he discontinued chemo, signed his boat over to his friend, and gave away his animals. Patient reports he is unable to control his pain, unable to care for himself, and has difficultly walking a short distance to the bathroom. DATACAP DEVELOPER explains that it may be a longer process to get patient connected with SNF and hospice and often isn't done from ED. DATACAP DEVELOPER exits room and [facility] DATACAP DEVELOPER speaks with Belinda and explains patient situation. Belinda explains that hospice is typically contacted after SNF placement secured. DATACAP DEVELOPER then calls [facility] and speaks with Krysta. DATACAP DEVELOPER explains patient situation to Krysta, who informs DATACAP DEVELOPER she will find the appropriate staff member to call DATACAP DEVELOPER back. DATACAP DEVELOPER leaves [phone] for call back. DATACAP DEVELOPER updates Dr. Orlando on the above. DATACAP DEVELOPER will continue to follow case while patient in ED. UC[facility] Donnelly
[2020-05-17 16:45] LABS: BUN Creatinine Ratio 10.2 (6-22); Blood Urea Nitrogen 13 mg/dL (9-20); Calcium 9.3 mg/dL (8.4-10.2); Carbon Dioxide 33 mmol/L (22-32); Chloride 100 mmol/L (98-107); Estimated Glomerular Filt Rate 56.8 mL/min (>60); Glucose 131 mg/dL (80-110); HEMOLYSIS < 15 (0-50); Potassium 3.8 mmol/L (3.4-5.1); Sodium 136 mmol/L (137-145)
[2020-05-17 17:06] LABS: COVID19 -Nasal RAPID Negative (Negative)
--- NOTE | 2020-05-17 19:09 | PM.HP.1 ---
History of Present Illness History of Present Illness Date Patient Seen: 05/17/20 Time Patient Seen: 19:13 Chief complaint: Needs To Go Into A Long-Term Narrative: 65-year-old male with metastatic prostate cancer and small cell lung cancer. Patient comes into the emergency room department saying he can not live anymore. Patient has been ongoing treatment with Oncology for metastatic prostate cancer and lung cancer. Patient states she does not want to do chemotherapy treatment radiation. He would be fine with medication and hospice. Says he is ready to . Patient is trying to get hooked up with hospice but has been unsuccessful. Patient states he is now sold his boat his home he has gotten rid of his CT in his dog. He does not want to go treatment. He has no place to stay currently. Says he thinks he needs to be admitted to hospice or palliative care. Patient is seen Dr. Hagen for couple of visits. He has a regular visitor to the oncology department. He was diagnosed with but prostate cancer and prostate biopsy in 2015. He has been using Lupron and Case index. Bone scan was consistent with metastatic disease and also a lung cancer. Metastatic disease sacrum femur ribs patient went through radiation treatment. Patient then was found to have lung cancer with PET scan uptake in the right upper lobe and right hilum and metastatic disease to the 9th rib. Patient also has a focal CIS and rectum patient underwent colonoscopy which showed metastatic prostate cancer in the colon. 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 Prostate cancer (~2015) Smoker unmotivated to quit Tarry stool Surgical History Hx of tonsillectomy Family & Social History Family History Mother Cancer Father Stomach cancer Social History: household members none Safety & Behavioral: Feels Safe in Current Yes Environment Been Physically Hurt or No Threatened By a Person Tobacco & Substance use: Tobacco type cigarettes Smoking Status Current every day smoker alcohol intake current alcohol intake frequency 0-2 drinks per day Substance Use Type does not use Meds Home Medications and Allergies Home Medications Medication Instructions Recorded Confirmed Type hydrocodone-acetaminophen [[place]] 1 tab PO Q4H PRN #10 tab 10/15/19 11/12/19 Rx ondansetron HCl [Zofran] 4 mg PO Q6H PRN 10/25/19 11/12/19 History dicyclomine 20 mg PO QID PRN #20 tab 11/10/19 11/12/19 Rx loperamide 2 mg PO Q4H PRN #20 cap 11/10/19 11/12/19 Rx ondansetron HCl [Zofran] 4 mg PO Q6H PRN #20 tab 11/10/19 11/12/19 Rx triamcinolone acetonide 1 applictn TOP TID #454 gram 11/10/19 11/12/19 Rx morphine 30 mg PO Q6H PRN #120 tab 02/07/20 Rx prednisone 5 mg PO BID #120 tab 03/17/20 Rx albuterol sulfate 1 inh INHALATION QID #1 unit 03/24/20 Rx bicalutamide [Casodex] 50 mg PO DAILY #100 tab 03/24/20 Rx dexamethasone 2 mg PO DAILY #21 tab 03/24/20 Rx lisinopril 20 mg PO DAILY #30 tab 03/24/20 Rx Allergies Allergy/AdvReac Type Severity Reaction Status Date / Time No Known Drug Allergies Allergy Verified 05/17/20 13:00 Exam Vital Signs (past 8 hours): - 05/17/20 13:00 05/17/20 14:42 05/17/20 15:00 Temperature 98.2 F Pulse Rate 96 H 64 64 Respiratory Rate 14 16 Blood Pressure 113/76 138/68 108/61 Pulse Oximetry 100 97 97 05/17/20 15:30 05/17/20 15:31 05/17/20 16:33 Temperature Pulse Rate 66 69 62 Respiratory Rate 18 Blood Pressure 124/68 Pulse Oximetry 97 98 98 05/17/20 16:34 05/17/20 17:00 05/17/20 18:04 Temperature Pulse Rate 62 60 74 Respiratory Rate 18 16 18 Blood Pressure 115/64 119/64 96/54 L Pulse Oximetry 99 97 97 05/17/20 18:30 05/17/20 19:00 Temperature Pulse Rate 60 60 Respiratory Rate Blood Pressure 113/57 L Pulse Oximetry 95 97 Oxygen Delivery Method Room Air Narrative Exam Narrative: Gen.: Alert and oriented x3 no apparent distress. HEENT: NCAT PERRLA tympanic membranes are clear nares are patent oral mucosa is moist no tonsillar hypertrophy neck is supple without lymphadenopathy no thyroid enlargement. Cardio: S1-S2 regular rate and rhythm no murmurs appreciated. Respiratory: Lungs are clear to auscultation no wheezes or crackles normal respiratory effort. Abdomen: Soft nontender no rebound or guarding no liver spleen enlargement no appreciable hernias Extremities: Full range of motion no appreciable weakness no cyanosis or edema. Neurologic: Grossly intact. Objective Labs Result Diagrams: 05/17/20 16:00 05/17/20 16:00 Labs: Laboratory Results - last 24 hr 05/17/20 05/17/20 05/17/20 16:00 16:00 16:30 WBC 5.5 RBC 3.51 L Hgb 10.1 L Hct 29.4 L MCV 84.0 MCH 28.9 MCHC 34.4 RDW 18.5 H Plt Count 218 Neut % (Auto) 70.2 Lymph % (Auto) 16.8 L [place] % (Auto) 10.3 Eos % (Auto) 1.5 L Baso % (Auto) 1.2 Neut # (Auto) 3900 Lymph # (Auto) 900 L [place] # (Auto) 600 Eos # (Auto) 100 Baso # (Auto) 100 Sodium 136 L Potassium 3.8 Chloride 100 Carbon Dioxide 33 H BUN 13 Creatinine 1.28 H Estimated GFR 56.8 L BUN/Creatinine Ratio 10.2 Glucose 131 H Calcium 9.3 SARS-CoV-2 (PCR) Negative Assessment & Plan Assessment & Plan narrative: Metastatic prostate cancer to bone. Has had radiation and chemotherapy not only has he had metastatic disease to the bone but it is also to the colon and liver. Small cell lung cancer. With metastatic disease to the ribs cranial fossa lung Diverticulosis of the colon BPH Current smoker Alcohol abuse quit 3 months ago on his own Disposition and plan. Patient states she is tired to chemotherapy radiation and cancer. Patient states he would like to go to a [facility] and have hospice. Patient does not want undergo any further treatment in quit treatment a a month or so ago. He is hoping for better pain management and hospice consultation. Tried to get him hooked up in the emergency room but were unsuccessful. He will be admitted the hospital for palliative care hospice consultation.
--- NOTE | 2020-05-17 22:09 | PC.ADMIT ---
[email or web address] Delivery Admission Note: The patient,Rylan Yeung,65 y/o, was given written information regarding hospital policies, unit procedures and contact persons. Patient's smoking status: Current every day smoker. Vital Signs - 8 hr 05/17/20 14:42 05/17/20 15:00 05/17/20 15:30 Temperature Pulse Rate 64 64 66 Respiratory Rate 16 Blood Pressure 138/68 108/61 Pulse Oximetry 97 97 97 05/17/20 15:31 05/17/20 16:33 05/17/20 16:34 Temperature Pulse Rate 69 62 62 Respiratory Rate 18 18 Blood Pressure 124/68 115/64 Pulse Oximetry 98 98 99 05/17/20 17:00 05/17/20 18:04 05/17/20 18:30 Temperature Pulse Rate 60 74 60 Respiratory Rate 16 18 Blood Pressure 119/64 96/54 L Pulse Oximetry 97 97 95 05/17/20 19:00 05/17/20 19:30 05/17/20 20:20 Temperature 98.3 F Pulse Rate 60 59 L 56 L Respiratory Rate 18 Blood Pressure 113/57 L 92/58 L 116/70 Pulse Oximetry 97 97 100 Pt arrived via stretcher from ED, transferred self to bed. Refused to change into gown, meds reconciled, only taking morphine for pain, has stopped all other meds. No hx of falls. Refused to have port accessed in ED, PIV in place. Low fall risk, independent in the room. Call light and safety education given, acknowledged all teaching.
[2020-05-18 02:00] VITALS: BP 118/73; PULSE 58; RESP 16; TEMP 36.3; O2SAT 97
--- NOTE | 2020-05-18 02:25 | PC.NURSE ---
Patient has been sleeping since start of shift but aroused to touch and calling name. Is alert and oriented with flat affect and expresses self in vague terms. Breath sounds CTA with RA sat of 97%. HRR with rate of 58. Denies nausea. BT present and abdomen is soft. Denies dysuria, frequency or urgency with urination; refuses to have urine measured. States having rectal and right rib pain and rates severity as 7/10 which he states is his baseline and declines any further pain medication at this time. Is unable to describe pain except to say it is constant. Able to move himself in bed and up to bathroom independently. Refuses use of SCD's so reminded to ankle wave when awake. Fall risk score is low.
[2020-05-18 06:00] VITALS: BP 121/58; PULSE 52; RESP 18; TEMP 36.7; O2SAT 98
--- NOTE | 2020-05-18 07:43 | PC.NURSE ---
Addendum entered by Nick Luke R.N. 05/18/20 14:12: Pt reiterated his need to be left alone and said he would call when he needed something. Made clear to the Pt that we were here for him and that we would assist in anyway we can. Pt appreciated that and said he would call. See Nurse Lauryn's note. Addendum entered by Nick Luke R.N. 05/18/20 09:51: Checking hourly on Pt. Pt does not respond to name and doesn't want any meds or procedures or VS's per noc shift RN. Pt has made it known he is done. Spoke with Dr. Germain again and he will write Comfort Care orders. Meds are available if Pt requests them. I am trying to attempt to tell Pt we understand his requests and will do what he needs us to do but only at his request. Original Note: Looked in on Patient who is presently sleeping restfully. Will give him more time to sleep. Spoke with Dr. Germain about hospital course. Will contact Care Management this morning. Pt refusing cares and meds in prior shift. Dr. Germain says that Pt came here to get set up with Hospice and placement and that he has sold all his belongings and boat and given away his dog and cat.
--- NOTE | 2020-05-18 08:03 | P.PN_ITS ---
Subjective Subjective Date Patient Seen: 05/18/20 Time Patient Seen: 08:03 Interval history: Patient seen and evaluated this morning states she is tired otherwise is doing well. Vital signs were stable overnight. Not a lot of diarrhea. Not complaining much pain. Discussed about hospice care potential halfway admission. Patient is okay with that. No nausea eating okay. Vital signs stable throughout the evening. Exam Vital Signs (past 8 hours): - 05/18/20 02:00 05/18/20 06:00 Temperature 97.4 F L 98.0 F Pulse Rate 58 L 52 L Respiratory Rate 16 18 Blood Pressure 118/73 121/58 L Pulse Oximetry 97 98 Oxygen Delivery Method Room Air Oxygen Flow Rate 0 Narrative Exam Narrative: Gen.: Alert good historian comfortable appearing older than stated age HEENT: NC/AT pupils equal round and reactive or mucosa is moist neck is supple no appreciable lymphadenopathy Cardio: S1-S2 regular rate and rhythm no murmurs appreciated. Respiratory: Lungs are clear to auscultation no wheezes or crackles normal respiratory effort. Abdomen: Soft mild diffuse tenderness no rebound no guarding no liver enlargement Extremities: Full range of motion no appreciable weakness no cyanosis or edema. Neurologic: Grossly intact. Objective Labs Result Diagrams: 05/17/20 16:00 05/17/20 16:00 Labs: Laboratory Results - last 24 hr 05/17/20 05/17/20 05/17/20 16:00 16:00 16:30 WBC 5.5 RBC 3.51 L Hgb 10.1 L Hct 29.4 L MCV 84.0 MCH 28.9 MCHC 34.4 RDW 18.5 H Plt Count 218 Neut % (Auto) 70.2 Lymph % (Auto) 16.8 L [place] % (Auto) 10.3 Eos % (Auto) 1.5 L Baso % (Auto) 1.2 Neut # (Auto) 3900 Lymph # (Auto) 900 L [place] # (Auto) 600 Eos # (Auto) 100 Baso # (Auto) 100 Sodium 136 L Potassium 3.8 Chloride 100 Carbon Dioxide 33 H BUN 13 Creatinine 1.28 H Estimated GFR 56.8 L BUN/Creatinine Ratio 10.2 Glucose 131 H Calcium 9.3 SARS-CoV-2 (PCR) Negative [facility] Medical History Alcohol abuse BPH loc w urin obs/LUTS Closed left tibial fracture Current smoker Diverticula, colon HTN (hypertension) Intermittent epigastric abdominal pain Liver metastases 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 Prostate cancer (~2016) Smoker unmotivated to quit Tarry stool Surgical History Hx of tonsillectomy Family History Mother Cancer Father Stomach cancer Social History household members: none Smoking Status: Current every day smoker alcohol intake: current substance use type: does not use and marijuana Assessment & Plan Assessment & Plan narrative: Prostate cancer with metastatic disease to bone and colon with chronic diarrhea Small cell lung cancer with metastatic disease to bone and brain Anemia of chronic disease BPH Smoker 65-year-old male undergoing treatment with chemotherapy radiation for prostate cancer and lung cancer. Presents to the emergency department stating he is done. Patient does not want treatment for his cancer anymore stopped his medication for treatment other than pain medication. He is looking for hospice evaluation and palliative care. We will provide social work specialist consultation today. I guess he currently does not have a place that is amenable to live at home. And will most likely need placement. Laboratory testing is normal today his vital signs are normal. Continue to work on placement for this patient to hospice and palliative care.
[2020-05-18] MEDS: MORPHINE IR 15 MG TABLET 30 MG PO (12:28)
--- NOTE | 2020-05-18 13:09 | PC.NURSE ---
Pt c/o pain all over -01/16 agreed to take PO Morphine as ordered. Pt became quite talkative and teary-states he is done stated he had to give away his dog, cat, boat, skiff, and everything else he owns other than what he has with him in his room. Pt was eating his lunch - has poor dentition and states he only has a few teeth left which are audibly grinding as he chews his sandwich. Appreciative of conversation and calm but clearly saddened by his loss and his situation. He stated he was really just hoping that he could go to a fci to because he can no longer take care of himself. Stated he has not been eating or drinking and while on his boat was only going from bed to toilet and back to bed. He appears gaunt. Encouraged fluid intake and Pt has several juices in front of him which he was drinking. Pt stated he needed to go to the bathroom-up to br with standby and stated he has to just sit on the toilet for a while to get any stool or urine out but states he is peeing very little and very infrequently. Pt agrees to call for assistance as needed and denies needs at this time.
--- NOTE | 2020-05-18 14:54 | PC.NURSE ---
Pt has responded when I have asked if he wants or needs anything but has declined to let me take his vitals for this shift.
--- NOTE | 2020-05-18 15:31 | CM.DANOTE ---
DCP assessment: EMR Reviewed: patient is a 65 yr old male with metastatic cancer. Patient states he is tired of treatment and I wants to be done. Patient recreantly gave away his pets, his boat (which is where he lived) and now wants hospice and to go to a SNF. Patient is currently on comfort care and wants hospice services. CM explained that due to the fact that he is not wanting rehab does not have the resources to pay for [facility], does not have medicaid (but may qualify for it). CM explained to patient that going to a SNF will be challenging since the patient is on comfort care and has [employer] medicare advantage. Alec in the ED met with patient and talked with [facility] and they said that once he has a place to DC to [facility] they can set up services. CM Called [facility] at the patients request and they are reviewing for possible admission at DC Patient stated he thought he would qualify for medicaid and that maybe medicaid would cover his stay at [facility] or [facility] [place]. CM not able to fill out Medicaid application today but will pass it on for follow up CM contacted [facility] and they currently have beds , CM sent patients clinical information to review. [facility] cost $300- $350 a day for room and board fee but that would be covered by medicaid if approved. CM department will follow up with patient to do medicaid application, follow up with [facility] and help with determining DC placement. patient would rather go to [facility] or SNF with hospice here in [place] or [facility] but is open to [facility] if that is the last option. I: [employer] medicare advantage and self pay Plan: DC plan to be determined- patient wants hospice and SNF but cant afford to pay out of pocket for [facility] or SNF. CM department will follow and work on DC planning. Mallorie Harmon RN Discharge Planning/Care Management Advanced directive, confirm from FAMILY Start: 05/17/20 21:01 Freq: Q24H Status: Active Protocol: Document 05/17/20 21:01 KMD (Rec: 05/17/20 21:06 KMD [id number]) Advance Directive, confirm on record Time 21:06 Person contacted Friend Copy received No CM Discharge Assessment Start: 05/18/20 15:28 Freq: Status: Active Protocol: Document 05/18/20 15:28 HS (Rec: 05/18/20 15:30 HS [id number]) Discharge Planning Assessment Assigned Edgerman Mallorie Harmon RN DPOA/Assigned Designee Name none Advance Directives? Yes History Provided By Patient,Medical Record Has Patient been admitted in last 30 No days? Comment Chidi lived on his boat- reciently gave boat to his neighbor and does not have a place to go. Household Members none Type of transporation used prior to Relies on Others admit Independent with ADL's Yes Is patient alert and oriented? Yes Caregiver for Another No Comment [facility] with Hospice vs. [facility]osp[facility] in [place] Barriers to Discharge Yes Comment DC location Discharge Plan Assisted Living Facility Additional Comment Referrals to hospice, medicaid ari and [facility] Whiteboard Updated in Patient Room with Yes name and ext. # of Edgerman Review Status In Process Next Review Type Continued Stay Review
--- NOTE | 2020-05-18 15:46 | PC.NURSE ---
Addendum entered by Lola Adkins R.N. 05/18/20 20:59: Pt allowed SEPARATIONS SCIENTIST to take a set of vital signs but has refused all other interventions including assessment. Has made no request for pain meds so far on shift. Original Note: Shift note: At this time, patient is known to not want assessments or vital signs done. Will ask if these times can be done when opportunity presents itself. Patient has orders for limited interventions. Will continue to monitor.
[2020-05-18 18:10] VITALS: BP 99/54; PULSE 55; RESP 16; TEMP 36.8; O2SAT 99
--- NOTE | 2020-05-19 00:33 | PC.NURSE ---
Pt. sleeping at this time. Will assess when he wakes up, will monitor.
[2020-05-19] MEDS: MORPHINE IR 15 MG TABLET 30 MG PO ×3 (05:37→16:53)
[2020-05-19 05:51] VITALS: BP 131/81; PULSE 50; RESP 18; TEMP 36.5; O2SAT 97
--- NOTE | 2020-05-19 08:35 | PM.PN.1 ---
Subjective Subjective Date Patient Seen: 05/19/20 Time Patient Seen: 08:30 Interval history: Patient is sleeping in his room and given he is comfort care etcetera chose not to wake him Review of the chart and discussed with Dr. Germain. I have only seen the patient in person once in July and a failed tele health visit that turned into a telephone only visit in September. Has been followed by Oncology here. Formally living on a boat but has given way all of his positions apparently wanting to be done with his current situation. No obvious new complaints. Issue appears to be placement since patient currently has no place to stay once he leaves the hospital. He was assuming he could be put in the residential and spend spinal days there which of course is much more complicated than that. 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 When appropriate discharge facility can be located patient can be discharged. He would benefit from hospice care. All of the above has been initiated through the Care Management Department. Continue with symptom control comfort care. Patient not really requiring anything at this point. He is declining all oral intake etcetera. Note: Greater than 15 minutes was spent evaluating the patient on the floor, including examining the patient, discussing clinical course with clinical and nursing staff, reviewing clinical course in the computer, preparing documentation and writing orders for continued management of care, discussing status with family as appropriate, reviewing plans for the next 24 hours with both patient/family and nursing staff as appropriate.
--- NOTE | 2020-05-19 09:10 | PC.NURSE ---
Addendum entered by Jorge Oakley R.N. 05/19/20 14:35: patient refused nicotine patch, initially didn't want lunch tray, but then requested same which was ordered from kitchen. patient ate 100%. Addendum entered by Jorge Oakley R.N. 05/19/20 11:13: PATIENT AWAKE, HAD LONG DISCUSSION WITH CM. REQUESTED ORAL PAIN MEDICATION. DECLINED BREAKFAST. HIS FRIEND WENDI IS AT BEDSIDE AT THIS TIME. PATIENT REFUSES SCD'S. WOULD LIKE PIV REMOVED. NOTIFIED PATIENT THAT THE PIV IS FOR PRN IV MORPHINE. OH, I'M NOT GOING TO NEED THAT. WILL DISCUSS SAME WITH MD. Original Note: PATIENT SLEEPING, APPEARS COMFORTABLE. RESPIRATIONS EVEN AND UNLABORED.
[2020-05-19] MEDS: SODIUM CHLORIDE 0.9% FLUSH 10 ML IV (10:55)
[2020-05-19 10:57] VITALS: BP 123/61; PULSE 51; RESP 15; TEMP 36.6; O2SAT 100
--- NOTE | 2020-05-19 13:40 | CM.DANOTE ---
Addendum entered by Noy Harmon 05/20/20 13:21: Expedited Medicaid/[employer] application faxed. KJS Original Note: DCP/continued: Reviewed record. Current d/c plan is for patient to go to [facility] for continued comfort care. LACE TEARING SUPERVISOR placed call to [facility] spoke with both Yadira and Mini. They have reviewed clinical and feel patient appropriate for inpatient hospice house. Met with patient and friend/Sarthak at bedside. Patient aware that he has been accepted at [facility]. Patient inquiring on whether or not he can smoke? Per facility he cannot. Consents sent from [facility] to be signed. Will discuss and have signed and fax back. In addition, will call provider to let him know plan. P: [facility] in AM on 05-20-20. UCHE Salcido
--- NOTE | 2020-05-19 15:38 | PC.NURSE ---
Patient refused Vital Signs.
--- NOTE | 2020-05-20 00:56 | PC.NURSE ---
Patient sound asleep, will monitor & assess when he wakes up.
[2020-05-20 05:00] VITALS: BP 120/67; PULSE 61; RESP 17; TEMP 36.7; O2SAT 99
[2020-05-20] MEDS: MORPHINE IR 15 MG TABLET 30 MG PO ×2 (05:16→12:40)
--- NOTE | 2020-05-20 08:05 | PM.DS.1 ---
History of Present Illness History of Present Illness Date Patient Seen: 05/20/20 Time Patient Seen: 08:06 Chief complaint: Needs To Go Into A Penitentiary Narrative: 65-year-old male with metastatic prostate cancer and small cell lung cancer. Patient comes into the emergency room department saying he can not live anymore. Patient has been ongoing treatment with Oncology for metastatic prostate cancer and lung cancer. Patient states she does not want to do chemotherapy treatment radiation. He would be fine with medication and hospice. Says he is ready to . Patient is trying to get hooked up with hospice but has been unsuccessful. Patient states he is now sold his boat his home he has gotten rid of his CT in his dog. He does not want to go treatment. He has no place to stay currently. Says he thinks he needs to be admitted to hospice or palliative care. Patient is seen Dr. Hagen for couple of visits. He has a regular visitor to the oncology department. He was diagnosed with but prostate cancer and prostate biopsy in 2016. He has been using Lupron and Case index. Bone scan was consistent with metastatic disease and also a lung cancer. Metastatic disease sacrum femur ribs patient went through radiation treatment. Patient then was found to have lung cancer with PET scan uptake in the right upper lobe and right hilum and metastatic disease to the 9th rib. Patient also has a focal CIS and rectum patient underwent colonoscopy which showed metastatic prostate cancer in the colon. {from Dr. Germain's H&P 05/17/20} Discharge Providers Provider Date of admission: 05/17/20 19:02 Discharge Date: 05/20/20 Primary care physician: Husam Hagen MD Consults: 05/17/20 13:05 Consult to [facility] [place] Stat Comment: 05/17/20 19:08 Consult to Discharge Planning Routine Comment: Consult to Hospice Referral Urgent Comment: Discharge provider: Husam Hagen MD Summary Hospital Course Discharge Diagnosis: 1. Prostate cancer 2. Metastases to bone 3. Small cell lung cancer 4. Chronic pain, due to his neoplastic process Hospital Course: Patient presented to the [facility] Emergency Department as above saying he was ready done treating his cancers and was seeking hospice care for end of life care. He had made final arrangements for exposing of all of his property etcetera Admitted to the hospital for care wall care management team contacted hospice and found placement for him in [facility]. As patient had sold his positions including his boat where he was living he had no place to go for residence and was admitted to an inpatient hospice in [facility]. Patient did not require any opiates during this hospitalization. Patient did have a nicotine patch place to help with his cigarette smoking as he will not be able to smoke in the hospice center Status at Discharge Cognitive/behavioral status at discharge: at baseline, oriented Functional status at discharge: independent ambulation Overall status at discharge: patient is back to baseline Time Spent with Patient Time spent: Less than 30 minutes Exam Vital Signs (past 8 hours): - 05/20/20 05:00 Temperature 98.0 F Pulse Rate 61 Respiratory Rate 17 Blood Pressure 120/67 Pulse Oximetry 99 Oxygen Delivery Method Room Air Oxygen Flow Rate 0 Objective Labs Result Diagrams: 05/17/20 16:00 05/17/20 16:00 [facility] Medical History Alcohol abuse BPH loc w urin obs/LUTS Closed left tibial fracture Current smoker Diverticula, colon HTN (hypertension) Intermittent epigastric abdominal pain Liver metastases 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 Prostate cancer (~2015) Smoker unmotivated to quit Tarry stool Surgical History Hx of tonsillectomy Family History Mother Cancer Father Stomach cancer Social History household members: none Smoking Status: Current every day smoker alcohol intake: current substance use type: does not use and marijuana Discharge Plan Discharge Plan Patient Disposition: Hospice - Home Other facility: [facility] Discharge orders & Medications Discharge Orders: Discharge (Order); Ordered 05/20/20 Ordered By: Husam Hagen Prescriptions: New nicotine 14 mg/24 hr Patch 24 Hour 14 mg topical DAILY Qty: 3 RF: 0 Discontinued morphine 30 mg tablet 30 mg PO Q6HR RF: 0 Follow up/Referrals: Husam Hagen MD [Primary Care Provider] - Discharge Health Status Multidrug resistant organism: No MDRO Diet/Activity/Treatments Diet: Diet as Tolerated Discharge Data Primary Care Provider: Husam Hagen Attending Provider: Husam Hagen
--- NOTE | 2020-05-20 11:57 | PC.NURSE ---
Addendum entered by Jorge Oakley R.N. 05/20/20 13:18: report and packet given to ems personel. patient left with all belongings without s/sx's of distress. Addendum entered by Jorge Oakley R.N. 05/20/20 12:52: Patient medicated with 30mg Morphine IR po for 8/10 rectal pain at 1240. Report called to Rahul at [facility] [phone]. Reported that patient has had trouble managing leakage from rectal cancer and alternates constipation and diarrhea. Hasn't had BM x 4 days. Declines intervention at this time, but perhaps can be further addressed at Hospice facility. Notified of pain regimen here and last dose of morphine IR time. [facility] with manage his pain regimen and prescribe per their doctors. Patient on Ra, lungs clear, sat's high 90's. denies sob. All questions answered to satisfaction. provided this phone number to call with questions as needed. printed packet to sent with ambulance transport staff with h&p, med list, dc summary, dc instructions. also reviewed dc instructions with patient to is in agreement with plan. Original Note: PATIENT SLEPT THROUGHOUT MORNING, DECLINED BREAKFAST WHEN AWAKENED WITH OPTION. AGREES TO LUNCH AND APPLE JUICE AT THIS TIME. CM IN WITH PATIENT TO NOTIFY TIME OF AMBULANCE TRANSF IS 1315. WILL MEDICATE PATIENT PRIOR TO DC.
--- NOTE | 2020-05-20 12:17 | CM.DPNOTE ---
Set up transport with [facility] for 12:30 crab picker to [facility] today. Spoke to Errol. Nadya Tang CM Asst.
--- NOTE | 2020-05-20 12:21 | CM.DPNOTE ---
Faxed [facility] [phone] med list and DC summary and received fax confirmation. Nadya Tang CM Asst.
== END 2020-05-20 13:19 | disposition hospice, home (50) ==
LOC: ED 18:13 → AC 19:03
PROVIDERS: Admitting Provider Family Medicine; Emergency Provider Emergency Medicine; PCP Internal Medicine; Referring Provider Emergency Medicine; Visit Provider Internal Medicine
DX: G89.3 Neoplasm related pain (acute) (chronic) (principal); C61 Malignant neoplasm of prostate; C78.00 Secondary malignant neoplasm of unspecified lung; C79.51 Secondary malignant neoplasm of bone; C78.5 Secondary malignant neoplasm of large intestine and rectum; C78.7 Secondary malignant neoplasm of liver and intrahepatic bile duct; I10 Essential (primary) hypertension; F17.210 Nicotine dependence, cigarettes, uncomplicated; Z51.5 Encounter for palliative care; Z20.822 Contact with and (suspected) exposure to COVID-19
CPT/HCPCS: 36415; 80048; 85025; 87635; 99217; 99220; 99225; 99283; C9803; G0378